=== PATIENT | female | born 1995 | race Caucasian/White ===

== ENCOUNTER 2018-12-08 11:44 | Outpatient (REF) | payer MEDICAID, SELFPAY ==
--- NOTE | 2018-12-08 10:45 | PAPFT_PTH ---
PATIENT: Nimisha Olivo LOC: [facility] U#:[id number] AGE/SX: 23/F ROOM: RE12/08/[address]: Mahnaz Gilbert NP : 1995 BED: DIS: 12/08/2018 SPEC #: [id number] RECD: 12/08/18 18:11 STATUS: ASHLEIGH RENadia #: [id number] LUL: 12/08/18 10:[address]: Mahnaz Gilbert NP DEPT: [facility] Cytology RECD BY: Genevieve Gonzalez ENTERED: 12/08/18 18:11 SP TYPE: PAPFT OTHR DR: Yaw Becerra MD Tissues: 1 - CX/ENDOCX FOR PAP SMEARS Procedures: PAP THIN PREP/[facility] Screening Comments: [id number] (CHLAMYDIA/GC)
[2018-12-09 13:35] LABS: Chlamydia Result Negative; GC Result Negative; Specimen Description SEE COMMENTS
== END 2018-12-08 12:04 ==
LOC: LBN 11:44
PROVIDERS: PCP Pediatrics; Visit Provider Nurse Practitioner Women's Health
DX: Z12.4 Encounter for screening for malignant neoplasm of cervix (principal); Z11.3 Encounter for screening for infections with a predominantly sexual mode of transmission
CPT/HCPCS: 87491; 87591; 88142

== ENCOUNTER 2019-03-10 13:24 | Outpatient (REF) | payer MEDICAID, SELFPAY ==
[2019-03-10 18:15] LABS: HCT 43.4 % (36.0-46.0); HGB 14.4 g/dL (12.0-15.5); Mean Corp. HGB Concentration 33.2 g/dL (32.0-36.0); Mean Corpuscular Hemoglobin 28.9 pg (27.0-33.0); Platelet Count 266 x1000/uL (130-400); RBC 4.99 m/cumm (4.00-5.20); RBC Distribution Width 13.8 % (11.7-14.6); White Blood Cell Count 7.91 k/cumm (4.4-10.8)
[2019-03-10 18:20] LABS: ALT 17 U/L (12-78); AST 14 U/L (15-37); Albumin 3.3 g/dL (3.4-5.0); Alkaline Phosphatase 90 U/L (46-116); BUN 10 mg/dL (7-18); Bilirubin, Total 0.3 mg/dL (0.2-1.0); CREATININE 0.63 mg/dL (0.55-1.02); Calcium 9.3 mg/dL (8.5-10.1); Chloride 103 mmol/L (98-107); Glucose 88 mg/dL (70-100); Potassium 4.4 mmol/L (3.5-5.1); Sodium 139 mmol/L (136-145); Total Protein 6.7 g/dL (6.4-8.2)
== END 2019-03-10 13:44 ==
LOC: NCHCN 13:24
PROVIDERS: PCP Pediatrics; Visit Provider Nurse Practitioner Family
DX: N92.4 Excessive bleeding in the premenopausal period (principal)
CPT/HCPCS: 80053; 85027

== ENCOUNTER 2019-07-18 01:38 | Outpatient (CLI) | payer MEDICAID, SELFPAY ==
--- NOTE | 2019-07-18 10:23 | DI.US_ITS ---
EXAM: US BREAST LT LIMITED CLINICAL HISTORY: 2 x 2 x 1 cm lump felt at 12:00 o'clock at bra line, N63.20, pt states 5:00 o'cloc k TECHNIQUE: Ultrasound performed using standard protocol. FINDINGS: Ultrasound examination of the breast was performed to evaluate questionable palpable abnormality in t he 5 o'clock position. No intramammary mass was identified. A 13 x 12 x 2 millimeter subcutaneous h ypoechoic avascular horizontally oriented nodule was seen which is not in breast parenchyma. IMPRESSION: No intramammary mass identified.
== END 2019-07-18 01:58 ==
PROVIDERS: Visit Provider Nurse Practitioner Women's Health
DX: N63.23 Unspecified lump in the left breast, lower outer quadrant (principal); R22.2 Localized swelling, mass and lump, trunk
CPT/HCPCS: 76642

== ENCOUNTER 2019-10-03 22:15 | Emergency (ER) | payer MEDICAID, SELFPAY ==
[2019-10-03 22:20] VITALS: BP 121/86; PULSE 90; RESP 16; TEMP 36.2; O2SAT 96
--- NOTE | 2019-10-03 22:30 | ED.GENADUL_ITS ---
Discharge Plan Disposition Patient Disposition: HOME Condition: Good Discharge Details Chief Complaint: RashLesion Clinical Impression: Herpetic mayra Primary Care Provider: Radha,Local ED Provider: Indra Lozano Home Meds and New Rx's Prescriptions: New acyclovir 5 % cream 1 applic TP Q4H 7 Days Qty: 5 RF: 0 No Action methadone 10 mg tablet 100 mg PO DAILY RF: 0 Discharge Instructions Additional Instructions: You have herpetic mayra at this stage. There is no evidence of bacterial infection currently. Please apply the cream as directed. Please keep your lesions covered with a Band-Aid at all times. Once the symptoms resolve I would recommend talking with your primary care provider about potential chronic prophylaxis with oral medication if you notice any worsening of your symptoms, or any new symptoms such as vomiting, diarrhea, fever, chills, shortness of breath, chest pain, numbness, weakness, or fainting , please return immediately to the emergency department for reevaluation. Please follow up with your primary care provider as soon as possible for reassessment and reevaluation. As always, it was a pleasure participating in your medical care today. Medical Decision Making This is a 24-year-old female who presents today with 3 small lesions on the distal tip of her right index finger. There is associated burning. Is been present for the last 24 to 48 hours. She had similar lesions in the same location a few years ago, however they resolved on their own. Signs and symptoms appear clinically consistent with early herpetic marya. Will prescribe topical acyclovir. Discussed the importance of always keeping it covered. At this time there is no clinical evidence of cellulitis, abscess, joint infection, or other significant abnormality. She denies IV or illicit drug use, she does state that she used to do IV drugs 2 to 3 years ago but has not used any since then. No cardiac murmur on exam. No evidence of Osler nodes or Janeway lesions. I have extensively reviewed the treatment plan and discharge instructions with the patient. I have addressed all patient concerns at this time. The patient was made aware of what symptoms to monitor for that would warrant a return to the emergency department. Discussed the plan with the patient, they demonstrate verbal understanding and agreement with our assessment and plan at this time. HPI General Date/Time Provider Initiated Documentation: 10/03/19 22:16 . HPI Narrative: 24-year-old female with no significant past medical history who presents today for evaluation of small lesions on her right index finger. Patient states that the rash developed 48 hours ago, is gradually been worsening. She admits to mild burning sensation in that location. She did have symptoms like this 2 or 3 years ago, however they resolved on its own. She denies any fever or chills. She denies any previous history of herpes. She has no other complaints at this time. No other modifying factors. Related Data Home Medications Medication Instructions Recorded Confirmed methadone 10 mg tablet 100 mg PO DAILY tab 09/05/19 10/03/19 acyclovir 1 applic TP Q4H 7 Days #5 gm 10/03/19 Previous Rx's Medication Instructions Recorded acyclovir 1 applic TP Q4H 7 Days #5 gm 10/03/19 Allergies Allergy/AdvReac Type Severity Reaction Status Date / Time No Known Allergies Allergy Unverified 10/03/19 22:22 General Stated Complaint: RashLesion FERNANDA: 5 Review of Systems All systems reviewed & are unremarkable except as noted in HPI and below PFSH Medical History (Updated 07/24/19 @ 09:14 by Mahnaz Gilbert NP) History of opioid abuse (Acute) Subcutaneous nodule of breast (Acute) L breast, US done 07/21/19 Social History (Updated 12/08/18 @ 12:12 by Mahnaz Gilbert NP) Smoking/Tobacco Use Status: Current every day Tobacco Type: cigarettes Alcohol Intake: current Alcohol Intake frequency: a few times a week Drug use: Current Sobriety Substance use type: former substance user What type of physical activity do you participate in: none Do you feel safe at home: Yes Do you feel safe in your relationship?: Yes Female Reproductive History Menstrual control method: pills (gets them from [facility]) Exam Narrative Exam Narrative: 1.Const: Well-nourished, Well-developed, appearing stated age 2.Eyes: PERRL, no conjunctival injection, and symmetrical lids. 3.ENT: Atraumatic external nose and ears. Moist MM. Neck: Symmetric, trachea midline, No thyromegaly. 4.CVS: +S1/S2, No murmurs or gallops. Peripheral pulses 2+ and equal in all extr emities. Brisk capillary refill in all extremities. 5.RESP: Unlabored respiratory effort. Clear to auscultation bilaterally. No wheezes rales or rhonchi 6.GI: Soft, Nontender/Nondistended, No hepatosplenomegaly. No guarding or rebound. 7.MSK: Normocephalic/Atraumatic, Extremities w/o deformity or ttp No cyanosis or clubbing, Normal movement of all extremities 8.Skin: Warm, Dry. Right index finger demonstrates 3 small lesions, dark centers, mild pale borders, on the lateral aspect of the distal tip of the right index finger. No vesicles at this point. No redness warmth or drainage. Normal movement of the finger. 9.Neuro: clinical trial assistant II-XII grossly intact. Sensation grossly intact, no focal neurologic deficits. 10.Psych: (AAO) x3. Appropriate mood and affect Course Vital Signs Vital signs: Vital Signs Temperature 36.2 C L 10/03/19 22:20 Pulse 90 10/03/19 22:20 Respiratory Rate 16 10/03/19 22:20 Blood Pressure 121/86 10/03/19 22:20 Pulse Oximetry 96 10/03/19 22:20 Temperature 36.2 C L 10/03/19 22:20 Temperature Source Temporal Artery Scan 10/03/19 22:20 Pulse 90 10/03/19 22:20 Respiratory Rate 16 10/03/19 22:20 Respiratory Effort Non-Labored 10/03/19 22:22 Blood Pressure 121/86 10/03/19 22:20 Blood Pressure Position Sitting 10/03/19 22:20 Pulse Oximetry 96 10/03/19 22:20 Oxygen Delivery Method Room Air 10/03/19 22:20 Oxygen Flow Rate 0 10/03/19 22:20 Pain Level 7 10/03/19 22:20
--- NOTE | 2019-10-04 14:12 | W.ED.FU ---
[facility] called to state that patient's insurance does not cover acyclovir cream or ointment. Upon review of herpeniya nunez on up-to-date, you can also prescribe acyclovir 200 mg 3-4 times daily. A prescription was given over the phone to the pharmacist for acyclovir 200 mg p.o. 3 times daily x7 days.
== END 2019-10-03 22:35 | disposition home or self-care (01) ==
PROVIDERS: Emergency Provider Student in an Organized Health Care Education/Training Program
DX: B00.89 Other herpesviral infection (principal)
CPT/HCPCS: 99283

== ENCOUNTER 2019-10-05 09:34 | Outpatient (REF) | payer MEDICAID, SELFPAY ==
[2019-10-05 12:26] LABS: HCT 43.3 % (36.0-46.0); HGB 14.4 g/dL (12.0-15.5); Mean Corp. HGB Concentration 33.3 g/dL (32.0-36.0); Mean Corpuscular Volume 87.3 fL (80-95); Mean Platelet Volume 9.4 fL (8.0-11.0); Platelet Count 300 x1000/uL (130-400); RBC 4.96 m/cumm (4.00-5.20); RBC Distribution Width 13.4 % (11.7-14.6); White Blood Cell Count 9.53 k/cumm (4.4-10.8)
[2019-10-05 12:43] LABS: ALT 14 U/L (14-59); AST 16 U/L (15-37); Albumin 3.5 g/dL (3.4-5.0); Alkaline Phosphatase 83 U/L (46-116); Anion Gap 7.6 mmol/L (3-11); BUN 7 mg/dL (7-18); Bilirubin, Total 0.2 mg/dL (0.2-1.0); CO2 31.4 mmol/L (21.0-32.0); CREATININE 0.58 mg/dL (0.55-1.02); Calcium 9.2 mg/dL (8.5-10.1); Chloride 103 mmol/L (98-107); Glucose 85 mg/dL (74-106); Potassium 3.9 mmol/L (3.5-5.1); Sodium 142 mmol/L (136-145); TSH (W/Ref FT4) 3.97 uIU/mL (0.36-3.74); Total Protein 6.9 g/dL (6.4-8.2)
[2019-10-05 13:06] LABS: FREE T4 0.99 ng/dL (0.76-1.46)
[2019-10-05 13:24] LABS: PROTEIN 14.9 mg/dL
[2019-10-05 13:26] LABS: COMMENT (LAB VIEW ONLY) 157.35 mg/dL; Microalb ug/mg Crea 3.4 ug/mg Cr
[2019-10-05 13:28] LABS: COMMENT (LAB VIEW ONLY) 156.24 mg/dL; Prot/Crea Ur Ratio 0.09
[2019-10-06 10:15] LABS: HIV-1/2 Ag & Ab Screen Negative (Negative)
== END 2019-10-05 09:54 ==
LOC: NCHCN 09:34
PROVIDERS: Visit Provider Nurse Practitioner Family
DX: Z87.898 Personal history of other specified conditions (principal); F19.21 Other psychoactive substance dependence, in remission; Z11.4 Encounter for screening for human immunodeficiency virus [HIV]
CPT/HCPCS: 80053; 85027; 87389; 82043; 82565; 82570; 84156; 84439; 84443

== ENCOUNTER 2019-10-17 03:33 | Outpatient (CLI) | payer MEDICAID, SELFPAY | END 2019-10-17 03:53 | PROVIDERS: PCP Nurse Practitioner Family; Visit Provider Nurse Practitioner Family | DX: R55 Syncope and collapse (principal); I49.3 Ventricular premature depolarization | CPT/HCPCS: 93225 ==

== ENCOUNTER 2019-10-20 12:51 | Outpatient (CLI) | payer MEDICAID, SELFPAY ==
--- NOTE | 2019-10-23 08:23 | W.HOLTRPT ---
Date of service: 10/23/19 Time of Service: 08:23 Holter Monitor Report Holter Monitor Note: Is a 2-day event monitor ordered for indication of near syncope. ?Patient was in normal sinus rhythm for the entirety of the recording. ?There were 0 episodes of supraventricular tachycardia and 0 singular premature atrial contractions. ?There were 0 episodes of ventricular tachycardia and 20 total single ventricular ectopic beats. ?No episodes of atrial fibrillation, no pauses greater than 3 seconds and no episodes of high degree heart block. ?Patient diary event was associated with sinus rhythm and sinus tachycardia at a rate up to 115 bpm.
== END 2019-10-20 13:11 ==
PROVIDERS: PCP Nurse Practitioner Family; Visit Provider Nurse Practitioner Family
DX: R55 Syncope and collapse (principal); I49.3 Ventricular premature depolarization
CPT/HCPCS: 93226

== ENCOUNTER 2020-01-17 12:36 | Outpatient (REF) | payer MEDICAID, SELFPAY ==
[2020-01-19 12:57] LABS: Chlamydia Result Negative (Negative); GC Result Negative (Negative)
== END 2020-01-17 12:56 ==
LOC: LBN 12:36
PROVIDERS: PCP Nurse Practitioner Family; Visit Provider Nurse Practitioner Women's Health
DX: Z11.3 Encounter for screening for infections with a predominantly sexual mode of transmission (principal)
CPT/HCPCS: 87491; 87591

== ENCOUNTER 2020-01-24 00:41 | Outpatient (CLI) | payer MEDICAID, SELFPAY ==
--- NOTE | 2020-01-24 07:04 | DI.US_ITS ---
EXAM: US PELVIS TRANSVAGINAL CLINICAL HISTORY: Pelvic Pain, excessive weight gain, ABNL UTERINE BLEEDING,R10.2. TECHNIQUE: Transabdominal and tranvaginal imaging was performed using standard protocol. COMPARISON: No exams were available for comparison FINDINGS: KIDNEYS: Kidneys are symmetric in size. No evidence of renal calculi. No evidence of hydronephrosis. No renal mass or cyst identified. UTERUS: Anteverted. The uterus measures 5.6 x 3.3 x 4.2 cm. Endometrium: 6 millimeters in thickness. Homogeneous. Myometrium: Unremarkable. Cervix: Unremarkable. OVARIES: Right: Cyst or mass: None. Left: Cyst or mass: None. DOPPLER: Color: Symmetric and uniform flow to both ovaries. No hyperemia. The evaluation of the blood flow to left ovary was somewhat limited due to the position of the ovary, posterior to the uterus. No evidence of torsion. CUL-DE-SAC: Free fluid: None. IMPRESSION: 1. Normal-appearing uterus with endometrial stripe within normal limits. 2. Unremarkable bilateral ovaries. DATA REPOSITORY:
== END 2020-01-24 01:01 ==
PROVIDERS: PCP Nurse Practitioner Family; Visit Provider Nurse Practitioner Women's Health
DX: R10.2 Pelvic and perineal pain (principal); R63.5 Abnormal weight gain; N93.8 Other specified abnormal uterine and vaginal bleeding
CPT/HCPCS: 76830; 76856

== ENCOUNTER 2020-02-15 10:19 | Outpatient (REF) | payer MEDICAID, SELFPAY ==
[2020-02-15 15:46] LABS: HCT 44.9 % (36.0-46.0); HGB 14.8 g/dL (12.0-15.5); Mean Corpuscular Hemoglobin 28.4 pg (27.0-33.0); Mean Platelet Volume 9.7 fL (8.0-11.0); Platelet Count 358 x1000/uL (130-400); RBC 5.22 m/cumm (4.00-5.20); RBC Distribution Width 13.5 % (11.7-14.6); White Blood Cell Count 10.02 k/cumm (4.4-10.8)
[2020-02-15 17:54] LABS: TSH (W/Ref FT4) 1.11 uIU/mL (0.36-3.74)
== END 2020-02-15 10:39 ==
LOC: NCHCN 10:19
PROVIDERS: PCP Nurse Practitioner Family; Visit Provider Nurse Practitioner Family
DX: R63.5 Abnormal weight gain (principal)
CPT/HCPCS: 85027; 84443

== ENCOUNTER 2020-08-26 21:39 | Outpatient (REF) | payer MEDICAID, SELFPAY ==
[2020-08-26 20:43] LABS: Bilirubin Negative (Negative); Blood Trace-intact (Negative); Clarity Sl Cloudy (Clear); Glucose Negative (Negative); Ketones Negative (Negative); Leukocyte Esterase Negative (Negative); Nitrite Negative (Negative); Specific Gravity 1.025 (1.005-1.025); Urobilinogen 0.2 EU/dL (Up TO 0.2)
[2020-08-26 20:44] LABS: Bacteria Moderate HPF (Negative); C & S Indicated? Yes; Casts Negative LPF (Negative); Crystals Negative HPF (Negative); Epithelial Cells Few HPF (Negative); Mucus Negative (Negative); WBC 0-2 HPF (0-5)
[2020-08-26 20:56] LABS: Hemoglobin A1C 5.3 % (<5.7)
[2020-08-26 21:06] LABS: Anion Gap 6.9 mmol/L (3-11); BUN 8 mg/dL (7-18); CO2 31.1 mmol/L (21.0-32.0); CREATININE 0.74 mg/dL (0.55-1.02); Chloride 103 mmol/L (98-107); Glucose 79 mg/dL (74-106); Potassium 3.8 mmol/L (3.5-5.1); Sodium 141 mmol/L (136-145); TSH (W/Ref FT4) 1.56 uIU/mL (0.36-3.74); Vitamin B12 500 pg/mL (193-986)
== END 2020-08-26 21:59 ==
LOC: NCHCN 21:39
PROVIDERS: PCP Nurse Practitioner Family; Visit Provider Nurse Practitioner Family
DX: M79.671 Pain in right foot (principal); G62.9 Polyneuropathy, unspecified; R82.998 Other abnormal findings in urine; M79.672 Pain in left foot
CPT/HCPCS: 80048; 81003; 81015; 82607; 83036; 84443; 87086

== ENCOUNTER 2020-09-23 11:08 | Emergency (ER) | payer MEDICAID, SELFPAY ==
[2020-09-23 11:13] VITALS: BP 131/79; PULSE 98; RESP 16; TEMP 36.7; O2SAT 97
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
--- OUTSIDE RECORDS SUMMARY | 2020-09-23 11:37 | XMS_ITS | Encounter Summary ---
:1995 Author Care Team Providers Name Role Phone Lavelle Grace Primary Care Provider [phone] Lavelle Edwards Referring Provider [phone] Reason for Visit pain in bilateral feet Assessment and Plan Assessment Note Assessment/Plan: 1. bilateral Plantar fasciitis 2. Bilateral Foot Pain -Discussed bio and pathomechanics of shorty t type with patient. -Dispensed size 4M otc inserts. advised pt that if they work for her to consider the custom orthotics. -Disp paperwork on info for sales merchandising specialist's -Dispensed, demonstrated and explained s tretching exercises. Instructed pt to stretch as many times as he can throu gh out the day. -Possible Rx: custom molded orthotics: p olypropylene shell semi-flexible(thickness to pt weight 265 lbs) b/l deep heel cups, extrinsic rearfoot posts, higher arch to meet cavu s foot type, b/l 1st ray cut out, /16 PPT padding to sulcus, 1/4 neoprene top cover full length, partial bottom cover distal device to end of orthotic -Advised patient on proper shoe gear for condition. Advised pt to use running sneakers. Advised pt not to walk without support, even in the house. -Discussed with pt that if his pain tramaine in at 9-07/13 may get steroid injection. -Advised patient to f/u with PCP as dire cted. -RTC x 4 weeks 1. Bilateral plantar fasciitis 2. Pain in both feet 3. Pain in left foot Discussion Note: None recorded.Patient educational handouts: No information available. Plan of Care Reminders Provider Appointments None ? ? recorded. Lab None ? ? recorded. Referral None ? ? recorded. Procedures None ? ? recorded. Surgeries None ? ? recorded. Imaging None ? ? recorded. Medications Name Start Date ? ? acyclovir 200 mg capsule ? TAKE ONE CAPSULE BY MOUTH THREE TIMES A DAY FOR 7 DAY S acyclovir 400 mg tablet ? Take 1 tablet 3 times a day by oral route. amitriptyline 10 mg tablet ? TAKE TWO TABLETS BY MOUTH AT BEDTIME amoxicillin 500 mg capsule ? TAKE ONE CAPSULE BY MOUTH THREE TIMES A DAY FOR 10 DA YS amoxicillin 500 mg tablet ? TAKE ONE TABLET BY MOUTH THREE TIMES A DAY levothyroxine 25 mcg tablet ? Take 1 tablet every day by oral route. methadone 5 mg/5 mL oral solution ? Take 100 mg every day by oral route. polyethylene glycol 3350 17 gram/dose oral powder ? MIX 17 GRAMS 1 TABLESPOONFUL DIREC RADAMES IN 8 OZ OF LIQUID ONCE TO TWICE DAILY AND TAKE NEEDED triamcinolone acetonide 0.1 % topical cream ? APPLY TO AFFECTED AREA S TWO TIMES A DAY EXTERNALLY Medications Administered None recorded. Vitals None recorded. Results Lab Results None recorded. Allergies Code Code System Name Reaction Severity Onset NKDA ? ? ? Problems Name Status Onset Date Source ? [...] Gain Active ? ? Procedures None recorded. Vaccine List Vaccine Type Tdap 1995 Social History Tobacco Smoking Status Never Smoker Smokeless Tobacco Status Never used smokeless tobacco Has patient visited an area known to be N high risk for 2019 n-CoV? In the 14 days before symptom onset, did N the patient have close contact with a person who is under investigation for 2019-nCoV while that person was ill? Most Recent Tobacco Use Screening 08/19/2020 E-cigarette/Vape Status Never used electronic cigarettes In the 14 days before symptom onset, did N the patient spend time in [facility]? If patient spent time in [facility] N - Does the patient live in [facility]? In the 14 days before symptom onset, did N the patient have close contact with a laboratory-confirmed 2019-nCoV while that case was ill? Functional Status Unknown. Past Encounters 08/19/2020 Bilateral Plantar Fasciitis; Pain in Bot h Feet; Pain in Left Foot Danitza Garces DPM: [address] [place] [address], Ph. History of Present Illness Note: Subjective: Patient is 25 y/o female presents with 6 month h/o bilateral foot pain.
<div>pt states both feet started hurting past several months. Pt states she has been doing some stretching. Pt states his pain is 10/10 in am and in evening after work.. </div><div>Pt pr esents in [employer] sneakers. No other acute pedal concerns.
</div><div>Chart and medications reviewed and Documented.</div> Review of Systems ? Notes: all neg at this time Physical Exam ? Notes: P/E:
<div>VASC:
</div> <div>DP/PT pulses palpable(2/4) b/l LE. 0/4 pitting edema to b/l LE. Ski n temp
</div><div>warm to warm prox to distal b/l LE. Intact pedal hair gr owth b/l LE.
</div><div>Capillary Fill time immediate bilateral; neg Santiago icosities b/l; neg Rubor
</div><div>b/l
</div> <div>
</div><div>DERM:
</div><div>No open lesions noted b/l.
</div ><div>b/l plantar medial hallux DIPJ hpk lesion: neg intralesional hemorrhage +POP</div><div>Nails 1-10 short, groomed, wnl.
</div><div>
</div> <div>MUSC:
</div><div>MMT 5/5 to all major muscle groups b/l LE with de creased AJ, STJ, and pedal
</div><div>joint ROM b/l. neg equinus b/l. No POP to b/l Achilles tendon insertions, +POP
</div><div>b/l plantar f ascial insertion and medial to lateral compression of b/l os
</div><div>mohsen cis: neg ecchymosis/local edema. </div><div>Neg POP along PT, peroneal or Ac hilles tendons. 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
</div><di v>NEURO:
</div><div>Protective threshold intact b/l LE as per 5.07 monofilam ent().
</div>
[2020-09-23] MEDS: Ibuprofen 600 MG TAB PO (11:41)
--- NOTE | 2020-09-23 11:43 | ED.GENADUL_ITS ---
Discharge Plan Disposition Patient Disposition: HOME Condition: Stable Discharge Details Clinical Impression: Finger injury Primary Care Provider: Lavelle Edwards ED Provider: Asha Hardy Home Meds and New Rx's Prescriptions: Continued methadone 10 mg tablet 105 mg PO DAILY RF: 0 amitriptyline 10 mg tablet 20 mg PO QHS RF: 0 Discharge Instructions Instructions: Contusion in Adults (ED), Tendon Rupture (ED) Additional Instructions: Please return immediately to the emergency department if you develop any new or worsening symptoms, if your condition does not improve as expected, or if you become otherwise concerned. It is extremely important that you call soon as possible to make an appointment to be seen in follow-up for this visit by your primary care doctor and orthopedic surgery as we discussed. Referrals: Lavelle Edwards NP [Primary Care Provider] - Chris Charles MD [ [facility] STAFF PHYSICIAN] - Discharge Data Discharge Date/Time-TO BE ENTERED AT DEPARTURE: 09/23/20 13:04 Medical Decision Making Nimisha Olivo is a 25-year-old woman without reported history of major medical problems who presents to the emergency department with finger injury after fall this morning. Edema and ecchymosis of the left third digit, edema of the second digit, diffuse tenderness to palpation. Extension and flexion limited a third digit secondary to pain. Concern for fracture, tendon injury. Exam/history at this time is not consistent with significant injury proximal to left hand, significant injury to the right upper extremity, lower extremities, head/spine/thorax/abdomen, nonmechanical etiology of fall. Plan for x-rays. X-rays show no fracture. Concern for possible tendon injury, though exam is not entirely consistent with either flexor or extensor injury. Plan for finger splint the third digit, outpatient follow-up. Patient placed on Ortho list for follow-up. I had a lengthy discussion with Patient regarding return to emergency department precautions, home care, and importance of outpatient follow-up. Pt verbalizes understanding of the plan and is amenable. Patient discharged to home with clear plan for outpatient follow-up. All questions were answered. Disposition decision was made weighing the risks and benefits of hospitalization versus outpatient treatment, the risk for further decompensation, and the patient's wishes. Medical Records Medical records reviewed: Yes I reviewed the patient's medical records. Imaging Data Radiologic Study: Attestation: I personally reviewed and interpreted this imaging study as follows: Radiologist's impression: EXAM: XR HAND LT COMPLETE CLINICAL HISTORY: trauma, pain left 2nd, 3rd digits. TECHNIQUE: 2D digital imaging was performed. COMPARISON: No exams were available for comparison FINDINGS: BONES: No acute fracture is present. No bony destructive lesion is seen. JOINTS: No dislocation present. SOFT TISSUE: Soft tissue swelling of the index, middle and ring fingers. No radiopaque foreign bodies are seen. IMPRESSION: 1. No acute fracture or dislocation. 2. Soft tissue swelling of the index, middle and ring fingers. No radiopaque foreign bodies. HPI General Mode of arrival: ambulatory . Date/Time Provider Initiated Documentation: 09/23/20 11:10 . Limitations to Documentation: no limitations . Information obtained by: patient, RN notes reviewed and old records reviewed . HPI Narrative: Nimisha Olivo is a 25-year-old woman without reported history of major medical problems presenting to the emergency department with finger pain. Patient reports that she was shoveling snow this morning when she slipped, falling to her hands and knees. Patient reports that she did not hit her head, did not lose consciousness. She reports that she was previously well and in her usual state of health, had no symptoms preceding the fall. Patient states the fall was mechanical. Patient reports that when she fell landing on her hands and knees, her left palm hit the ground with her third digit curled under her pa lm and her other fingers extended. Fall occurred at approximately 8:00 this morning. Patient reports that she has had significant swelling in her left third digit, also somewhat in her left second digit with worsening pain over time. Patient reports that she is unable to bend her third digit at all. She reports some mild tingling in the distal third digit. She denies any other injury or pain, denies skin wound. Denies preceding illness: No fever, shortness of breath, cough, vomiting, diarrhea. Related Data Home Medications Medication Instructions Recorded Confirmed methadone 10 mg tablet 105 mg PO DAILY tab 09/05/19 09/25/20 amitriptyline 20 mg PO QHS 09/23/20 09/25/20 Allergies Allergy/AdvReac Type Severity Reaction Status Date / Time No Known Allergies Allergy Unverified 09/25/20 09:19 General Stated Complaint: Orthopedic FERNANDA: 4 Review of Systems Narrative: Constitutional: denies fevers Eyes: denies eye pain ENT: denies ear pain, dental pain, sore throat Cardiovascular: denies chest pain Respiratory: denies SOB, cough GI: denies abdominal pain, vomiting, diarrhea : denies flank pain MSK: denies back pain, neck pain, reports finger pain as per HPI Skin: denies skin wound Neuro: denies headaches, weakness, reports tingling distal left third digit as per HPI [facility] Medical History (Updated 09/25/20 @ 11:42 by Lorie Reynaga) History of opioid abuse Subcutaneous nodule of breast L breast, US done 07/21/19 Social History Smoking/Tobacco Use Status: Current every day Tobacco Type: cigarettes Smoking risk assessment performed?: Yes Alcohol Intake: current Alcohol Intake frequency: a few times a week Drug use: Current Sobriety Substance use type: former substance user What type of physical activity do you participate in: none Do you feel safe at home: Yes Do you feel safe in your relationship?: Yes Female Reproductive History Menstrual control method: pills (gets them from [facility]) History History 1 Para Hx # Term Pregnancies Multiple births Hx # Pregnancies Ectopic pregnancies AB induced Hx Number of Living Children 0 AB spontaneous 1 Exam Narrative Exam Narrative: Constitutional: well and [id number]-[id number], pleasant, conversing normally HENT: head atraumatic/normocephalic/normal inspection, mucous membranes moist Eyes: conjunctiva normal, sclera normal, pupils 3mm b/l Neck: no stridor, normal ROM, trachea midline Resp: normal work of breathing, speaking in full sentences Cardio: normal rate, normal rhythm Skin: warm, dry, normal color, no rash Neuro: alert, not altered, grossly non-focal, normal tone Ext: Left hand with significant edema of the third digit, moderate edema of the second digit. There is ecchymosis to the dorsal aspect of the third digit over the PIP joint. Diffuse tenderness of the extensor and flexor surface of the third digit from the PIP joint to the distal tip without focality. Mild tenderness to palpation the extensor and flexor surface of the second digit diffusely. Brisk cap refill to the second and third digits. Sensation of the distal third and second digit is intact. Third digit is held in subtle flexion at the PIP joint. Patient is unable to extend the digit further, patient also is unable to flex the digit at all secondary to pain. Patient reports severe pain with either motion. Patient reports severe pain with attempts at passive extension and flexion as well. Normal flexion and extension of the second digit. Normal examination of the first, fourth, and fifth digits of the left hand. There is no tenderness to palpation of the dorsal or palmar surfaces of the left hand. Full range of motion of the wrist without tenderness of the wrist. Psych: normal mood, normal affect, normal behavior Course Vital Signs Vital signs: Vital Signs Temperature 36.7 C 09/23/20 11:13 Pulse 98 H 09/23/20 11:13 Respiratory Rate 16 09/23/20 11:13 Blood Pressure 131/79 09/23/20 11:13 Pulse Oximetry 97 09/23/20 11:13 Temperature 36.7 C 09/23/20 11:13 Temperature Source Skin 09/23/20 11:13 Pulse 98 H 09/23/20 11:13 Respiratory Rate 16 09/23/20 11:13 Respiratory Effort Non-Labored 09/23/20 11:18 Blood Pressure 131/79 09/23/20 11:13 Blood Pressure Position Sitting 09/23/20 11:13 Pulse Oximetry 97 09/23/20 11:13 Oxygen Delivery Method Room Air 09/23/20 11:13 Oxygen Flow Rate 0 09/23/20 11:13 Pain Level 7 09/23/20 11:13
--- NOTE | 2020-09-23 11:47 | DI.RAD_ITS ---
EXAM: XR HAND LT COMPLETE CLINICAL HISTORY: trauma, pain left 2nd, 3rd digits. TECHNIQUE: 2D digital imaging was performed. COMPARISON: No exams were available for comparison FINDINGS: BONES: No acute fracture is present. No bony destructive lesion is seen. JOINTS: No dislocation present. SOFT TISSUE: Soft tissue swelling of the index, middle and ring fingers. No radiopaque foreign ervin s are seen. IMPRESSION: 1. No acute fracture or dislocation. 2. Soft tissue swelling of the index, middle and ring fingers. No radiopaque foreign bodies. DATA REPOSITORY: RADIATION DOSE DELIVERED:
[2020-09-23 12:54] VITALS: BP 131/91; PULSE 78; RESP 18; TEMP 36.7; O2SAT 98
[2020-09-23 13:05] VITALS: BP 131/91; PULSE 78; RESP 18; TEMP 36.7; O2SAT 98
== END 2020-09-23 13:04 | disposition home or self-care (01) ==
PROVIDERS: Emergency Provider Student in an Organized Health Care Education/Training Program; PCP Nurse Practitioner Family
DX: S69.92XA Unspecified injury of left wrist, hand and finger(s), initial encounter (principal); R60.0 Localized edema; W00.0XXA Fall on same level due to ice and snow, initial encounter; Y93.H1 Activity, digging, shoveling and raking
CPT/HCPCS: 29130; 99283; 73130

== ENCOUNTER 2020-11-25 20:54 | Outpatient (REF) | payer MEDICAID, SELFPAY ==
[2020-11-28 14:23] LABS: COVID-19 RT-PCR UVMMC Result Negative (Negative)
== END 2020-11-25 20:55 | disposition home or self-care (01) ==
LOC: NCHCN 20:54
PROVIDERS: PCP Nurse Practitioner Family; Visit Provider Nurse Practitioner Family
DX: J02.9 Acute pharyngitis, unspecified (principal); Z20.822 Contact with and (suspected) exposure to COVID-19
CPT/HCPCS: 87077; U0003; 87070

== ENCOUNTER 2020-12-13 10:15 | Emergency (ER) | payer MEDICAID, SELFPAY ==
[2020-12-13 10:21] VITALS: BP 114/80; PULSE 113; RESP 18; TEMP 36.9; O2SAT 96
--- NOTE | 2020-12-13 10:27 | ED.GENADUL_ITS ---
Discharge Plan Disposition Patient Disposition: HOME Condition: Good Discharge Details Clinical Impression: Depression Primary Care Provider: Lavelle Edwards ED Provider: Indra Lozano Home Meds and New Rx's Prescriptions: Continued methadone 10 mg tablet 105 mg PO DAILY RF: 0 amitriptyline 10 mg tablet 20 mg PO QHS RF: 0 Discharge Instructions Instructions: Depression (ED) Additional Instructions: At this time you are safe for discharge. Our mental [facility] to set up notable resources for you on an outpatient basis. Please utilize these to their fullest. Please follow-up closely with your PCP. If you notice any worsening of your symptoms, or any new symptoms such as vomiting, diarrhea, fever, chills, shortness of breath, chest pain, numbness, weakness, or fainting , please return immediately to the emergency department for reevaluation. Please follow up with your primary care provider as soon as possible for reassessment and reevaluation. As always, it was a pleasure participating in your medical care today. Additionally [facility] has asked me to provide you with their counseling phone number to call if you have any concerns or want further assistance. It is [phone]. Referrals: Lavelle Edwards, COMPUTER SUPPORT ANALYST [Primary Care Provider] - Medical Decision Making 25-year-old female with a past medical history of PTSD, presents today for depression. Patient states over the last few days she has had a notably increasing stress at work, she was fired from her job/was forced to quit, and has felt notably depressed. She denies any homicidal or suicidal ideations though. She denies any plan to end her life. She has done self-inflicted harm by cutting her wrist in the past, but nothing recently. She is on methadone and amitriptyline, but has not missed any of these medications or doses. No other complaints at this time. She denies any IV or illicit drug use, alcohol use or other complaints. Physical exam is unremarkable, no evidence of self-inflicted wounds. Patient is notably cooperative, she has no plan of self-harm. No indication for one-to-one eval at this time. She is just seeking help for her mild depression. She wants assistance. We will recruit the help of mental health for evaluation, we will do screening labs out of an abundance of caution. Will monitor closely and reassess. 11:57 AM Patient has been seen and assessed by mental health. After speaking with him for over an hour they have come up with a notably thorough safety plan. Patient feels comfortable with this. She will be following up closely with her PCP hopefully today, and multiple check-in throughout the day over phone, and then close follow-up with mental health and psychiatry on an outpatient basis. Patient is in agreement with this plan. On reassessment by myself she continues to show no indication of plan for self-harm. She appears stable for discharge. Discussed red flags which to return. I have extensively reviewed the treatment plan and discharge instructions with the patient. I have addressed all patient concerns at this time. The patient was made aware of what symptoms to monitor for that would warrant a return to the emergency department. Discussed the plan with the patient, they demonstrate verbal understanding and agreement with our assessment and plan at this time. The documentation in this chart was dictated using [employer] dictation software. Please excuse any dictation errors. HPI General Date/Time Provider Initiated Documentation: 12/13/20 10:19 . HPI Narrative: 25-year-old female with a past medical history of PTSD, presents today for depression. Patient states over the last few days she has had a notably increasing stress at work, she was fired from her job/was forced to quit, and has felt notably depressed. She denies any homicidal or suicidal ideations though. She denies any plan to end her life. She has done self-inflicted harm by cutting her wrist in the past, but nothing recently. She is on methadone and amitriptyline, but has not missed any of these medications or doses. No other complaints at this time. She denies any IV or illicit drug use, alcohol use or other complaints. Related Data Home Medications Medication Instructions Recorded Confirmed methadone 10 mg tablet 105 mg PO DAILY tab 09/05/19 12/13/20 amitriptyline 20 mg PO QHS 09/23/20 12/13/20 Allergies Allergy/AdvReac Type Severity Reaction Status Date / Time No Known Allergies Allergy Unverified 12/13/20 10:24 General FERNANDA: 4 Review of Systems All systems reviewed & are unremarkable except as noted in HPI and below PFSH Medical History History of opioid abuse Subcutaneous nodule of breast L breast, US done 07/21/19 Social History Smoking/Tobacco Use Status: Current every day Tobacco Type: cigarettes Smoking risk assessment performed?: Yes Alcohol Intake: current Alcohol Intake frequency: a few times a week Drug use: Daily Substance use type: former substance user and marijuana Current gender identity: female What type of physical activity do you participate in: none Do you feel safe at home: Yes Do you feel safe in your relationship?: Yes Female Reproductive History Menstrual control method: pills (gets them from [facility]) History History 1 Para Hx # Term Pregnancies Multiple births Hx # Pregnancies Ectopic pregnancies AB induced Hx Number of Living Children 0 AB spontaneous 1 Exam Narrative Exam Narrative: 1.Const: Well-nourished, Well-developed, appearing stated age 2.Eyes: PERRL, no conjunctival injection, and symmetrical lids. 3.ENT: Atraumatic external nose and ears. Moist MM. Neck: Symmetric, trachea midline, No thyromegaly. 4.CVS: +S1/S2, No murmurs or gallops. Peripheral pulses 2+ and equal in all extremities. Brisk capillary refill in all extremities. 5.RESP: Unlabored respiratory effort. Clear to auscultation bilaterally. No wheezes rales or rhonchi 6.GI: Soft, Nontender/Nondistended, No hepatosplenomegaly. No guarding or re bound. 7.MSK: Normocephalic/Atraumatic, Extremities w/o deformity or ttp No cyanosis or clubbing, Normal movement of all extremities 8.Skin: Warm, Dry. No rashes or lesions. No evidence of self-inflicted wounds 9.Neuro: special machine stitcher II-XII grossly intact. Sensation grossly intact, no focal neurologic deficits. 10.Psych: (AAO) x3. Appropriate mood and affect
[2020-12-13 10:48] LABS: Abs Immature Grans 0.05 10^3/uL (0.0-0.06); Absolute Basophil Count 0.04 10^3/uL (0.0-0.2); Absolute Eosinophil Count 0.12 10^3/uL (0.0-0.7); Absolute Lymphocyte Count 4.03 10^3/uL (1.2-3.4); Absolute Monocyte Count 0.78 10^3/uL (0.1-0.8); Absolute Neutrophil Count 5.63 10^3/uL (1.2-6.7); Basophils % 0.4; Eosinophils % 1.1; HCT 43.2 % (36.0-46.0); HGB 14.5 g/dL (11.2-15.7); Immature Grans % 0.5; Lymphocytes % 37.8; MCH 28.3 pg (27.0-33.0); MCHC 33.6 % (32.0-36.0); MCV 84.2 fL (80-95); MPV 8.8 fL (8.0-11.0); Monocytes % 7.3; Neutrophils % 52.9; Nucleated RBC 0 %; Platelet Count 308 10^3/uL (130-400); RBC 5.13 10^6/uL (3.93-5.22); RDW-SD 39.8 fL; WBC 10.65 10^3/uL (4.4-10.8)
[2020-12-13 11:06] LABS: Salicylate 3.2 mg/dL (<2.8)
[2020-12-13 11:08] LABS: Acetaminophen < 2 ug/mL (10-30)
[2020-12-13 11:09] LABS: ETHANOL BLOOD < 3.0 mg/dL (<3)
[2020-12-13 11:10] LABS: *AMPHETAMINES SCREEN URINE Negative (Negative); *BARBITURATES SCREEN URINE Negative (Negative); *BENZODIAZEPINES SCREEN URINE Negative (Negative); Cannabinoids THC POSITIVE (Negative); Cocaine Screen,Urine Negative (Negative); METHADONE URINE SCREEN POSITIVE (Negative); OPIATES URINE SCREEN Negative (Negative)
[2020-12-13 11:10] LABS: ALT 24 U/L (14-59); AST 18 U/L (15-37); Albumin 3.4 g/dL (3.4-5.0); Alkaline Phosphatase 104 U/L (46-116); Anion Gap 10.6 mmol/L (3-11); BUN 6 mg/dL (7-18); Bilirubin, Total 0.3 mg/dL (0.2-1.0); CO2 25.4 mmol/L (21.0-32.0); CREATININE 0.7 mg/dL (0.55-1.02); Calcium 9.3 mg/dL (8.5-10.1); Chloride 101 mmol/L (98-107); Glucose 117 mg/dL (74-106); Potassium 3.6 mmol/L (3.5-5.1); Sodium 137 mmol/L (136-145)
[2020-12-13 11:24] LABS: Tricyclic Antidepressants POSITIVE (Negative)
--- NOTE | 2020-12-13 12:10 | NUR.NOTE ---
Pt feels safe for DC, has plan with mental health. Ambulated to exit with steady gait.
== END 2020-12-13 12:07 | disposition home or self-care (01) ==
PROVIDERS: Emergency Provider Student in an Organized Health Care Education/Training Program; PCP Nurse Practitioner Family
DX: F32.89 Other specified depressive episodes (principal)
CPT/HCPCS: 36415; 80053; 80307; 81025; 99283; 80320; 80329; 84443; 85025

== ENCOUNTER 2021-01-07 12:48 | Outpatient (REF) | payer MEDICAID, SELFPAY ==
[2021-01-09 14:05] LABS: COVID-19 RT-PCR UVMMC Result Negative (Negative)
== END 2021-01-07 12:49 | disposition home or self-care (01) ==
LOC: LBN 12:48
PROVIDERS: PCP Nurse Practitioner Family; Visit Provider Family Medicine
DX: Z20.822 Contact with and (suspected) exposure to COVID-19 (principal); J06.9 Acute upper respiratory infection, unspecified
CPT/HCPCS: U0003

== ENCOUNTER 2023-01-12 06:56 | Emergency (ER) | payer MEDICAID, SELFPAY ==
[2023-01-12 07:02] VITALS: BP 131/98; PULSE 110; RESP 18; TEMP 37.1; O2SAT 99
--- NOTE | 2023-01-12 07:15 | DI.CT_ITS ---
Exam(s) CT ABDOMEN PELVIS W EXAM: CT ABDOMEN PELVIS W CLINICAL HISTORY: mid and lower abdominal pain, n/v. TECHNIQUE: Imaging Protocol: Axial computed tomography images with coronal and sagittal reformatted images were created and reviewed CONTRAST MATERIAL: Intravenous: Omnipaque-350 100cc Oral: None COMPARISON: CT ABD PELVIS WITH CONTRAST from 07/07/2011 FINDINGS: VISUALIZED LUNG BASES: No nodules nor pleural effusions evident. ABDOMEN: There is no ascites. LIVER: There are no focal hepatic lesions evident. No dilated intrahepatic ducts. GALLBLADDER/BILIARY: No obvious gallbladder pathology. CBD is not dilated. PANCREAS: No evidence of pancreatic mass nor dilatation of the pancreatic duct. SPLEEN: Spleen is not enlarged. No obvious intrasplenic lesions. Splenic and portal veins are paten t. ADRENALS: There are no significant adrenal masses. KIDNEYS:No cysts evident. No solid renal masses. Possible small 3 millimeter nonobstructive calculus versus calyceal contrast in the right kidney.. ABDOMINAL AORTA: Abdominal aorta is not enlarged. LYMPH NODES:There is no retroperitoneal nor paraaortic adenopathy. ABDOMINAL WALL: No evidence of significant anterior abdominal wall nor inguinal hernia. GI: There is no evidence of bowel obstruction, free air, nor abscess. PELVIS: GI: No evidence of appendicitis.No significant sigmoid diverticular disease. LYMPH NODES: There is no intrapelvic nor inguinal adenopathy. REPRODUCTIVE: Uterus and ovaries appear age-appropriate. There are no extraovarian adnexal masses an d no free fluid in the cul-de-sac. URINARY BLADDER: No calculi nor obvious masses evident OSSEOUS: No fractures and no significant osseous lesions. IMPRESSION: 1. No evidence of appendicitis nor diverticulitis. No free fluid. 2. Adnexal regions unremarkable. 3. No acute findings evident. RADIATION DOSE DELIVERED: 881.56 mGy.cm Total DLP DATA REPOSITORY: All CT scans at this facility are submitted to the National Radiology Data Registry (NRDR) Dose Index Registry (DIR) with the [employer] (ACR). RADIATION OPTIMIZATION: All CT scans at this facility use at least one of these dose optimization te chniques: automated exposure control; mA and/or kV adjustment per patient size (includes targeted exa ms where dose is matched to clinical indication); or iterative reconstruction.
--- NOTE | 2023-01-12 07:23 | ED.GENADUL_ITS ---
Discharge Plan Discharge Details Chief Complaint: Abd Prob Primary Care Provider: Lavelle Reyna ED Provider: Herberth Gilbert Home Meds and New Rx's Prescriptions: No Action methadone 10 mg tablet 115 mg PO DAILY Rx Instructions: Per patient her dose has increased. amitriptyline 10 mg tablet 20 mg PO QHS Patient Comments: TAKE TWO TABLETS BY MOUTH AT BEDTIME Medical Decision Making 27 yo female with hx of prior substance abuse on methadone and denies current substance abuse, comes in with 2 weeks of what she says is blood urine and intermittent abdominal pain and n/v. Denies any fevers, chills, chest pain, dyspnea. She denies any prior abdominal surgeries. She can't think of anything that makes the pain better or worse. She arrives stable and appears well in no distress. She is tender without guarding in the mid abdomen, ruq and rlq. NO distention. No cva tenderness. Unclear etiology for her symptoms, concern for kidney stone vs appendicitis vs cholecystitis, will proceed with ua, hcg, cbc, cmp, lipase and ct abdomen/pelvis pt signed out to oncoming provider pending labs and imaging Differential Diagnosis Differential Diagnosis: kidney stone, cholecystitis, appendicitis Medical Records Medical records reviewed: Yes I reviewed the patient's medical records. Lab Data Lab results reviewed: Yes I reviewed the patient's lab results. HPI General Mode of arrival: ambulatory . Date/Time Provider Initiated Documentation: 01/12/23 06:56 . Limitations to Documentation: no limitations . Information obtained by: patient . History of Present Illness 27 year old F presents to the emergency department with the chief complaint of abdominal pain , described as moderate, Patient started experiencing this week(s) (2) and it has been intermittent. No relieving factors improve symptom(s), No exacerbating factors reported . Patient notes nausea/vomiting; denies fever/chills. Patient did receive the following treatments prior to arrival, none Related Data Home Medications Medication Instructions Recorded Confirmed methadone 10 mg tablet 115 mg PO DAILY 09/05/19 01/12/23 amitriptyline 10 mg tablet 20 mg PO QHS 09/23/20 12/13/20 Allergies Allergy/AdvReac Type Severity Reaction Status Date / Time No Known Allergies Allergy Unverified 12/13/20 10:24 General Stated Complaint: Abd Prob FERNANDA: 3 Review of Systems All systems reviewed & are unremarkable except as noted in HPI and below Constitutional Constitutional: Denies chills, Denies fever(s) and Denies weakness Cardiovascular Cardiovascular: Denies chest pain and Denies dyspnea Respiratory Respiratory: Denies cough and Denies dyspnea Gastrointestinal Gastrointestinal: Reports abdominal pain and Reports vomiting Musculoskeletal Musculoskeletal: Denies joint swelling Integumentary/Breasts Skin/Breast: Denies rash Neurologic Neurologic: Denies weakness PFSH All Active Problems (Updated 12/13/20 @ 11:59 by Indra Lozano DO) Depression (Chronic) Subcutaneous nodule of breast (Acute) L breast, US done 07/21/19 Cannabis use disorder, mild, abuse (Acute 04/09/15) Personal history of infections of central nervous system (Acute) [facility] [place]meningicoccal mennigitis with intercranial hemmorrahage, cardiac arrest and tracheostomy Posttraumatic stress disorder (Acute 09/05/13) sees Dr. Yu with ADHD, oppositional defiant behaviors Medical History History of opioid abuse Subcutaneous nodule of breast L breast, US done 07/21/19 Social History Smoking/Tobacco Use Status: Current every day Tobacco Type: cigarettes Smoking risk assessment performed?: Yes Alcohol Intake: current Alcohol Intake frequency: a few times a week Drug use: Daily Substance use type: former substance user and marijuana Current gender identity: female What type of physical activity do you participate in: none Do you feel safe at home: Yes Do you feel safe in your relationship?: Yes Female Reproductive History Menstrual control method: pills (gets them from ) History History 1 Para Hx # Term Pregnancies Multiple births Hx # Pregnancies Ectopic pregnancies AB induced Hx Number of Living Children 0 AB spontaneous 1 Exam Const General: no acute distress Orientation: alert HENMT Head: normal to inspection Ears: external ears normal General nose exam: external nose normal Mouth: moist mucous membranes Eyes General: appearance normal, both eyes and all related structures Neck Neck: normal visual inspection Resp Effort & Inspection: normal respiratory effort and able to speak in complete sentences Auscultation: clear to auscultation bilaterally Cardio Jugular venous pressure: no JVD Rate: regular rate Heart Sounds: no murmurs GI Palpation: soft and tender Skin General skin exam: no rashes or lesions noted Neuro General: patient alert and patient oriented x3 Extrem General: normal to inspection Psych Mental Status: mental status grossly normal Course Vital Signs Vital signs: Vital Signs Temperature 37.1 C 01/12/23 07:02 Pulse 110 H 01/12/23 07:02 Respiratory Rate 18 01/12/23 07:02 Blood Pressure 131/98 H 01/12/23 07:02 Pulse Oximetry 99 01/12/23 07:02 Temperature 37.1 C 01/12/23 07:02 Temperature Source Tympanic 01/12/23 07:02 Pulse 110 H 01/12/23 07:02 Respiratory Rate 18 01/12/23 07:02 Blood Pressure 131/98 H 01/12/23 07:02 Blood Pressure Position Sitting 01/12/23 07:02 Pulse Oximetry 99 01/12/23 07:02 Oxygen Delivery Method Room Air 01/12/23 07:02 Oxygen Flow Rate 0 01/12/23 07:02 Pain Level 6 01/12/23 07:02 Lab/Test Results Lab/Test Results: POC- Test(urine) Negative
[2023-01-12 07:24] LABS: Bilirubin Small (Negative); Blood Negative (Negative); Clarity Sl Cloudy (Clear); Glucose 100 mg/dL (Negative); Ketones Trace mg/dL (Negative); Leukocyte Esterase Small (Negative); Nitrite Negative (Negative); Specific Gravity >= 1.030 (1.005-1.025); Urobilinogen 0.2 mg/dL (Up to 0.2)
[2023-01-12 07:32] LABS: Bacteria Rare HPF (Negative); C & S Indicated? No/Sq. Contamination; Casts 0-2 Hyaline LPF (Negative); Crystals Negative HPF (Negative); Epithelial Cells Moderate HPF (Negative); Mucus Trace (Negative); RBC Negative HPF (0-2); WBC 0-2 HPF (0-5)
[2023-01-12] MEDS: Ondansetron 4 MG/2 ML VIAL IVP (07:48)
[2023-01-12] MEDS: Ketorolac 15 MG/ML VIAL IVP (07:48)
[2023-01-12] MEDS: Normal Saline 1,000 ML 1000 ML IV (07:56)
[2023-01-12 07:59] LABS: Abs Immature Grans 0.04 10^3/uL (0.0-0.06); Absolute Basophil Count 0.05 10^3/uL (0.0-0.2); Absolute Eosinophil Count 0.15 10^3/uL (0.0-0.7); Absolute Lymphocyte Count 4.62 10^3/uL (1.2-3.4); Absolute Monocyte Count 0.92 10^3/uL (0.1-0.8); Absolute Neutrophil Count 4.84 10^3/uL (1.2-6.7); Basophils % 0.5; Eosinophils % 1.4; HCT 47.4 % (36.0-46.0); HGB 15.6 g/dL (11.2-15.7); Immature Grans % 0.4; Lymphocytes % 43.5; MCH 28.6 pg (27.0-33.0); MCHC 32.9 % (32.0-36.0); MCV 87 fL (80-95); MPV 8.8 fL (8.0-11.0); Monocytes % 8.7; Neutrophils % 45.5; Platelet Count 286 10^3/uL (130-400); RBC 5.45 10^6/uL (3.93-5.22); RDW 13.2 % (11.7-14.6); RDW-SD 41.4 fL; WBC 10.62 10^3/uL (4.4-10.8)
[2023-01-12 08:14] LABS: ALT 23 U/L (14-59); AST 16 U/L (15-37); Albumin 3.5 g/dL (3.4-5.0); Alkaline Phosphatase 88 U/L (46-116); Anion Gap 3.3 mmol/L (3-11); BUN 9 mg/dL (7-18); Bilirubin, Total 0.2 mg/dL (0.2-1.0); CO2 30.7 mmol/L (21.0-32.0); CREATININE 0.8 mg/dL (0.55-1.02); Calcium 9.3 mg/dL (8.5-10.1); Chloride 102 mmol/L (98-107); Glucose 102 mg/dL (74-106); Lipase 17 U/L (16-77); Magnesium 1.7 mg/dL (1.8-2.4); Potassium 3.7 mmol/L (3.5-5.1); Sodium 136 mmol/L (136-145); Total Protein 7.6 g/dL (6.4-8.2)
[2023-01-12] MEDS: Normal Saline - Diluent 50 ML VIAL IJ (09:14)
[2023-01-12] MEDS: Omnipaque 350 MG/ML 500 ML BTL-Imaging package IJ (10:01)
--- NOTE | 2023-01-12 10:03 | W.EDPROG ---
Date of service: 01/12/23 Time of Service: 10:40 Medical Decision Making Patient was seen and assessed by my colleague Dr. Herberth Gilbert. Please refer to his HPI, physical exam, assessment and plan. At time of transition we are awaiting CT scan. Laboratory work-up has returned normal, no signs of significant abnormality. Urinalysis is negative for evidence of infection. CT scan results demonstrate no evidence of acute process. Patient otherwise looks well. She has been able to tolerate p.o. She still does have some mild epigastric discomfort, but no signs of acute surgical abdomen on reassessment. At this time the patient feels comfortable going home and on clinical assessment she appears stable for discharge. I do wonder if a component of her symptoms are secondary to gastritis, gastric ulcer or gastric irritation. No evidence of pancreatitis or other significant abnormality otherwise. Patient will be discharged with Protonix, famotidine and Carafate. Recommend close follow-up on an outpatient basis as well as potential need for endoscopy if her symptoms do not improve with time. Discussed red flags for which to return. I have extensively reviewed the treatment plan and discharge instructions with the patient and their family. I have addressed all patient concerns at this time. The patient and family was made aware of what symptoms to monitor for that would warrant a return to the emergency department. Discussed the plan with the patient and family, they demonstrate verbal understanding and agreement with our assessment and plan at this time. The documentation in this chart was dictated using [employer] dictation software. Please excuse any dictation errors. FINDINGS: VISUALIZED LUNG BASES: No nodules nor pleural effusions evident. ABDOMEN: There is no ascites. LIVER: There are no focal hepatic lesions evident. No dilated intrahepatic ducts. GALLBLADDER/BILIARY: No obvious gallbladder pathology. CBD is not dilated. PANCREAS: No evidence of pancreatic mass nor dilatation of the pancreatic duct. SPLEEN: Spleen is not enlarged. No obvious intrasplenic lesions. Splenic and portal veins are patent. ADRENALS: There are no significant adrenal masses. KIDNEYS:No cysts evident. No solid renal masses. Possible small 3 millimeter nonobstructive calculus versus calyceal contrast in the right kidney.. ABDOMINAL AORTA: Abdominal aorta is not enlarged. LYMPH NODES:There is no retroperitoneal nor paraaortic adenopathy. ABDOMINAL WALL: No evidence of significant anterior abdominal wall nor inguinal hernia. GI: There is no evidence of bowel obstruction, free air, nor abscess. PELVIS: GI: No evidence of appendicitis.No significant sigmoid diverticular disease. LYMPH NODES: There is no intrapelvic nor inguinal adenopathy. REPRODUCTIVE: Uterus and ovaries appear age-appropriate. There are no extraovarian adnexal masses and no free fluid in the cul-de-sac. URINARY BLADDER: No calculi nor obvious masses evident OSSEOUS: No fractures and no significant osseous lesions. IMPRESSION: 1. No evidence of appendicitis nor diverticulitis. No free fluid. 2. Adnexal regions unremarkable. 3. No acute findings evident. Procedures EJ/Peripheral Line Arm L: Time Out Performed: Yes Skin Cleansed in Sterile Fashion: Yes Size (gauge): 20 IV Secured and Dressing Applied: Yes Patient Tolerated Procedure: well and no complications Additional Comments: Candidate vein examined with linear array probe - confirmed collapsibility, lack of pulsatility, and proper anatomic location. Using aseptic technique, IV catheter inserted with flash of blood noted, flow of venous blood confirmed. Flushes easily and without pain. No hematoma or complications noted. IV secured. Patient tolerated well. Phlebotomy Estimated cc's Blood Obtained: 1 Sign Out Sign Out Data: Sign Out Comment: 2 weeks urinating blood and intermittent abdominal pain with n/v, pending labs and ct abd/pelvis Last updated by Herberth Gilbert MD at 01/12/23 07:32 Discharge Plan Disposition Patient Disposition: Home Condition: Good Discharge Details Clinical Impression: Nausea & vomiting, Chronic epigastric pain Primary Care Provider: Lavelle Reyna ED Provider: Indra Lozano Home Meds and New Rx's Prescriptions: New sucralfate [Carafate] 1 gram tablet 1 g PO BID Qty: 60 0RF pantoprazole [Protonix] 40 mg tablet,delayed release (DR/EC) 40 mg PO DAILY Qty: 60 0RF famotidine 20 mg tablet 20 mg PO BID Qty: 90 0RF No Action methadone 10 mg tablet 115 mg PO DAILY Rx Instructions: Per patient her dose has increased. amitriptyline 10 mg tablet 20 mg PO QHS Patient Comments: TAKE TWO TABLETS BY MOUTH AT BEDTIME Discharge Instructions Instructions: Ondansetron (By mouth), Acute Nausea and Vomiting (ED) Additional Instructions: At this time your laboratory work-up, and CT scan were reassuring. There is no evidence of acute life-threatening problem noted. I do suspect that your symptoms may be caused by gastric irritation or a gastric ulcer. Please do your best to decrease on caffeinated substances. Please drink plenty of fluids and stay well-hydrated. We have given 3 new medications for treatment of suspected cause of epigastric pain, 2 of these are antiacid medications, and 1 of these are ulcer coating medication. They have been sent to your pharmacy on file. Please take these as directed. Please take the Zofran as needed for nausea. If you notice any worsening of your symptoms, or any new symptoms such as vomiting, diarrhea, fever, chills, shortness of breath, chest pain, numbness, weakness, or fainting , please return immediately to the emergency department for reevaluation. Please follow up with your primary care provider as soon as possible for reassessment and reevaluation. As always, it was a pleasure participating in your medical care today. Referrals: Lavelle Reyna NP [Primary Care Provider] -
[2023-01-12] MEDS: Ondansetron O.D.T. 4 MG TABEF, 3 TABS/BTL PO (10:58)
[2023-01-12 10:59] VITALS: BP 118/85; PULSE 75; RESP 20; O2SAT 98
== END 2023-01-12 10:59 | disposition home or self-care (01) ==
PROVIDERS: Emergency Medicine; Emergency Provider Student in an Organized Health Care Education/Training Program; PCP Nurse Practitioner Family
DX: R11.2 Nausea with vomiting, unspecified (principal); R10.13 Epigastric pain; G89.29 Other chronic pain
CPT/HCPCS: 36415; 80053; 81025; 83690; 96361; 96374; 96375; 99285; 74177; 81003; 81015; 83735; 85025; 99284; J1885; J2405

== ENCOUNTER 2023-06-14 08:40 | Outpatient (CLI) | payer MEDICAID, SELFPAY ==
--- NOTE | 2023-06-14 08:30 | RT.EKG_ITS ---
APPROVED REPORT Exam: Resting ECG Reason for Exam: High Risk Medication Patient Location: O HR:72 bpm ECG Measurements Heart Rate 72 AXIS ID 155 P 32 QRSd 96 QRS 19 QT 424 T 30 QTc 465 Conclusion Sinus rhythm...normal P axis, V-rate 50- 99 Low voltage, precordial leads...precordial leads <1.0mV Otherwise normal ECG
== END 2023-06-14 08:41 | disposition home or self-care (01) ==
PROVIDERS: Visit Provider Family Medicine
DX: Z79.899 Other long term (current) drug therapy (principal)
CPT/HCPCS: 93005; 93010

== ENCOUNTER 2024-06-15 10:24 | Emergency (ER) | payer MEDICAID, SELFPAY ==
[2024-06-15] VITALS (9 sets, daily range): BP systolic 131–151; BP diastolic 86–115; PULSE 59–80; RESP 11–20; TEMP 36.7; O2SAT 88–98
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
--- OUTSIDE RECORDS SUMMARY | 2024-06-15 11:05 | XMS_ITS | Encounter Summary ---
[place] [address] Care Team Providers Care Sales And Merchandising Representative Name Role Phone Humberto Marquis MD Primary Care Provider [phone] Reason for Visit * Reason Comments Procedure OP EEG Encounter Details Date Type Department Care Team (Latest Contact Info) Description 08/16/2013 8:30 AM EST Procedure [place] [address] CLINIC, Humberto Wright MD [address] [place] [address] [place], [place] [id number] Memory changes; Neurobehavioral disorder; Diarrhea; Nausea; Behavior disorder; History of meningococcal meningitis; History of septic shock; Intracerebral hemorrhage; Spells; Abdominal pain Discharge Disposition: Home Social History Tobacco Use Types Packs/Day Years Used Date Smoking Tobacco: Every Day Comments:PARENTS Alcohol Use Standard Drinks/Week Comments No 0 (1 standard drink = 0.6 oz pur e alcohol) Sex and Gender Information Value Date Recorded Sex Assigned at Not on file Gender Identity Not on file Sexual Orientation Not on file documented as of this encounter Patient Instructions * Patient Instructions* Konstantin Harris MD - 08/17/2013 12:53 PM EST [facility] Department of Neurology EEG REPORT Patient: Nimisha Olivo [id number] Date of Recordin08/16/13 Interpreting Physician: Dr. Konstantin Harris (Attending) Dr. Mary Ferguson (Fellow) Reason for study: Nimisha Olivo is a 18 y.o. female with a history of paroxysmal behavioral spells. Current Medications: Current Outpatient Prescriptions on File Prior to Visit Medication Sig Dispense Refill ??? traZODone (DESYREL) 50 mg tablet Take 50 mg by mouth nightly. ??? FLUoxetine (PROZAC) 10 mg capsule Take 20 mg by mouth daily. ??? lisdexamfetamine (VYVANSE) 50 mg capsule Take 50 mg by mouth every morning. ??? polyethylene glycol (MIRALAX) 17 gram packet Take 17 g by mouth daily. ??? ondansetron (ZOFRAN) 8 mg tablet Take 1 tablet by mouth every 8 hours as needed for Nausea. 20 tablet 0 METHODS: A 21 channel digitized electroencephalogram was performed in the [facility] Clinical Neurophysiology Laboratory. The 10/20 international system of electrode placement was used and bipolar and referential electrode montages were recorded. In addition to EEG the patient was monitored for EKGand lateral/vertical eye movements. Activation procedures of photic stimulation and hyperventilation were perfomed if applicable. Video was used during activation procedures and during events where applicable. The duration of the recording was 30 minutes. DESCRIPTION OF EEG: The patient was noted to be awake, drowsy, and asleep during the recording. During maximal wakefulness a 12-Hz posterior background rhythm was present which was well-modulated, symmetrical, reactive to eye opening, and of moderate voltage. With eye opening the background activity changed to a low voltage mixture of alpha, beta, and occasional theta range frequencies. Faster frequencies were present in the bilateral anterior head regions. There was a normal anterior-posteriorvoltage gradient. During drowsiness, there was attenuation of the posterior dominant background rhythm and vertex waves. Stage II sleep was present with symmetrical sleep spindles, K-complexes, and vertex waves. There were a few bursts of sharply-contoured theta and alpha activity that was relatively diffuse but with a voltage maximum over the left frontal head region (F3) that occurred during wakefulness and sleep. These were of unknown significance but were not clearly epileptiform. Noted occurences wereat 8:38:27, 8:41:19, 8:44:48, 8:49:49, 8:53:43, and 8:55:34, among others. Activating Procedures: Photic stimulation was performed which produced no posterior driving response. Hyperventilation was performed with moderate effort and produced no physiological slowing of the background. EKG: EKG revealed normal sinus rhythm. INTERPRETATION: This EEG is borderline abnormal due to the diffuse sharply- contoured theta and alpha activity, with a left frontal voltage predominance described above. PRIOR EEG: none CLINICAL CORRELATION: The above findings were of unknown significance. They were not clearly epileptiform. There were no definite focal regions of cerebral dysfunction or epileptiform activity present. A repeat or longer EEG may help differentiate the above findings if clinically indicated. Clinical correlation is advised. Mary Ferguson MD Neurophysiology Fellow Pager [phone] NEURO ATTENDING EEG NOTE: I attest that I have read the entire EEG record, completely; reviewed it with the Neurology Fellow Dr. Ferguson; directed the composition of the above report; and concur with the documentation. If suspicion for seizure persists, the sensitivity of the test may be increased by obtaining a prolonged sleep recording. Gustabo Harris MD Copy HUMBERTO MARQUIS MD [address] [place], [place] [address] / [facility] [id number] documented in this encounter Progress Notes * Konstantin Harris MD - 08/17/2013 12:53 PM EST [facility] Department of Neurology EEG REPORT Patient: Nimisha Olivo [id number] Date of Recordin08/16/13 Interpreting Physician: Dr. Konstantin Harris (Attending) Dr. Mary Ferguson (Fellow) Reason for study: Nimisha Olivo is a 18 y.o. female with a history of paroxysmal behavioral spells. Current Medications: Current Outpatient Prescriptions on File Prior to Visit Medication Sig Dispense Refill ??? traZODone (DESYREL) 50 mg tablet Take 50 mg by mouth nightly. ??? FLUoxetine (PROZAC) 10 mg capsule Take 20 mg by mouth daily. ??? lisdexamfetamine (VYVANSE) 50 mg capsule Take 50 mg by mouth every morning. ??? polyethylene glycol (MIRALAX) 17 gram packet Take 17 g by mouth daily. ??? ondansetron (ZOFRAN) 8 mg tablet Take 1 tablet by mouth every 8 hours as needed for Nausea. 20 tablet 0 METHODS: A 21 channel digitized electroencephalogram was performed in the [facility] Clinical Neurophysiology Laboratory. The 10/20 international system of electrode placement was used and bipolar and referential electrode montages were recorded. In addition to EEG the patient was monitored for EKG and lateral/vertical eye movements. Activation procedures of photic stimulation and hyperventilation were perfomed if applicable. Video was used during activation procedures and during events where applicable. The duration of the recording was 30 minutes. DESCRIPTION OF EEG: The patient was noted to be awake, drowsy, and asleep during the recording. During maximal wakefulness a 12-Hz posterior background rhythm was present which was well-modulated, symmetrical, reactive to eye opening, and of moderate voltage. With eye opening the background activity changed to a low voltage mixture of alpha, beta, and occasional theta range frequencies. Faster frequencies were present in the bilateral anterior head regions. There was a normal anterior-posteriorvoltage gradient. During drowsiness, there was attenuation of the posterior dominant background rhythm and vertex waves. Stage II sleep was present with symmetrical sleep spindles, K-complexes, and vertex waves. There were a few bursts of sharply-contoured theta and alpha activity that was relatively diffuse but with a voltage maximum over the left frontal head region (F3) that occurred during wakefulness and sleep. These were of unknown significance but were not clearly epileptiform. Noted occurences wereat 8:38:27, 8:41:19, 8:44:48, 8:49:49, 8:53:43, and 8:55:34, among others. Activating Procedures: Photic stimulation was performed which produced no posterior driving response. Hyperventilation was performed with moderate effort and produced no physiological slowing of the background. EKG: EKG revealed normal sinus rhythm. INTERPRETATION: This EEG is borderline abnormal due to the diffuse sharply- contoured theta and alpha activity, with a left frontal voltage predominance described above. PRIOR EEG: none CLINICAL CORRELATION: The above findings were of unknown significance. They were not clearly epileptiform. There were no definite focal regions of cerebral dysfunction or epileptiform activity present. A repeat or longer EEG may help differentiate the above findings if clinically indicated. Clinical correlation is advised. Mary Ferguson MD Neurophysiology Fellow Pager [phone] NEURO ATTENDING EEG NOTE: I attest that I have read the entire EEG record, completely; reviewed it with the Neurology Fellow Dr. Ferguson; directed the composition of the above report; and concur with the documentation. If suspicion for seizure persists, the sensitivity of the test may be increased by obtaining a prolonged sleep recording. Gustabo Harris MD Copy HUMBERTO MARQUIS MD [address] [place] [address] documented in this encounter Procedure Notes * Konstantin Harris MD - 08/16/2013 9:47 AM ESTAssociated Order(s): EEG AWAKE OR ASLEEP Procedure(s): EEG INNC. RECORDING AWAKE AND ASLEEP, W. HYPERVENT/PHOTIC STIMU PRFM Pre-Procedure Diagnose(s): Memory changes; Neurobehavioral disorder; Spells Post-Procedure Diagnose(s): Memory changes; Neurobehavioral disorder; Spells Name:Nimisha Olivo Test #: 13 - 2110 Age: 18 y.o. Referring Provider: Humberto Marquis MD [address] [place] [address] Hours of Sleep: 2 P.C.: 8AM Sleep Deprived: Y Location: OP Date of Study: 08/16/13 Tech: SR Patient History: Behavioral problems. Sleep: Obtained Photic Driving: Y Hyperventillation: Y If Hyperventillated Effort Given: P [facility] Department of Neurology EEG REPORT Patient: Nimisha Olivo [id number] Date of Recordin08/16/13 Interpreting Physician: Dr. Konstantin Harris (Attending) Dr. Mary Ferguson (Fellow) Reason for study: Nimisha Olivo is a 18 y.o. female with a history of paroxysmal behavioral spells. Current Medications: Current Outpatient Prescriptions on File Prior to Visit Medication Sig Dispense Refill ??? traZODone (DESYREL) 50 mg tablet Take 50 mg by mouth nightly. ??? FLUoxetine (PROZAC) 10 mg capsule Take 20 mg by mouth daily. ??? lisdexamfetamine (VYVANSE) 50 mg capsule Take 50 mg by mouth every morning. ??? polyethylene glycol (MIRALAX) 17 gram packet Take 17 g by mouth daily. ??? ondansetron (ZOFRAN) 8 mg tablet Take 1 tablet by mouth every 8 hours as needed for Nausea. 20 tablet 0 METHODS: A 21 channel digitized electroencephalogram was performed in the [facility] Clinical Neurophysiology Laboratory. The 10/20 international system of electrode placement was used and bipolar and referential electrode montages were recorded. In addition to EEG the patient was monitored for EKGand lateral/vertical eye movements. Activation procedures of photic stimulation and hyperventilation were perfomed if applicable. Video was used during activation procedures and during events where applicable. The duration of the recording was 30 minutes. DESCRIPTION OF EEG: The patient was noted to be awake, drowsy, and asleep during the recording. During maximal wakefulness a 12-Hz posterior background rhythm was present which was well-modulated, symmetrical, reactive to eye opening, and of moderate voltage. With eye opening the background activity changed to a low voltage mixture of alpha, beta, and occasional theta range frequencies. Faster frequencies were present in the bilateral anterior head regions. There was a normal anterior-posteriorvoltage gradient. During drowsiness, there was attenuation of the posterior dominant background rhythm and vertex waves. Stage II sleep was present with symmetrical sleep spindles, K-complexes, and vertex waves. There were a few bursts of sharply-contoured theta and alpha activity that was relatively diffuse but with a voltage maximum over the left frontal head region (F3) that occurred during wakefulness and sleep. These were of unknown significance but were not clearly epileptiform. Noted occurences wereat 8:38:27, 8:41:19, 8:44:48, 8:49:49, 8:53:43, and 8:55:34, among others. Activating Procedures: Photic stimulation was performed which produced no posterior driving response. Hyperventilation was performed with moderate effort and produced no physiological slowing of the background. EKG: EKG revealed normal sinus rhythm. INTERPRETATION: This EEG is borderline abnormal due to the diffuse sharply- contoured theta and alpha activity, with a left frontal voltage predominance described above. PRIOR EEG: none CLINICAL CORRELATION: The above findings were of unknown significance. They were not clearly epileptiform. There were no definite focal regions of cerebral dysfunction or epileptiform activity present. A repeat or longer EEG may help differentiate the above findings if clinically indicated. Clinical correlation is advised. Mary Ferguson MD Neurophysiology Fellow Pager [phone] NEURO ATTENDING EEG NOTE: I attest that I have read the entire EEG record, completely; reviewed it with the Neurology Fellow Dr. Ferguson; directed the composition of the above report; and concur with the documentation. If suspicion for seizure persists, the sensitivity of the test may be increased by obtaining a prolonged sleep recording. Gustabo Harris MD Copy MD [address] / [place] [address] documented in this encounter Plan of Treatment Not on file documented as of this encounter Procedures Procedure Name Priority Date/Time Associated Diagnosis Comments EEG INNC. RECORDING AWAKE AND ASLEEP, W. HYPERVENT/PHOTIC STIMU PRFM Routine 08/17/2013 12:55 PM EST Memory changes Neurobehavioral disorder documented in this encounter Results * EEG INNC. RECORDING AWAKE AND ASLEEP, W. HYPERVENT/PHOTIC STIMU PRFM (08/17/2013 12:55 PM EST) Narrative Konstantin Harris MD - 08/17/2013 12:55 PM EST Konstantin Harris MD ? 08/17/2013 12:55 PM Name:Nimisha Olivo ?Test #: ??13 - ?? [id number] ? Age: ??18 y.o. ? Referring Provider: Humberto Marquis MD [address] [place] [address] Hours of Sleep: 2 ??P.C.: 8AM Sleep Deprived: Y ??Location: Date of Study: 08/16/13 ??Tech: SR Patient History: Behavioral problems. Sleep: Obtained Photic Driving: Y Hyperventillation: Y ? If Hyperventillated ??Effort Given: P [facility] Department of Neurology EEG REPORT Patient: ??Nimisha Olivo ??[id number] Date of Recordin08/16/13 Interpreting Physician: Dr. Konstantin Harris (Attending) Dr. Mary Ferguson (Fellow) Reason for study: ??Nimisha Olivo is a 18 y.o. female with a history of paroxysmal behavioral spells. Current Medications: Current Outpatient Prescriptions on File Prior to Visit Medication Sig Dispense Refill ? ? traZODone (DESYREL) 50 mg tablet Take 50 mg by mouth nightly. ? FLUoxetine (PROZAC) 10 mg capsule Take 20 mg by mouth daily. ? lisdexamfetamine (VYVANSE) 50 mg capsule Take 50 mg by mouth every morning. ? polyethylene glycol (MIRALAX) 17 gram packet Take 17 g by mouth daily. ? ondansetron (ZOFRAN) 8 mg tablet Take 1 tablet by mouth every 8 hours as needed for Nausea. ??20 tablet ??0 METHODS: A 21 channel digitized electroencephalogram was performed in the [facility] Clinical Neurophysiology Laboratory. The 10/20 international system of electrode placement was used and bipolar and referential electrode montages were recorded. ??In addition to EEG the patient was monitored for EKG and lateral/vertical eye movements. Activation procedures of photic stimulation and hyperventilation were perfomed if applicable. ?? Video was used during activation procedures and during events where applicable. ??The duration of the recording was 30 minutes. DESCRIPTION OF EEG: ??The patient was noted to be awake, drowsy, and asleep during the recording. ??During maximal wakefulness a 12-Hz posterior background rhythm was present which was well-modulated, symmetrical, reactive to eye opening, and of moderate voltage. With eye opening the background activity changed to a low voltage mixture of alpha, beta, and occasional theta range frequencies. ??Faster frequencies were present in the bilateral anterior head regions. ??There was a normal anterior-posterior voltage gradient. ??During drowsiness, there was attenuation of the posterior dominant background rhythm and vertex waves. ??Stage II sleep was present with symmetrical sleep spindles, K-complexes, and vertex waves. ?? There were a few bursts of sharply-contoured theta and alpha activity that was relatively diffuse but with a voltage maximum over the left frontal head region (F3) that occurred during wakefulness and sleep. ??These were of unknown significance but were not clearly epileptiform. ??Noted occurences were at 8:38:27, 8:41:19, 8:44:48, 8:49:49, 8:53:43, and 8:55:34, among others. Activating Procedures: ?? Photic stimulation was performed which produced no posterior driving response. ??Hyperventilation was performed with moderate effort and produced no physiological slowing of the background. EKG: EKG revealed normal sinus rhythm. INTERPRETATION: ??This EEG is borderline abnormal due to the diffuse sharply-contoured theta and alpha activity, with a left frontal voltage predominance described above. PRIOR EEG: ?? none CLINICAL CORRELATION: The above findings were of unknown significance. ??They were not clearly epileptiform. ??There were no definite focal regions of cerebral dysfunction or epileptiform activity present. ??A repeat or longer EEG may help differentiate the above findings if clinically indicated. ??Clinical correlation is advised. Mary Ferguson MD Neurophysiology Fellow Pager [phone] NEURO ATTENDING EEG NOTE: ?? I attest that I have read the entire EEG record, completely; reviewed it with the Neurology Fellow Dr. Ferguson; directed the composition of the above report; and concur with the documentation. ??If suspicion for seizure persists, the sensitivity of the test may be increased by obtaining a prolonged sleep recording. Gustabo Harris MD Copy MD [address] / [place] [address] Procedure Note Konstantin Harris MD - 08/16/2013 9:47 AM EST Name:Nimisha Olivo Test #: 13 - 2110 Age: 18 y.o. Referring Provider: Humberto Marquis MD [address] [place] [address] Hours of Sleep: 2 P.C.: 8AM Sleep Deprived: Y Location: OP Date of Study: 08/16/13 Tech: SR Patient History: Behavioral problems. Sleep: Obtained Photic Driving: Y Hyperventillation: Y If Hyperventillated Effort Given: P [facility] Department of Neurology EEG REPORT Patient: Nimisha Olivo [id number] Date of Recordin08/16/13 Interpreting Physician: Dr. Konstantin Harris (Attending) Dr. Mary Ferguson (Fellow) Reason for study: Nimisha Olivo is a 18 y.o. female with a history ofparoxysmal behavioral spells. Current Medications: Current Outpatient Prescriptions on File Prior to Visit Medication Sig Dispense Refill ? ? traZODone (DESYREL) 50 mg tablet Take 50 mg by mouth nightly. ? ? FLUoxetine (PROZAC) 10 mg capsule Take 20 mg by mouth daily. ? ? lisdexamfetamine (VYVANSE) 50 mg capsule Take 50 mg by mouth everymorning. ? ? polyethylene glycol (MIRALAX) 17 gram packet Take 17 g by mouth daily. ? ? ondansetron (ZOFRAN) 8 mg tablet Take 1 tablet by mouth every 8 hours asneeded for Nausea. 20 tablet 0 METHODS: A 21 channel digitized electroencephalogram was performed in the [facility] Clinical Neurophysiology Laboratory. The 10/20 internationalsystem of electrode placement was used and bipolar and referentialelectrode montages were recorded. In addition to EEG the patient wasmonitored for EKG and lateral/vertical eye movements. Activationprocedures of photic stimulation and hyperventilation were perfomed ifapplicable. Video was used during activation procedures and during eventswhere applicable. The duration of the recording was 30 minutes. DESCRIPTION OF EEG: The patient was noted to be awake, drowsy, and asleepduring the recording. During maximal wakefulness a 12-Hz posteriorbackground rhythm was present which was well-modulated, symmetrical,reactive to eye opening, and of moderate voltage. With eye opening thebackground activity changed to a low voltage mixture of alpha, beta, andoccasional theta range frequencies. Faster frequencies were present inthe bilateral anterior head regions. There was a normalanterior-posterior voltage gradient. During drowsiness, there wasattenuation of the posterior dominant background rhythm and vertex waves.Stage II sleep was present with symmetrical sleep spindles, K-complexes,and vertex waves. There were a few bursts of sharply-contoured theta and alpha activity thatwas relatively diffuse but with a voltage maximum over the left frontalhead region (F3) that occurred during wakefulness and sleep. These wereof unknown significance but were not clearly epileptiform. Notedoccurences were at 8:38:27, 8:41:19, 8:44:48, 8:49:49, 8:53:43, and8:55:34, among others. Activating Procedures: Photic stimulation was performed which producedno posterior driving response. Hyperventilation was performed withmoderate effort and produced no physiological slowing of the background. EKG: EKG revealed normal sinus rhythm. INTERPRETATION: This EEG is borderline abnormal due to the diffusesharply- contoured theta and alpha activity, with a left frontal voltagepredominance described above. PRIOR EEG: none CLINICAL CORRELATION: The above findings were of unknown significance. They were not clearlyepileptiform. There were no definite focal regions of cerebraldysfunction or epileptiform activity present. A repeat or longer EEG mayhelp differentiate the above findings if clinically indicated. Clinicalcorrelation is advised. Mary Ferguson MD Neurophysiology Fellow Pager [phone] NEURO ATTENDING EEG NOTE: I attest that I have read the entire EEGrecord, completely; reviewed it with the Neurology Fellow Dr. Ferguson;directed the composition of the above report; and concur with thedocumentation. If suspicion for seizure persists, the sensitivity of thetest may be increased by obtaining a prolonged sleep recording. 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 Diarrhea Nausea Nausea alone Behavior disorder Unspecified disturbance of conduct History of meningococcal meningitis Personal history of infections of the central nervous system History of septic shock Personal history of other infectious and parasitic disease Intracerebral hemorrhage Spells Other convulsions Abdominal pain Abdominal pain, unspecified site documented in this encounter Care Teams Sales And Merchandising Representative Relationship Specialty Start Date End Date Humberto Marquis MD [address] [place] [address] PCP - General 08/01/13 02/16/22 documented as of this encounter
--- OUTSIDE RECORDS SUMMARY | 2024-06-15 11:05 | XMS_ITS | Encounter Summary ---
Author Organization [place] [address] Care Team Providers Care Scheduling Manager Name Role Phone Alex Wagoner MD Primary Care Provider [phone] Encounter Details Date Type Department Care Team (Late st Contact Info) Description 01/21/2012 3:15 PM EDT - 01/21/2012 4:15 PM EDT [place] [address] Murali Tinoco MD [facility] DR [place] [address] PEDIATRIC COLONOSCOPY (WRVU 3.26) Social History Tobacco Use Types Packs/Day Years Used Date Smoking Tobacco: Passive Smo ke Exposure - Never Smoker Comments:PARENTS Alcohol Use Standard Drinks/Week Comments No 0 (1 standard drink = 0.6 oz pur e alcohol) Sex and Gender Information Value Date Recorded Sex Assigned at Not on file Gender Identity Not on file Sexual Orientation Not on file documented as of this encounter Last Filed Vital Signs Vital Sign Reading Time Taken Comments Blood Pressure 123/57 01/21/2012 4:35 PM EDT Pulse 65 01/21/2012 4:35 PM EDT Temperature - - Respiratory Rate 16 01/21/2012 4:35 PM EDT Oxygen Saturation 100% 01/21/2012 4:35 PM EDT Inhaled Oxygen Concentration - - Weight - - Height - - Body Mass Index - - documented in this encounter Discharge Instructions * Discharge Instructions* Maribell Turner RN - 01/21/2012 4:54 PM EDT You may have received medication before and/or during your procedure which effects judgement and reaction time. Do not drive, operate machinery,drink alcoholic beverages or make important decisions for 24 hours. Be careful on stairs, as you may be unsteady on your feet. You may eat a regular diet as tolerated. Do not smoke if you are alone. IV site-- slight redness or tenderness is normal. You may use a warm compress. If tenderness and redness increase or foul drainage occur please notify your MD. Please call [phone] before 5pm with problems, questions or concerns. After 5 pm call [phone] and ask to speak with the GI fellow environmental laboratory technician. Discharge instructions reviewed with patient who expresses understanding. * Attachments The following attachments cannot be sent through Care Everywhere. * ABDOMINAL PAIN: AFTER YOUR CHILD'S VISIT (SOMALI) * COLONOSCOPY IN CHILDREN: WHAT TO EXPECT AT HOME (SOMALI) * UPPER GI ENDOSCOPY IN CHILDREN: WHAT TO EXPECT AT HOME (SOMALI) documented in this encounter Medications at Time of Discharge Medication Sig Dispensed Refills Start Date End Date FLUoxetine (PROZAC) 10 mg capsule Take 20 mg by mouth daily. lisdexamfetamine (VYVANSE) 50 mg capsule Take 50 mg by mouth every morning. polyethylene glycol (MIRALAX) 17 gram packet Take 17 g by mouth daily. ondansetron (ZOFRAN) 8 mg tabletIndications:Nausea Take 1 tablet by mouth every 8 hours as needed for Nausea. 20 tablet 0 01/01/2012 QUEtiapine (SEROQUEL) 100 mg tablet Take 100 mg by mouth 2 times daily. 08/03/2013 documented as of this encounter H&P Notes * Murali Tinoco MD - 01/21/2012 3:15 PM EDT Patient Name: Shilo Jon Patient Age: 16 y.o. Birthdate: 1995 No change in Hx, PE, ROS since visit. Consent signed form signed. Brendan Tinoco MD documented in this encounter Miscellaneous Notes * Miscellaneous - Provider, Scanning - 01/22/2012 4:58 AM EDT * Miscellaneous - Provider, Scanning - 01/22/2012 4:54 AM EDT * Miscellaneous - Provider, Scanning - 01/22/2012 4:51 AM EDT * OR Attestation - Murali Tinoco MD - 01/21/2012 4:26 PM EDT Attestation: Case Date: 01/21/2012 I was the attending physician and I performed the entire procedure. MURALI TINOCO MD 01/21/2012 * Op Note - Murali Tinoco MD - 01/21/2012 4:25 PM EDT Please see full endoscopy op note as documented in Provation report * Miscellaneous - Provider, Scanning - 01/21/2012 3:25 PM EDT documented in this encounter Plan of Treatment Not on file documented as of this encounter Procedures Procedure Name Priority Date/Time Associated Diagnosis Comments SURGICAL PATHOLOGY REPORT Routine 01/21/2012 6:20 PM EDT SPECIMEN TO PATHOLOGY Routine 01/21/2012 3:43 PM EDT SPECIMEN TO PATHOLOGY Routine 01/21/2012 3:43 PM EDT SPECIMEN TO PATHOLOGY Routine 01/21/2012 3:43 PM EDT SPECIMEN TO PATHOLOGY Routine 01/21/2012 3:43 PM EDT SPECIMEN TO PATHOLOGY Routine 01/21/2012 3:43 PM EDT SPECIMEN TO PATHOLOGY Routine 01/21/2012 3:43 PM EDT SPECIMEN TO PATHOLOGY Routine 01/21/2012 3:43 PM EDT SPECIMEN TO PATHOLOGY Routine 01/21/2012 3:43 PM EDT DISACCHARIDASE PANEL, BIOPSY Routine 01/21/2012 3:30 PM EDT PEDIATRIC UPPER GI ENDOSCOPY 01/21/2012 3:24 PM EDT Abdominal pain PEDIATRIC COLONOSCOPY (WRVU 3.26) 01/21/2012 3:24 PM EDT Abdominal pain PEDIATRIC UPPER GI ENDOSCOPY Routine 01/21/2012 3:14 PM EDT PEDIATRIC COLONOSCOPY Routine 01/21/2012 3:13 PM EDT documented in this encounter Results * SURGICAL PATHOLOGY REPORT (01/21/2012 6:20 PM EDT) Surgical Pathology Report ? [facility] ? Provider: ?? EARNEST, ? Pt. Name: ?? SHILO JON ?MURALI P ? Acc #: ?[id number] ?Pt. ? Col Date: ?? 01/21/2012 ? /Sex: ?1995,(16 years),Female ? Rec Date: ?? 01/21/2012 ? LOC: ?4T ? SURGICAL PATHOLOGY ? ---Pathologic Diagnosis--- ? A - Terminal ileum; endoscopic biopsies: ? Ileal mucosa within normal limits. ? B - Cecum/ascending colon; endoscopic biopsies: ? Colonic mucosa within normal limits. ? C - Transverse/desc ending colon; endoscopic biopsies: ? Colonic mucosa within normal limits. ? D - Sigmoid colon; endoscopic biopsies: ? Colonic mucosa within normal limits. ? E - Duodenum; endoscopic biopsies: ? Duodenal mucosa within normal limits. ? F - Stomach; endoscopic biopsies: ? Gastric antral mucosa within normal limits. ? G - Distal esophagus; endoscopic biopsies: ? Esophageal squamous mucosa within normal limits. ? H - Proximal esophagus; endoscopic biopsies: ? Esophageal squamous mucosa with minimal non-specific esophagitis. ? CR-0 ? 01/25/12 ? KO ? 01/25/12 Verified by: ? Tatiana Tavares MD ? Pathologist ? (Electronic Signature) ? The attending pathologist whose signature appears on this report has ? reviewed all diagnostic slides and has edited the gross and/or ? microscopic portion of the report in rendering the final pathologic ? diagnosis. ? ---Microscopic Description--- ? Slides reviewed, microscopic description not recorded. ? [facility] ? Provider: ?? EARNEST, ? Pt. Name: ?? SHILO JON ?MURALI P ? Acc #: ?[id number] ?Pt. ? Col Date: ?? 01/21/2012 ? /Sex: ?1995,(16 years),Female ? Rec Date: ?? 01/21/2012 ? LOC: ?4T ? ---Gross Description--- ? A - Labeled/Fixativ e: Terminal ileum, formalin. ? SURGICAL PATHOLOGY ? Qty/Size/Weight : ?Three, ranging from 0.3 cm to 0.4 cm in ? greatest dimension. ? Tissue Description: ?? Soft, agee tissues. ? Sections/Proces sing: ??(T1) ? B - Labeled/Fixativ e: Cecum/ascending , formalin. ? Qty/Size/Weight : ?Four, ranging from 0.2 cm to 0.3 cm in ? greatest dimension. ? Tissue Description: ?? Soft, agee tissues. ? Sections/Proces sing: ??(T1) ? C - Labeled/Fixativ e: Transverse/desc ending, formalin. ? Qty/Size/Weight : ?Five, ranging from 0.3 cm to 0.5 cm in ? greatest dimension. ? Tissue Description: ?? Soft, agee tissues. ? Sections/Proces sing: ??(T1) ? D - Labeled/Fixativ e: Sigmoid/rectum, formalin. ? Qty/Size/Weight : ?Four, ranging from 0.2 cm to 0.3 cm in ? greatest dimension. ? Tissue Description: ?? Soft, agee tissues. ? Sections/Proces sing: ??(T1) ? E - Labeled/Fixativ e: Duodenum including bulb, formalin. ? Qty/Size/Weight : ?Four, ranging from 0.2 cm to 0.4 cm in ? greatest dimension. ? Tissue Description: ?? Soft, agee tissues. ? Sections/Proces sing: ??(T1) ? F - Labeled/Fixativ e: Antrum of stomach, formalin. ? Qty/Size/Weight : ?Single, 0.3 x 0.3 x 0.1 cm. ? Tissue Description: ?? Soft, agee tissue. ? Sections/Proces sing: ??(T1) ? G - Labeled/Fixativ e: Distal esophagus, formalin. ? Qty/Size/Weight : ?Four, ranging from 0.1 cm to 0.3 cm in ? greatest dimension. ? Tissue Description: ?? Soft, agee tissues. ? Sections/Proces sing: ??(T1) ? H - Labeled/Fixativ e: Proximal esophagus, formalin. ? [facility] ? Provider: ?? EARNEST, ? Pt. Name: ?? SHILO JON ?MURALI Moss ? Acc #: ?[id number] ?Pt. ? Col Date: ?? 01/21/2012 ? /Sex: ?1995,(16 years),Female ? Rec Date: ?? 01/21/2012 ? LOC: ?4T ? Qty/Size/Weight : ?Four, ranging from 0.2 cm to 0.3 cm in ? greatest dimension. ? Tissue Description: ?? Soft, agee tissues. ? SURGICAL PATHOLOGY ? Sections/Proces sing: ??(T1) ??vms/CJL ? ---Clinical Information--- ? Specimen Submitted: ? A - Terminal ileum ? B - Cecum/ascending ? C - Transverse/desc ending ? D - Sigmoid/rectum ? E - Duodenum including bulb ? F - Antrum of stomach ? G - Distal esophagus ? H - Proximal esophagus ? Clinical History/Diagnos is: ? 16 YO vomiting, diarrhea, persistent, abdominal pain CERNER MILLENNIUM 01/21/2012 6:20 PM EDT Murali Tinoco MD PATHOLOGY/CYTOL OGY ORDERABLES Performing Organization Address [facility] Co de Phone Number [facility] KAELABAN[facility]IUM * Specimen to Pathology (surgical or derm) (01/21/2012 3:43 PM EDT) AP Specimen 01/21/2012 3:43 PM EDT 01/21/2012 3:43 PM EDT Narrative CERNER MILLENNIUM - 01/21/2012 3:43 PM EDT Specimen requisition ordered. ??Separate Pathology report to follow Murali Tinoco MD PATHOLOGY/CYTOL [place]ACK[place]Y ORDERABLES Performing Organization Address [facility] Co de Phone Number [facility] K[facility]EL[facility] * Specimen to Pathology (surgical or derm) (01/21/2012 3:43 PM EDT) AP Specimen 01/21/2012 3:43 PM EDT 01/21/2012 3:43 PM EDT Narrative ERNESTINA CARRIONIUM - 01/21/2012 3:43 PM EDT Specimen requisition ordered. ??Separate Pathology report to follow Murali Tinoco MD PATHOLOGY/CYTOL OGY ORDERABLES Performing Organization Address [facility] Co de Phone Number ERNESTINA SAAVEDRA * Specimen to Pathology (surgical or derm) (01/21/2012 3:43 PM EDT) AP Specimen 01/21/2012 3:43 PM EDT 01/21/2012 3:43 PM EDT Narrative ERNESTINA CARRIONIUM - 01/21/2012 3:43 PM EDT Specimen requisition ordered. ??Separate Pathology report to follow Murali Tinoco MD PATHOLOGY/CYTOL OGY ORDERABLES Performing Organization Address [facility] de Phone Number ERNESTINA SAAVEDRA * Specimen to Pathology (surgical or derm) (01/21/2012 3:43 PM EDT) AP Specimen 01/21/2012 3:43 PM EDT 01/21/2012 3:43 PM EDT Narrative ERNESTINA CARRIONIUM - 01/21/2012 3:43 PM EDT Specimen requisition ordered. ??Separate Pathology report to follow Murali Tinoco MD PATHOLOGY/CYTOL OGY ORDERABLES Performing Organization Address [facility] Co de Phone Number ERNESTINA SAAVEDRA * Specimen to Pathology (surgical or derm) (01/21/2012 3:43 PM EDT) AP Specimen 01/21/2012 3:43 PM EDT 01/21/2012 3:43 PM EDT Narrative ERNESTINA CARRIONIUM - 01/21/2012 3:43 PM EDT Specimen requisition ordered. ??Separate Pathology report to follow Murali Tinoco MD PATHOLOGY/CYTOL OGY ORDERABLES Performing Organization Address [facility] Co de Phone Number ERNESTINA SAAVEDRA * Specimen to Pathology (surgical or derm) (01/21/2012 3:43 PM EDT) AP Specimen 01/21/2012 3:43 PM EDT 01/21/2012 3:43 PM EDT Narrative ERNESTINA SAAVEDRA - 01/21/2012 3:43 PM EDT Specimen requisition ordered. ??Separate Pathology report to follow Murali Tinoco MD PATHOLOGY/CYTOL OGY ORDERABLES Performing Organization Address [facility] de Phone Number ERNESTINA SAAVEDRA * Specimen to Pathology (surgical or derm) (01/21/2012 3:43 PM EDT) AP Specimen 01/21/2012 3:43 PM EDT 01/21/2012 3:43 PM EDT Narrative ERNESTINA SAAVEDRA - 01/21/2012 3:43 PM EDT Specimen requisition ordered. ??Separate Pathology report to follow Murali Tinoco MD PATHOLOGY/CYTOL OGY ORDERABLES Performing Organization Address [facility] de Phone Number ERNESTINA SAAVEDRA * Specimen to Pathology (surgical or derm) (01/21/2012 3:43 PM EDT) AP Specimen 01/21/2012 3:43 PM EDT 01/21/2012 3:43 PM EDT Narrative ERNESTINA SAAVEDRA - 01/21/2012 3:43 PM EDT Specimen requisition ordered. ??Separate Pathology report to follow Murali Tinoco MD PATHOLOGY/CYTOL OGY ORDERABLES Performing Organization Address [facility] de Phone Number ERNESTINA SAAVEDRA * Disaccharidase Panel, Biopsy (01/21/2012 3:30 PM EDT) Disaccharidase Biopsy (UMD) See Note [facility] Comment: Disaccharidase Panel and Glucoamylase ? Patient Values ?Normal Values ?? Borderline ?mcmol/g/min ? mcmol/g/min ?(3-10 %tile) ?mcmol/g/min Lactase ? 1.83 ?>6.6 ?5.4-6.6 Maltase ?61.95 ?>40.2 ? 14.3-40.2 Sucrase ?15.72 ?>11.3 ? 7-11.3 Palatinase ?2.21 ?>2.9 ?2.1-2.9 Glucoamylase ? 38.49 ?>25 ? 15.7-25 Sample size: 3.2 mg Interpretation: Lactase activity is <3rd percentile.This is a pathologic value.Palatinase activity is in the 3-10 percentiles.This is considered a borderline value.The other measured enzyme activities are within the normal ranges. Test performed by [facility], [address] [place] [address] Specimen from unspecified body site obtained by biopsy (specimen) 01/21/2012 3:30 PM EDT 01/21/2012 4:26 PM EDT Narrative Resulting Agency Comment Spec In Lab Murali Tinoco MD LAB SEND OUT OR DERABLES CERNER MILLENNIUM * PEDIATRIC UPPER GI ENDOSCOPY (01/21/2012 3:14 PM EDT) Pediatric Upper Gi Endo [facility] Endoscopy Patient Name: Shilo Jon ? Procedure Date: 01/21/2012 3:14 PM ? Date of : 1995 ? Age: 16 ? Order #: [id number] ? Procedure: ? Pediatric Upper GI Endoscopy Indications: ? persistent abdominal pain, vomiting, ? and diarrhea Providers: ? Murali Tinoco MD, Marvin Hill ? , RN, Ana Maritnes, Band Instrument Repairer Referring MD: ?Alex Wagoner MD Medicines: ? Sedation Required Anesthesia Staff ? Assistance due to patient's age Complications: ? No immediate complications. Procedure: ? After obtaining informed consent, the ? endoscope was passed under direct ? vision. Throughout the procedure, the ? patient's blood pressure, pulse, and ? oxygen saturations were monitored ? continuously. The Endoscope was ? introduced through the and advanced ? to the 3rd part of the duodenum. ? Findings: ? Normal appearing esophagus, stomach, and duodenum. ? Biopsies obtained for histology and disaccharidases . ? Impression: ?- Normal examination. Recommendation: ?- Await pathology results. ? - Discharge the patient to home with ? parent(s). ? Murali Tinoco MD 01/21/2012 4:06 PM Number of Addenda: 0 Note Initiated On: 01/21/2012 3:14 PM PROVATION 01/21/2012 3:14 PM EDT Alex Wagoner MD GENERAL SURGICAL ORD ERABLES PROVATION * PEDIATRIC COLONOSCOPY (01/21/2012 3:13 PM EDT) Pediatric Colonoscopy [facility] Endoscopy Patient Name: Shilo Jon ? Procedure Date: 01/21/2012 3:13 PM ? Date of : 1995 ? Age: 16 ? Order #: [id number] ? Procedure: ? Pediatric Colonoscopy Indications: ? persistent abdominal pain, vomiting, ? and diarrhea. Providers: ? Murali Tinoco MD, Marvin Hill ? , NIKIA, Ana Martines, Band Instrument Repairer Referring MD: ?Alex Wagoner MD Medicines: ? Sedation Required Anesthesia Staff ? Assistance due to patient's age Complications: ? No immediate complications. Procedure: ? After I obtained informed consent, ? the scope was passed under direct ? vision. Throughout the procedure, the ? patient's blood pressure, pulse, and ? oxygen saturations were monitored ? continuously. The Colonoscope was ? introduced through the anus and ? advanced to the terminal ileum. ? Findings: ? Normal appearing colon and terminal ileum. ? Biopsies obtained for histology. ? Impression: ?Normal appearing colon and terminal ? ileum. Recommendation: ?- Await pathology results. ? - Discharge the patient to home with ? parent(s). ? Murali Tinoco MD 01/21/2012 4:16 PM Number of Addenda: 0 Note Initiated On: 01/21/2012 3:13 PM PROVATION 01/21/2012 3:13 PM EDT Alex Wagoner MD GENERAL SURGICAL ORD ERABLES PROVATION documented in this encounter Visit Diagnoses Diagnosis Abdominal pain Abdominal pain, unspecified site documented in this encounter Administered Medications Inactive Administered Medications - up to 3 most recent administrations Medication Order MAR Action Action Date Dose Rate Site lactated ringers infusion 100 mL/hr, Intravenous, CONTINUOUS, Starting on Lynne 01/21/12 at 1545, Until Lynne 01/21/12 at 2048, Endoscopy (Day of Procedure) New Bag 01/21/2012 3:21 PM EDT 100 mL/hr 100 mL/hr documented in this encounter Active and Recently Administered Medications Times are shown in EDT. Continuous Medication Order 01/19/2012 01/20/2012 01/21/2012 lactated ringers infusion (CANCELED) 100 mL/hr, Intravenous, CONTINUOUS, Starting on Lynne 01/21/12 at 1545, Until Lynne 01/21/12 at 2048, Endoscopy (Day of Procedure) 1521 (New Bag - Prov ider: Sarah Mccormick RN) documented in this encounter Care Teams Scheduling Manager Relationship Specialty Start Date End Date Alex Wagoner MD [address] [place] [address] PCP - General 01/01/12 07/31/13 documented as of this encounter
--- OUTSIDE RECORDS SUMMARY | 2024-06-15 11:05 | XMS_ITS | Encounter Summary ---
[place] [address] Care Team Providers Care Burn Out Scarfing Operator Name Role Phone Alex Wagoner MD Primary Care Provider [phone] Reason for Visit * Reason Comments Follow-up Accompanied by mom ( Gabi). Encounter Details Date Type Department Care Team (Latest Contact Info) Description 01/06/2012 11:30 AM EDT Follow-Up [place] [address] Raine Jeffries MD [facility] [address] [place] [address] Abdominal pain (Primary Dx); Early satiety; Nausea; Vomiting Discharge Disposition: Home Social History Tobacco Use Types Packs/Day Years Used Date Smoking Tobacco: Passive Smo ke Exposure - Never Smoker Comments:PARENTS Sex and Gender Information Value Date Recorded Sex Assigned at Not on file Gender Identity Not on file Sexual Orientation Not on file documented as of this encounter Last Filed Vital Signs Vital Sign Reading Time Taken Comments Blood Pressure 102/60 01/06/2012 11:38 AM EDT Pulse 70 01/06/2012 11:38 AM EDT Temperature - - Respiratory Rate - - Oxygen Saturation - - Inhaled Oxygen Concentration - - Weight 95.4 kg (210 lb 6.4 oz) 01/06/20 12 11:38 AM EDT Height 152.4 cm (5') 01/06/2012 11:38 AM EDT Body Mass Index 41.09 01/06/2012 11:38 AM EDT Body Mass Index Percentile 99.87% 01/05 11:38 AM EDT Growth Chart: [facility] [place] (Girls, 2- 20 Years) documented in this encounter Patient Instructions * Patient Instructions* Shantell Singh, RN - 01/06/2012 12:18 PM EDT Please stop Miralax Gastric emptying scan EGD/colo Mom will call school to discuss plan for catch up. Bowel Preparation Using One-Day Miralax Children>45kg or >6 years old You have talked with your doctor and nurse about your child needing a colonoscopy. The bowel must be free of stool so that the doctor can see the lining of the colon. To make the bowel free of stool,your child will: Be on a clear liquid diet the entire day before the colonoscopy Drink a medication called Miralax The clear liquid diet will decrease the amount of stool passing through the colon, make the stool easier to pass and keep your child from getting dehydrated. The Miralax will make your child's stool very runny and will help flush the stool from the colon. You can buy the Miralax without a prescription at your local pharmacy. You will need to buy the large bottle (238 grams). The Day Before the the Colonoscopy: Your child will be on a strict clear liquid diet all day. This means no solid food, gym, candy or dairy products. It is very important to keep your child drinking clear liquids throughout the day to keep hydrated and to help the prep work well. Some examples of clear liquids are: Jello Gatorade Clear broth or bouillon soups Soda Sports Drinks Pedialyte Clear juice Water Tea Popsicles Fruit Ices Please do not give any RED liquids. Please start clear liquids at breakfast on the day before the procedure. Your child will be allowed to have clear liquids until four hours before the scheduled colonoscopy time. Giving the Miralax: Mix 8 capfuls of Miralax powder with 32 oz of clear liquid (preferably Gatorade). Your child will need to drink the entire 32 oz over a one hour period (one cup, 8 oz every 15 minutes until gone). Please begin around 9 am the day before the procedure. If your child takes longer than one hour to drink this medicine, it may not work properly to clean out the bowel. After a four hour period please repeat, 8 capfuls of Miralax powder in 32 oz of fluid. Please encourage your child to drink more clear liquids after the medication is finished to promote clear stools. The last bowel movement should look like pale iced tea color. There should be no solid stool and you should be able to see the bottom of the toilet bowl. Even if your child is having diarrhea and the stool appears clear, continue the Miralax until it is gone. Please call if the stool is not clearing or if your child vomits the medication. Your child's procedure is scheduled for . [facility] will contact you the evening before the procedure between 3 pm-6 pm with detailed instructions including a time in which you need to arrive. Same Day Surgery is located on the 4th floor and we suggest parking in the parking garage. If your child becomes ill with a fever, cold, or flu symptoms within 7 days of the procedure, please call the numbers below and speak to the GI nurse. The procedure may need to be rescheduled to allow your child time to recover before anesthesia is given. If you have any questions or concerns, please call the following numbers: Wednesday-Wednesday 8:00am-5:00pm: Office [phone], or nurse [phone]. After hours or on weekends: [phone] and ask for the Pediatric Water Pollution Specialist underground mining section foreman. documented in this encounter Progress Notes * Raine Jeffries MD - 01/06/2012 12:17 PM EDT 01/06/12 Nimisha Olivo is a 16 y.o. 6 m.o. female who is seen for a follow-up of abdominal pain, vomiting,nausea at the [facility]. She was last seen on 01/01/12.She is accompanied by her mother. HPI Since her last visit, Nimisha states she is not feeling better. Did perform Miralax cleanout, with good results. However, now with daily BM, and pain, nausea, vomiting not improved. She states continues with poor appetite, following bland diet. Has not lost weight. Describes early satiety, nausea, then NBNB vomiting. Still has not returned to school. Mother not farther in obtaining makeup school work. When takes Zofran, does feel makes a bit better. No nocturnal symptoms. Has continued with Miralax 17gm daily. No diarrhea presently. Pain not improved, but still most often RLQ. No fever. No rash. Review of Systems Except as detailed above, remainder of the 14 point review of systems negative. Medications Current outpatient prescriptions Medication Sig Dispense Refill ??? FLUoxetine (PROZAC) 10 mg capsule Take 20 mg by mouth daily. ??? lisdexamfetamine (VYVANSE) 50 mg capsule Take 50 mg by mouth every morning. ??? QUEtiapine (SEROQUEL) 100 mg tablet Take 100 mg by mouth 2 times daily. ??? polyethylene glycol (MIRALAX) 17 gram packet Take 17 g by mouth daily. ??? ondansetron (ZOFRAN) 8 mg tablet Take 1 tablet by mouth every 8 hours as needed for Nausea. 20 tablet 0 Allergies Review of patient's allergies indicates no known allergies. History I have reviewed past medical, surgical, social and family history, medications and allergies as documented in the patient's electronic medical record. Exam Blood pressure 102/60, pulse 70, height 152.4 cm (5'), weight 95.437 kg (210 lb 6.4 oz). (previous weight 01/01/12 94.7kg) 99.13% of growth percentile based on vfldkn-tsv-hmw. 8.45% of growth percentile based on ondhhvz-njn-mgf. Body mass index is 41.09 kg/(m^2). 99.46% of growth percentile based on BMI-for-age. General:alert, obese, flat affect in no acute distress CV: RRR S1S2 no murmur Resp: BBS clear Abdomen:obese, ND, mild TTP diffuse no rebound, no guarding, normactive BS Assessment/Plan Nimisha is a 16 y.o. 6 m.o. female with abdominal pain, nausea, vomiting, early satiety. Will stop Miralax at this time. Mother agrees to contact school to address catch-up for missed coursework. Discussed could still be slowly resolving viral process. Given history of early satiety, will ordergastric emptying scan for possible gastroparesis. If symptoms do not improve, and GES normal will consider further evaluation with EGD, colonoscopy. Parent expresses comfort and understanding of plan. This was a 25 minute counseling dominated visit with 20 minutes time spent in discussion of above medical concerns. Copy sent to: Yaw Becerra MD documented in this encounter Plan of Treatment Not on file documented as of this encounter Procedures Procedure Name Priority Date/Time Associated Diagnosis Comments PEDIATRIC UPPER GI ENDOSCOPY Routine 01/06/2012 12:27 PM EDT Abdominal pain PEDIATRIC COLONOSCOPY Routine 01/06/2012 12:27 PM EDT Abdominal pain documented in this encounter Results * NM gastric emptying scan (01/12/2012 2:00 PM EDT) Anatomical Region Laterality Modality Other 01/12/2012 2:00 PM EDT Impressions 01/12/2012 5:12 PM EDT IMPRESSION: ?? Normal gastric emptying. ?? Narrative 01/12/2012 5:12 PM EDT GASTRIC EMPTYING STUDY, 01/12/12: ?? CLINICAL HISTORY: ??16-year-old with vomiting, early satiety. ??Evaluate gastric emptying. ?? PROCEDURE: ??Following oral administration of a standard meal labeled with 0.7 mCi 99m-technetium sulfur colloid, anterior and posterior projection images of the abdomen were obtained immediately and at one hour, two hours, and at four hours post ingestion. ?? FINDINGS: At two hours post ingestion, 24% of the initial activity is remaining in the stomach (normal is less than 60%). ??At four hours, 1% of the initial activity is remaining in the stomach (normal is less than 10%). ?? Procedure Note Marcos Cheng MD - 01/12/2012 GASTRIC EMPTYING STUDY, 01/12/12: CLINICAL HISTORY: 16-year-old with vomiting, early satiety. Evaluategastric emptying. PROCEDURE: Following oral administration of a standard meal labeled with0.7 mCi 99m-technetium sulfur colloid, anterior and posterior projectionimages of the abdomen were obtained immediately and at one hour, two hours, and atfour hours post ingestion. FINDINGS: At two hours post ingestion, 24% of the initial activity isremaining in the stomach (normal is less than 60%). At four hours, 1% of theinitial activity is remaining in the stomach (normal is less than 10%). IMPRESSION IMPRESSION: Normal gastric emptying. Raine Jeffries MD IMG NM ORDERABL ES documented in this encounter Visit Diagnoses Diagnosis Abdominal pain- Primary Abdominal pain, unspecified site Early satiety Nausea Nausea alone Vomiting Vomiting alone Abdominal pain Abdominal pain, unspecified site documented in this encounter Care Teams Burn Out Scarfing Operator Relationship Specialty Start Date End Date Alex Wagoner MD [address] [place] [address] PCP - General 01/01/12 07/31/13 documented as of this encounter
--- OUTSIDE RECORDS SUMMARY | 2024-06-15 11:05 | XMS_ITS | Encounter Summary ---
[place] [address] Care Team Providers Care Credit Union Examiner Name Role Phone Alex Wagoner MD Primary Care Provider [phone] Encounter Details Date Type Department Care Team (Latest Contact Info) Description 01/21/2012 2:31 PM EDT - 01/21/2012 5:30 PM EDT Hospital [place] [address] Murali Tinoco MD [facility] PEDIATRIC [place] [address] Discharge Disposition: Home Social History Tobacco Use [...] occur please notify your MD. Please call [phone] before 5pm with problems, questions or concerns. After 5 pm call [phone] and ask to speak with the GI fellow production administrative assistant. Discharge instructions reviewed with patient who expresses understanding. * Attachments The following attachments cannot be sent through Care Everywhere. * ABDOMINAL PAIN: AFTER YOUR CHILD'S VISIT (GUAMANIAN) * COLONOSCOPY IN CHILDREN: WHAT TO EXPECT AT HOME (GUAMANIAN) * UPPER GI ENDOSCOPY IN CHILDREN: WHAT TO EXPECT AT HOME (GUAMANIAN) documented in this encounter Medications at Time [...] 6:20 PM EDT) Surgical Pathology Report ? [facility] ? Provider: ?? EARNEST, ? Pt. Name: ?? CECELIATOMYSHILO ?MURALI P ? Acc #: ?[id number] ?Pt. ? Col Date: ?? 01/21/2012 ? [...] Slides reviewed, microscopic description not recorded. ? [facility] ? Provider: ?? EARNEST, ? Pt. Name: ?? SHILO JON ?MURALI P ? Acc #: ?[id number] ?Pt. ? Col Date: ?? 01/21/2012 ? [...] - Labeled/Fixativ e: Proximal esophagus, formalin. ? [facility] ? Provider: ?? EARNEST, ? Pt. Name: ?? SHILO JON ?MURALI P ? Acc #: ?[id number] ?Pt. ? Col Date: ?? 01/21/2012 ? [...] YO vomiting, diarrhea, persistent, abdominal pain [facility] 01/21/2012 6:20 PM EDT Murali Tinoco MD PATHOLOGY/CYTOL OGY ORDERABLES Performing Organization Address [facility] Co de Phone Number [facility] * Specimen to Pathology (surgical or derm) (01/21/2012 3:43 PM EDT) AP Specimen 01/21/2012 3:43 PM EDT 01/21/2012 3:43 PM EDT Narrative CERNER MILLENNIUM - 01/21/2012 3:43 PM EDT Specimen requisition ordered. ??Separate Pathology report to follow Murali Tinoco MD PATHOLOGY/CYTOL OGY ORDERABLES Performing Organization Address [facility] Co de Phone Number [facility] * Specimen to Pathology (surgical or derm) (01/21/2012 3:43 PM EDT) AP Specimen 01/21/2012 3:43 PM EDT 01/21/2012 3:43 PM EDT Narrative NICHOLNER SHEYLAIUM - 01/21/2012 3:43 PM EDT Specimen requisition ordered. ??Separate Pathology report to follow Murali Tinoco MD PATHOLOGY/CYTOL OGY ORDERABLES Performing Organization Address [facility] Co de Phone Number ERNESTINA SAAV[facility] * Specimen to Pathology (surgical or derm) (01/21/2012 3:43 PM EDT) AP Specimen 01/21/2012 3:43 PM EDT 01/21/2012 3:43 PM EDT Narrative ERNESTINA CARRIONIUM - 01/21/2012 3:43 PM EDT Specimen requisition ordered. ??Separate Pathology report to follow Murali Tinoco MD PATHOLOGY/CYTOL OGY ORDERABLES Performing Organization Address [facility] de Phone Number ERNESTINA S[facility] * Specimen to Pathology (surgical or derm) (01/21/2012 3:43 PM EDT) AP Specimen 01/21/2012 3:43 PM EDT 01/21/2012 3:43 PM EDT Narrative ERNESTINA CARRIONIUM - 01/21/2012 3:43 PM EDT Specimen requisition ordered. ??Separate Pathology report to follow Murali Tinoco MD PATHOLOGY/CYTOL OGY ORDERABLES Performing Organization Address [facility] Co de Phone Number ERNESTINA SAAVED[facility] * Specimen to Pathology (surgical or derm) (01/21/2012 3:43 PM EDT) AP Specimen 01/21/2012 3:43 PM EDT 01/21/2012 3:43 PM EDT Narrative ERNESTINA CARRIONIUM - 01/21/2012 3:43 PM EDT Specimen requisition ordered. ??Separate Pathology report to follow Murali Tinoco MD PATHOLOGY/CYTOL OGY ORDERABLES Performing Organization Address [facility] Co de Phone Number ERNESTINA SAAVEDRA * Specimen to Pathology (surgical or derm) (01/21/2012 3:43 PM EDT) AP Specimen 01/21/2012 3:43 PM EDT 01/21/2012 3:43 PM EDT Narrative ERNESTINA SAAVEDRA - 01/21/2012 3:43 PM EDT Specimen requisition ordered. ??Separate Pathology report to follow Murali Tinoco MD PATHOLOGY/CYTOL OGY ORDERABLES Performing Organization Address [facility] de Phone Number ERNESTINA SAAVED[facility] * Specimen to Pathology (surgical or derm) (01/21/2012 3:43 PM EDT) AP Specimen 01/21/2012 3:43 PM EDT 01/21/2012 3:43 PM EDT Narrative ERNESTINA SAAVEDRA - 01/21/2012 3:43 PM EDT Specimen requisition ordered. ??Separate Pathology report to follow Murali Tinoco MD PATHOLOGY/CYTOL OGY ORDERABLES Performing Organization Address [facility] de Phone Number ERNESTINA SAAVEDRA * Specimen to Pathology (surgical or derm) (01/21/2012 3:43 PM EDT) AP Specimen 01/21/2012 3:43 PM EDT 01/21/2012 3:43 PM EDT Narrative ERNESTINA SAAVEDRA - 01/21/2012 3:43 PM EDT Specimen requisition ordered. ??Separate Pathology report to follow Murali Tinoco MD PATHOLOGY/CYTOL OGY ORDERABLES Performing Organization Address [facility] de Phone Number ERNESTINA SAAV[facility] * Disaccharidase Panel, Biopsy (01/21/2012 3:30 PM EDT) Disaccharidase Biopsy (UMD) See Note ERNESTINA SAAVEDRA Comment: Disaccharidase Panel and Glucoamylase ? Patient [...] ranges. Test performed by [facility], [address] [place] [address] Specimen from unspecified body site obtained by biopsy (specimen) 01/21/2012 3:30 PM EDT 01/21/2012 4:26 PM EDT Narrative Resulting Agency Comment Spec In Lab Murali Tinoco MD LAB SEND OUT OR DERABLES Performing Organization Address City/State/[facility] Co wy Phone Number [facility] * PEDIATRIC UPPER GI ENDOSCOPY (01/21/2012 3:14 PM EDT) Pediatric Upper Gi Endo [facility] Endoscopy Patient Name: Shilo Jon ? Procedure Date: 01/21/2012 3:14 PM ? Date of : 1995 ? Age: 16 ? Order #: [id number] ? Procedure: ? Pediatric Upper GI Endoscopy Indications: ? persistent abdominal pain, vomiting, ? and diarrhea Providers: ? Murali Tinoco MD, Marvin Hill ? , RN, Ana Martines, Actuarial Assistant Referring MD: ?Alex Wagoner MD Medicines: ? [...] COLONOSCOPY (01/21/2012 3:13 PM EDT) Pediatric Colonoscopy [facility] Endoscopy Patient Name: Shilo Jon ? Procedure Date: 01/21/2012 3:13 PM ? Date of : 1995 ? Age: 16 ? Order #: [id number] ? Procedure: ? Pediatric Colonoscopy Indications: ? persistent abdominal pain, vomiting, ? and diarrhea. Providers: ? Murali Tinoco MD, Marvin Hill ? , RN, Ana Martines, Actuarial Assistant Referring MD: ?Alex Wagoner MD Medicines: ? [...] PROVATION documented in this encounter Visit Diagnoses Not on filedocumented in this encounter Administered Medications Inactive Administered [...] RN) documented in this encounter Care Teams Credit Union Examiner Relationship Specialty Start Date End Date Alex Wagoner MD [address] [place] [address] PCP - General 01/01/12 07/31/13 documented as of this encounter
--- OUTSIDE RECORDS SUMMARY | 2024-06-15 11:05 | XMS_ITS | Encounter Summary ---
Author Organization [facility] Address [address] [place] [address] Care Team Providers Care Supersonic Engineer Name Role Phone Unavailable Primary Care Provider Unavailabl e Encounter Details Date Type Department Care Team (Latest Contact Info) Description 08/25/2015 13:21 EST - 08/25/2015 23:59 EST Hospital Encounter [facility] [address] [place] [address] Unknown, Provider, Discharge Disposition: Home or Self Care Social History Tobacco Use Types Packs/Day Years Used Date Smoking Tobacco: Never Assessed Sex and Gender Information Value Date Recorded Sex Assigned at Not on file Gender Identity Not on file Sexual Orientation Not on file documented as of this encounter Discharge Disposition Disposition Code Departure Means Destination Home or Self Half-Way documented in this encounter Plan of Treatment Not on file documented as of this encounter Visit Diagnoses Not on filedocumented in this encounter
--- OUTSIDE RECORDS SUMMARY | 2024-06-15 11:05 | XMS_ITS | Encounter Summary ---
[place] [address] Care Team Providers Care Medical Staff Coordinator Name Role Phone Yaw Becerra MD Primary Care Provider [phone] Encounter Details Date Type Department Care Team (Late st Contact Info) Description 02/07/2021 2:00 PM EDT Notes [place] [address] Social History Tobacco Use Types Packs/Day Years Used Date Smoking Tobacco: Every Day Comments:PARENTS Alcohol Use Standard Drinks/Week Comments No 0 (1 standard drink = 0.6 oz pur e alcohol) Sex and Gender Information Value Date Recorded Sex Assigned at Not on file Gender Identity Not on file Sexual Orientation Not on file documented as of this encounter Progress Notes * Fabiola Kim - 02/07/2021 2:00 PM EDTSummary: [place]- Bariatric Surgery Patient attended the Intro to Bariatric Surgery for the [place] program on 02/07/2021 documented in this encounter Plan of Treatment Not on file documented as of this encounter Visit Diagnoses Not on filedocumented in this encounter Care Teams Medical Staff Coordinator Relationship Specialty Start Date End Date Yaw Becerra MD [address] [place] [address] PCP - General 08/01/13 02/16/22 documented as of this encounter
--- OUTSIDE RECORDS SUMMARY | 2024-06-15 11:05 | XMS_ITS | Encounter Summary ---
Author Organization [facility] Address [address] [place] [address] Care Team Providers Care Warehouse Record Clerk Name Role Phone Unknown, Provider Primary Care Provider Encounter Details Date Type Department Care Team (Late st Contact Info) Description 01/17/2020 Lab Requisition [facility] Pathology & Laboratory Medicine - [address] [address] Unknown, Provider, Social History Tobacco Use Types Packs/Day Years Used Date Smoking Tobacco: Never Assessed Sex and Gender Information Value Date Recorded Sex Assigned at Not on file Gender Identity Not on file Sexual Orientation Not on file documented as of this encounter Plan of Treatment Not on file documented as of this encounter Procedures Procedure Name Priority Date/Time Associated Diagnosis Comments CHLAMYDIA/N. GONORRHOEAE AMPLIFIED NUCLEIC ACID Routine 01/17/2020 10:30 EDT documented in this encounter Results * CHLAMYDIA/N. GONORRHOEAE AMPLIFIED RNA (01/17/2020 10:30 EDT) Neisseria gonorrhoeae Result Negative Negative 01/19/2020 12:[address] [facility] Chlamydia trachomatis Result Negative Negative 01/19/2020 12:[address] [facility] Swab ENTIRE WALL OF CERVIX / Unknown 01/17/2020 10:30 EDT 01/17/2020 17:18 EDT Provider Unknown MICROBIOLOGY - GENER AL ORDERABLES [facility] [address] [place] [address] documented in this encounter Visit Diagnoses Not on filedocumented in this encounter Care Teams Warehouse Record Clerk Relationship Specialty Start Date End Date Unknown, Provider, PCP - General 09/03/15 documented as of this encounter
--- OUTSIDE RECORDS SUMMARY | 2024-06-15 11:05 | XMS_ITS | Encounter Summary ---
[place] [address] Care Team Providers Care Instructor Nurse Name Role Phone Yaw Becerra MD Primary Care Provider [phone] Reason for Visit * Reason Onset Date Comments Results 08/17/2013 MRI Encounter Details Date Type Department Care Team (Late st Contact Info) Description 08/17/2013 Telephone [place] [phone] Karen Strauss, RN Results (MRI) Social History Tobacco Use Types Packs/Day Years Used Date Smoking Tobacco: Every Day Comments:PARENTS Alcohol Use Standard Drinks/Week Comments No 0 (1 standard drink = 0.6 oz pur e alcohol) Sex and Gender Information Value Date Recorded Sex Assigned at Not on file Gender Identity Not on file Sexual Orientation Not on file documented as of this encounter Miscellaneous Notes * Telephone Encounter - Karen Strauss, RN - 08/17/2013 4:13 PM EST Message copied by KAREN STRAUSS on WedAug 17, 2013 4:13 PM ------ Message from: JUANITO ROB Created: WedAug 17, 2013 4:00 PM Contact: MotherGabi Voicemail - calling to get results of tests done yesterday (patient of Dr. Moon) +++ INTERPRETATION: EE08/16/13: This EEG is borderline abnormal due to the diffuse sharply-contoured theta and alpha activity, witha left frontal voltage predominance described above. CLINICAL CORRELATION: The above findings were of unknown significance. They were not clearly epileptiform. There were no definite focal regions of cerebral dysfunction or epileptiform activity present. A repeat or longer EEG may help differentiate the above findings if clinically indicated. 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 Technique: MRI of the brain without contrast. Findings: The ventricles are normal in size and contour. No evidence of acute ischemia. In the posterior aspect of the corpus callosum, just anterior to the splenium, there is a focal area of abnormal signal and volume loss. Increased T2 prolongation is also seen at the superior aspect of the bilateral atria and bilateral occipital lobe white matter. Multifocal small areas of abnormal T2 signal is present in the frontal lobes bilaterally. Areas of abnormal susceptibility are present in the posterior corpus callosum, and the bilateral medial parietal lobes likely representing blood products related to old injury. The pituitary and remaining midline structures are normal. The posterior fossa and cranial vertebral junction is normal. The gyral architecture is normal. A well-circumscribed lesion is seen in the left maxillary sinus. Small amount of fluid is seen in the right sphenoid sinus. The visualized mastoid air cells are clear. Impression: 1. Multifocal areas of T2 signal alteration, with gliosis in the posterior corpus callosum likely related to prior injury /insult. Additional areas susceptibility in the posterior corpus callosum and superior medial parietal lobes likely represent old blood products from previous parenchymal injury. 2. Left maxillary sinus lesion. Differential diagnosis includes polyp versus retention cyst. +++ I spoke with Dr. Moon. She reviewed the scan and reports. She would like Mom to know that Nimisha does show residual changes form her illness. It could explain some of her mood changes and attention issues, especially since some of the change are in the frontal area of the brain which helps to control emotional reactions. The EEG does have some abnormalities, although it is not seizure activity. A trial of medication such as Keppra Or Lamotrigine may be discussed. Mom agrees with the plan to schedule a follow-up visit to discuss the test results and options. I will send a copy of this note to home, PCP, and Dr. Gaona (psychiatrist). Time of call: 15 min documented in this encounter Plan of Treatment Not on file documented as of this encounter Visit Diagnoses Not on filedocumented in this encounter Care Teams Instructor Nurse Relationship Specialty Start Date End Date Yaw Becerra MD [address] [place] [address] PCP - General 08/01/13 02/16/22 documented as of this encounter
--- OUTSIDE RECORDS SUMMARY | 2024-06-15 11:05 | XMS_ITS | Encounter Summary ---
Author Organization [facility] [place] [address] Care Team Providers Care Account Adjuster Name Role Phone Alex Wagoner MD Primary Care Provider [phone] Encounter Details Date Type Department Care Team (Latest Contact Info) Description 01/12/2012 9:26 AM EDT - 01/12/2012 11:59 PM EDT Hospital Encounter [place] [address] CLINIC, Raine Casey MD [facility] DR PEDIATRIC [place] [address] Abdominal pain Discharge Disposition: Home Social History Tobacco Use Types Packs/Day Years Used Date Smoking Tobacco: Passive Smo ke Exposure - Never Smoker Comments:PARENTS Sex and Gender Information Value Date Recorded Sex Assigned at Not on file Gender Identity Not on file Sexual Orientation Not on file documented as of this encounter Medications at Time of Discharge [...] daily. 08/03/2013 documented as of this encounter Plan of Treatment Not on file documented as of this encounter Procedures Procedure Name Priority Date/Time Associated Diagnosis Comments NM GASTRIC EMPTYING SCAN Routine 01/12/2012 2:00 PM EDT Abdominal pain documented in this [...] 10%). IMPRESSION IMPRESSION: Normal gastric emptying. Raine USG NM ORDERABL ES documented in this encounter Visit Diagnoses Diagnosis Abdominal pain Abdominal pain, unspecified site documented in this encounter Care Teams Account Adjuster Relationship Specialty Start Date End Date Alex Wagoner MD [address] [place] [address] PCP - General 01/01/12 07/31/13 documented as of this encounter
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
--- OUTSIDE RECORDS SUMMARY | 2024-06-15 11:05 | XMS_ITS | Encounter Summary ---
[place] [address] Care Team Providers Care Video Game Maker Name Role Phone Alex Wagoner MD Primary Care Provider [phone] Encounter Details Date Type Department Care Team (Late st Contact Info) Description 01/21/2012 3:15 PM EDT Anesthesia [place] [address] Pricilla Baxter MD [facility] [place] [address] Gabi Sanchez CRNA [facility] [place] [address] Anesthesia Record Procedure Summary Procedure Name Responsible Anesthesiologist Anesthesia Start Time Anesthesia Stop Time PEDIATRIC COLONOSCOPY (WRVU 3.26) Pricilla Baxter MD 01/21/12 1515 01/21/12 1609 Events Date Time Event Comment 01/21/2012 1515 Start 1520 1609 Stop Meds * Agents No agents on file. * Blood No blood administrations on file. Lines, Drains, and Airways No LDAs on file. documented in this encounter Social History Tobacco Use Types Packs/Day Years Used Date Smoking Tobacco: Passive Smo ke Exposure - Never Smoker Comments:PARENTS Alcohol Use Standard Drinks/Week Comments No 0 (1 standard drink = 0.6 oz pur e alcohol) Sex and Gender Information Value Date Recorded Sex Assigned at Not on file Gender Identity Not on file Sexual Orientation Not on file documented as of this encounter OR Notes * Anesthesia Postprocedure Evaluation - Pricilla Baxter MD - 01/21/2012 4:16 PM EDT Patient: Nimisha Olivo Procedure(s) Performed: Procedure(s): PEDIATRIC COLONOSCOPY PEDIATRIC UPPER GI ENDOSCOPY Patient location: PACU Post-op pain: Adequate analgesia Post-op nausea: no nausea or vomiting Last Vitals: Filed Vitals: 01/21/12 1611 BP: 101/43 Pulse: 75 Resp: 16 Post-op cardiovascular and respiratory status: is stable Level of consciousness: sedated Complications: no apparent complications Fluid Status: normal * Anesthesia Preprocedure Evaluation - Pricilla Baxter MD - 01/21/2012 2:10 PM EDT Anesthesia Evaluation Patient summary reviewed and Nursing notes reviewed No hx of anesthetic complications Airway Mallampati: II TM distance: >3 FB Neck ROM: full Dental Pulmonary - negative ROS ROS comment: History of tracheostomy in the past for prolonged intubation (meningitis). Cardiovascular - negative ROS Neuro/Psych (+) psychiatric history (suicidal ideation and depression) GI/Hepatic/Renal Endo/Other Comments: obesity Abdominal Anesthesia Plan ASA 2 MAC Patient not engaged in process; non-talkative; Discussed events that are about to occur (IV, monitors, sedation). She stated she had this many times before and just wants to get it done. She denied any possibility of Anesthetic plan and risks discussed with patient and mother. Plan discussed with SPORTS UMPIRE. documented in this encounter Miscellaneous Notes * Addendum Note - Leta Melo - 01/22/2012 11:16 AM EDT Addendum created 01/22/12 1116 by Leta Melo Modules edited:Anesthesia Events, Anesthesia Responsible Staff documented in this encounter Plan of Treatment Not on file documented as of this encounter Visit Diagnoses Not on filedocumented in this encounter Care Teams Video Game Maker Relationship Specialty Start Date End Date Alex Wagoner MD [address] [place] [address] PCP - General 01/01/12 07/31/13 documented as of this encounter
--- OUTSIDE RECORDS SUMMARY | 2024-06-15 11:05 | XMS_ITS | Referral Summary ---
Author Organization [facility] Address [address] [place] [address] Care Team Providers Care Flatware Maker Name Role Phone Unknown, Provider Primary Care Provider [phone] Social History Tobacco Use Types Packs/Day Years Used Date Smoking Tobacco: Never Assessed Interpersonal Safety Answer Date Record ed Physically Hurt Never 05/05/2020 Verbally Threaten Not on file 05/05/2020 Sex and Gender Information Value Date Recorded Sex Assigned at Not on file Gender Identity Not on file Sexual Orientation Not on file Plan of Treatment Not on file Care Teams Flatware Maker Relationship Specialty Start Date End Date Unknown, Provider, PCP - General 09/03/15
--- OUTSIDE RECORDS SUMMARY | 2024-06-15 11:05 | XMS_ITS | Encounter Summary ---
[place] [address] Care Team Providers Care Siene Maker Name Role Phone Alex Wagoner MD Primary Care Provider [phone] Reason for Visit * Reason Onset Date Comments Follow-up 01/04/2012 Encounter Details Date Type Department Care Team (Late st Contact Info) Description 01/04/2012 Telephone Pediatric [place] [address] Raine Jeffries MD [facility] DR PEDIATRIC [place] [address] Follow-up Social History Tobacco Use Types Packs/Day Years Used Date Smoking Tobacco: Passive Smo ke Exposure - Never Smoker Comments:PARENTS Sex and Gender Information Value Date Recorded Sex Assigned at Not on file Gender Identity Not on file Sexual Orientation Not on file documented as of this encounter Miscellaneous Notes * Telephone Encounter - Shantell Singh RN - 01/06/2012 9:00 AM EDT Spoke with Mom repeat clean out was done, cleared stool now diarrhea. Nimisha continues to vomit 1-2 times per day. Notified Mom celiac and thyroid screen normal. Will follow up in clinic today at 1130. Mom agrees. * Telephone Encounter - Shantell Singh RN - 01/04/2012 11:53 AM EDT Nimisha is a 16 yo with constipation, nausea and abdominal pain. Spoke with Mom, Miralax clean out was done, had moderate amount of stool out, continues to have abdominal pain. Will repeat clean out and continue daily Miralax, follow up by phone next week if abdomial pain continues. documented in this encounter Plan of Treatment Not on file documented as of this encounter Visit Diagnoses Not on filedocumented in this encounter Care Teams Siene Maker Relationship Specialty Start Date End Date Alex Wagoner MD [address] [place] [address] PCP - General 01/01/12 07/31/13 documented as of this encounter
--- OUTSIDE RECORDS SUMMARY | 2024-06-15 11:05 | XMS_ITS | Encounter Summary ---
Author Organization [facility] Address [facility] [place] [address] Care Team Providers Care Ship Scraper Name Role Phone Alex Wagoner MD Primary Care Provider [phone] Encounter Details Date Type Department Care Team (Latest Contact Info) Description 01/01/2012 10:45 AM EDT - 01/01/2012 11:59 PM EDT Hospital Encounter XRay at [address] [place] [address] CLINIC, Raine Casey MD [facility] [place]ATR[place] [address] Nausea; Diarrhea Discharge Disposition: Home Social History Tobacco Use [...] Procedure Name Priority Date/Time Associated Diagnosis Comments XR ABDOMEN 1 VIEW Routine 01/01/2012 11: 06 AM EDT Nausea Diarrhea documented in this encounter Results * XR abdomen 1 view (01/01/2012 11:06 AM EDT) Anatomical Region Laterality Modality Abdomen N/A Radiographic Carmela ging 01/01/2012 11:0 6 AM EDT Impressions 01/02/2012 8:47 PM EDT IMPRESSION: Mild constipation. Narrative 01/02/2012 8:47 PM EDT AP SUPINE ABDOMEN, JANUARY 01, 2012: INDICATION: ??History of constipation. ??Question fecal load. FINDINGS: ??There appears to be a slight excess of stool in the right transverse colon and proximal left colon. ??However, there is no abnormal colonic distention. ??The small bowel appears normal. ?? Procedure Note Issa Krueger MD - 01/02/2012 AP SUPINE ABDOMEN, JANUARY 01, 2012: INDICATION: History of constipation. Question fecal load. FINDINGS: There appears to be a slight excess of stool in the righttransverse colon and proximal left colon. However, there is no abnormal colonic distention. The small bowel appears normal. IMPRESSION IMPRESSION: Mild constipation. Raine Jeffries MD IMG DX ORDERABL ES documented in this encounter Visit Diagnoses Diagnosis Nausea Nausea alone Diarrhea documented in this encounter Care Teams Ship Scraper Relationship Specialty Start Date End Date Alex Wagoner MD [address] [place] [address] PCP - General 01/01/12 07/31/13 documented as of this encounter
--- OUTSIDE RECORDS SUMMARY | 2024-06-15 11:05 | XMS_ITS | Encounter Summary ---
Author Organization [facility] Address [address] [place] [address] Care Team Providers Care Kettle Skimmer Name Role Phone Unknown, Provider Primary Care Provider [phone] Encounter Details Date Type Department Care Team (Late st Contact Info) Description 01/08/2021 Lab Requisition [facility] Pathology & Laboratory Medicine - [facility] [address] [place] [address] Outr Resulting Lab, Provider Social History Tobacco Use Types Packs/Day Years [...] Procedure Name Priority Date/Time Associated Diagnosis Comments ZZCOVID-19 TEST [facility] PCR Today 01/07/2021 12:30 EDT COVID-19 TESTING Routine 01/07/2021 12:3 0 EDT documented in this encounter Results * COVID-19 TEST [facility] PCR (01/07/2021 12:30 EDT) Swab ENTIRE NASOPHARYNX / Unknown 01/07/2021 12:30 EDT 01/08/2021 15:40 EDT Provider Outr Resulting Lab MICROBIOLOGY - GENERAL ORDERABLES [facility] [address] [place] [address] * COVID-19 TESTING (01/07/2021 12:30 EDT) COVID-19 rt-PCR Result Negative Negative 01/09/2021 13:59 EDT [facility] Comment: This test has not been FDA cleared or approved. This test has been authorized by FDA under an EUA for use by authorized laboratories. This test has been authorized only for detection of nucleic acid from 2019-nCoV, not for any other viruses or pathogens. This test is only authorized for the duration of the declaration that circumstances exist justifying the authorization of emergency use of in vitro diagnostic tests for detection and/or diagnosis of 2019-nCoV under section 564(b)(1) of Act, 21 U.S.C ?? 360bbb-3(b) (1), unless the authorization is terminated or revoked sooner. Negative results do not preclude 2019-nCoV infection and should not be used as the sole basis for treatment or other patient management decisions. Negative results must be combined with clinical observations, patient history, and epidemiological information. Testing was performed using the ruddy SARS-CoV-2 assay ([employer] on the Ruddy 6800 System Performing Lab Ruddy 68[address] [facility] Lab 01/09/2021 13:59 EDT [facility] Swab 01/07/2021 12:3 0 EDT 01/08/2021 15:40 EDT Provider Outr Resulting Lab MICROBIOLOGY - GENERAL ORDERABLES [facility] [address] [place] [address] documented in this encounter Visit Diagnoses Not on filedocumented in this encounter Care Teams Kettle Skimmer Relationship Specialty Start Date End Date Unknown, Provider, PCP - General 09/03/15 documented as of this encounter
--- OUTSIDE RECORDS SUMMARY | 2024-06-15 11:05 | XMS_ITS | Encounter Summary ---
Author Organization [facility] [address] Care Team Providers Care Basket Bottom Machine Operator Name Role Phone Yaw Becerra MD Primary Care Provider [phone] Reason for Visit * Reason Comments Follow-up Encounter Details Date Type Department Care Team (Latest Contact Info) Description 08/29/2013 9:15 AM EST Office [place] [address] Khadijah Moon MD [facility] [place] [address] Spells; Behavior disorder; History of meningococcal meningitis; History of septic shock; Intracerebral hemorrhage; Abnormal brain MRI; Abnormal EEG; Lump Discharge Disposition: Home Social History Tobacco Use [...] Sign Reading Time Taken Comments Blood Pressure 107/57 08/29/2013 9:22 AM EST Pulse 77 08/29/2013 9:22 AM EST Temperature - - Respiratory Rate 20 08/29/2013 9:22 AM EST Oxygen Saturation - - Inhaled Oxygen Concentration - - Weight 101.2 kg (223 lb 3.2 oz) 08/29/2013 9:22 AM EST Height 153.7 cm (5' 0.51) 08/29/2013 9:22 AM ES T Head Circumference 58.5 cm 08/29/2013 9:22 AM EST Body Mass Index 42.86 08/29/2013 9:22 AM EST Body Mass Index Percentile 99.83% 08/29/2013 9:2 2 AM EST Growth Chart: [facility] (Girls, 2- 20 Years) documented in this encounter Patient Instructions * Patient Instructions* Khadijah Moon MD - 08/29/2013 9:48 AM EST Follow up with Psychiatry, 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 Follow up with PCP if occipital swelling persists for a week. Follow up in neurology prn. documented in this encounter Progress Notes * Khadijah Moon MD - 08/29/2013 9:54 AM EST Nimisha Olivo was seen for followup of paroxysmal behaviors, history of bacterial meningitis, and a tender lump in the occipital region on 08/29/2013. INTERVAL HISTORY: Since I first met Nimisha several weeks ago, indicates she is 18 and 2/12th years of age. Since the last visit, she has unfortunately not returned to school. She has had several other emotional outbursts/meltdowns. Family continues to work with psychiatry and has an appointment in the next week or two. Diagnostic testing since the last visit revealed an EEG that was abnormal because of left frontal sharply contoured theta activity. Brain MRI revealed multifocal areas of T2 signal alteration with gliosis in the posterior corpus callosum, additional areas of susceptibility in the posterior corpus callosum and superior medial parietal lobes, likely consistent with old injury or blood products. Results have been discussed with the mother over the phone in the interim. Upon questioning, Nimisha and her mother do not think that she has ever tried Depakote or Lamictal for her behavioral dysregulation. Finally, Nimisha notes some painful swelling in the occipital region for the past several days. She notes no injury and denies any infections of the HEENT region. The lesion has not changed over the past day. There are no symptoms of weakness or numbness in the arms or legs. No bowel or bladder dysfunction. There is no swelling or respiratory difficulty. PAST MEDICAL HISTORY: Past medical history indicates she takes Prozac, Vyvanse, trazodone, guanfacine, and Geodon. ALLERGIES: SHE NOTES NO ALLERGIES TO MEDICATIONS. SOCIAL HISTORY: Updated social history indicates Nimisha continues to live with her parents and siblings and would very much like to return to school. REVIEW OF SYSTEMS: With the exception of the items mentioned above, is negative in detail. PHYSICAL EXAMINATION: Physical exam shows a well-appearing adolescent. Cardiac exam is benign. Chest is clear. Abdomen is soft. Neck is supple. Thyroid is not enlarged. She has some diffuse 1 x 2 cm area of swelling at the occiput. The area is tender, but there is no erythema. The swelling is clearly outside of the skull and may represent a lymph node. No other adenopathy is present in the cervical region. Gait is normal. Romberg is negative. Tandem is normal. Mental status and language are without error. Pupils are equal and round, eye movements are full and conjugate. Face is symmetric. There is no pronator drift. Tongue is midline. There is no appendicular ataxia. Muscle, bulk, tone, and strength are normal. Sensory is intact. Deep tendon reflexes are 1+ and symmetric. ASSESSMENT: 1. Symmetric nonfocal elemental neurologic exam. 2. Small tender swelling in the occipital region, may represent soft tissue injury versus lymph node, nothing to suggest central nervous system involvement. 3. 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 4. 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 RECOMMENDATION: 1. Mother should continue to work with the child psychiatry, and I will have the note forwarded to her provider once mother calls back with the name and address. 2. It may be that a trial of anticonvulsants would provide mood stabilization given the frontal lobe injury. 3. Follow up in neurology on a p.r.n. basis. 4. If tender swelling in the occipital region does not improve over a week, family should contact PCP for further evaluation. ADDENDUM As of 09/04, Mo has not called with address for Psychiatrist. Will have our staff call her to obtainaddress. documented in this encounter Plan of Treatment Not on file documented as of this encounter Visit Diagnoses Diagnosis Spells Other convulsions Behavior disorder Unspecified disturbance of conduct History of meningococcal meningitis Personal history of infections of the central nervous system History of septic shock Personal history of other infectious and parasitic disease Intracerebral hemorrhage Abnormal brain MRI Nonspecific (abnormal) findings on radiological and other examination of skull and head Abnormal EEG Nonspecific abnormal electroencephalogram (EEG) Lump Localized superficial swelling, mass, or lump documented in this encounter Care Teams Basket Bottom Machine Operator Relationship Specialty Start Date End Date Yaw Becerra MD [address] [place] [address] PCP - General 08/01/13 02/16/22 documented as of this encounter
--- OUTSIDE RECORDS SUMMARY | 2024-06-15 11:05 | XMS_ITS | Encounter Summary ---
Author Organization [facility] Address [address] [place] [address] Care Team Providers Care Java Architect Name Role Phone Unknown, Provider Primary Care Provider Encounter Details Date Type Department Care Team (Late st Contact Info) Description 12/08/2018 Results Only [facility] [phone] Rob Vitale, PEN TESTER [address] [place] [id number] Social History Tobacco Use Types Packs/Day Years Used Date Smoking Tobacco: Never Assessed Sex and Gender Information Value Date Recorded Sex Assigned at Not on file Gender Identity Not on file Sexual Orientation Not on file documented as of this encounter Plan of Treatment Not on file documented as of this encounter Procedures Procedure Name Priority Date/Time Associated Diagnosis Comments PAP TEST- RESULT ONLY Routine 12/08/2018 0:00 EST documented in this encounter Results * PAP TEST- RESULT ONLY (12/08/2018 0:00 EST) Pathology Report: CYTOPATHOLOGY REPORT Reports generated via electronic interface contain original data; however they are lacking the format of the original report. Caution should be taken when reading/interpreti ng unformatted reports. Name: ? NIMISHA JON ? Accession #: ? [id number] : ? 1995 (Age: 23) ??F ?Collect Date: ? 12/08/2018 Location: ? [facility] ? Receive Date: ? 12/09/2018 Provider: ?ROB VITALE APRN Copy to: ?HUMBERTO MARQUIS MD ? Specimen/Source: ?Pap Test, Endocervix, ThinPrep Imaging System with manual evaluation Last Menstrual Period: ? 11/26/18 Hormonal/Contracep tive Status: ? Oral contraceptives Other: ? First Pap ? SPECIMEN ADEQUACY ? Satisfactory for Evaluation - transformation zone component present GENERAL CATEGORIZATION ? Negative for Intraepithelial Lesion or Malignancy INTERPRETATION ? Fungal organisms present morphologically consistent with Patricia species. ? Document reviewed and electronically signed by: ? Timur Acuña, ANETA(ASCP) ? Report Date: ??12/13/2018 10:33 End of Report [facility] 12/08/2018 12/09/2018 Rob Vitale APRN PATHOLOGY ORDERAB LES [facility] [address] [place] [address] documented in this encounter Visit Diagnoses Not on filedocumented in this encounter Care Teams Java Architect Relationship Specialty Start Date End Date Unknown, Provider, PCP - General 09/03/15 documented as of this encounter
--- OUTSIDE RECORDS SUMMARY | 2024-06-15 11:05 | XMS_ITS | Encounter Summary ---
Author Organization [facility] Address [address] [place] [address] Care Team Providers Care Auto Tech Name Role Phone Unknown, Provider Primary Care Provider Encounter Details Date Type Department Care Team (Late st Contact Info) Description 08/25/2015 Historical Results Only [facility] Radiology Results [address] [place], [place] [id number] Amrita Comer PA [address] [place], [place] [address] Social History Tobacco Use Types Packs/Day Years Used Date Smoking Tobacco: Never Assessed Sex and Gender Information Value Date Recorded Sex Assigned at Not on file Gender Identity Not on file Sexual Orientation Not on file documented as of this encounter Plan of Treatment Not on file documented as of this encounter Procedures Procedure Name Priority Date/Time Associated Diagnosis Comments XR LUMBAR SPINE 2-3 VIEWS 08/25/2015 17:43 EST documented in this encounter Results * XR LUMBAR SPINE 2-3 VIEWS (08/25/2015 17:43 EST) Anatomical Region Laterality Modality Other 08/25/2015 17:4 3 EST Narrative 08/25/2015 17:43 EST ? EXAM: RADIOLOGY/LUMBAR SPINE 2 OR 3 VIEWS EX. D/ (1724) ? CLINICAL INFORMATION: ? FELL ONTO ROCK ? EXAM: ? XR Lumbar Spine, 2 or 3 Views. ? CLINICAL HISTORY: ? The patient is a 20 years old, ??female; Injury or trauma; ? Initial encounter; Contusion and sprain or strain, lumbar ? ligaments; Additional info: Fell onto [facility] exam id and ? description: Ls lumbar spine 2 or 3 views ? TECHNIQUE: ? Frontal and lateral views of the lumbar spine. ? COMPARISON: ? No relevant prior studies available. ? FINDINGS: ? Vertebrae: ??Unremarkable. ??No acute fracture. ??Normal ? alignment. ? Disc spaces: ??No acute findings. ??No significant narrowing. ? Soft tissues: ??Unremarkable. ? IMPRESSION: ? Normal lumbar spine. ? REPORT SIGNED IN OTHER VENDOR SYSTEM 08/25/2015 ?Reported By: Oliver Bustamante MD ? CC: ? Transcribed Date/Time: 08/25/2015 (8703) ? Cytotechnologist: ? Printed Date/Time: 03/15/2019 (1132) ? PAGE 1 ? Signed Report ? Procedure Note Oliver Bustamante T - 08/09/2019 EXAM: RADIOLOGY/LUMBAR SPINE 2 OR 3 VIEWS EX. D/ (1724) CLINICAL INFORMATION: FELL ONTO STEDMAN EXAM: XR Lumbar Spine, 2 or 3 Views. CLINICAL HISTORY: The patient is a 20 years old, female; Injury or trauma; Initial encounter; Contusion and sprain or strain, lumbar ligaments; Additional info: Fell onto [facility] exam id and description: Ls lumbar spine 2 or 3 views TECHNIQUE: Frontal and lateral views of the lumbar spine. COMPARISON: No relevant prior studies available. FINDINGS: Vertebrae: Unremarkable. No acute fracture. Normal alignment. Disc spaces: No acute findings. No significant narrowing. Soft tissues: Unremarkable. IMPRESSION: Normal lumbar spine. REPORT SIGNED IN OTHER VENDOR SYSTEM 08/25/2015 Reported By: Oliver Bustamante MD CC: Transcribed Date/Time: 08/25/2015 (1655) Cytotechnologist: Printed Date/Time: 03/15/2019 (1421) PAGE 1 Signed Report Amrita PETERSON IMG DIAGNOSTIC IMAGI NG ORDERABLES documented in this encounter Visit Diagnoses Not on filedocumented in this encounter Care Teams Auto Tech Relationship Specialty Start Date End Date Unknown, Provider, PCP - General 09/03/15 documented as of this encounter
--- OUTSIDE RECORDS SUMMARY | 2024-06-15 11:05 | XMS_ITS | Encounter Summary ---
[place] [address] Care Team Providers Care Child Care Assistant Name Role Phone Alex Wagoner MD Primary Care Provider Reason for Visit * Reason Comments Emesis x 3 weeks Abdominal Pain right sided Encounter Details Date Type Department Care Team (Latest Contact Info) Description 01/01/2012 10:00 AM EDT Office Visit [place] [address] Raine Jeffries MD [facility] PEDIATRIC [place]STR[place] [address] Vomiting (Primary Dx); Nausea; Diarrhea; Abdominal pain Discharge Disposition: Home Social History [...] Sign Reading Time Taken Comments Blood Pressure 116/71 01/01/2012 9:52 AM EDT Pulse 95 01/01/2012 9:52 AM EDT Temperature 36.6 ??C (97.9 ??F) 01/01/2012 9:52 AM ED T Respiratory Rate - - Oxygen Saturation - - Inhaled Oxygen Concentration - - Weight 94.7 kg (208 lb 12.8 oz) 01/01/2012 9:52 AM EDT Height 152.4 cm (5') 01/01/2012 9:52 AM EDT Body Mass Index 40.78 01/01/2012 9:52 AM EDT Body Mass Index Percentile 99.85% 01/01/2012 9:5 2 AM EDT Growth Chart: CDC (Girls, 2- 20 Years) documented in this encounter Patient Instructions * Patient Instructions* Shantell Singh RN - 01/01/2012 10:35 AM EDT Nimisha is a 16 yo with nausea, diarrhea, and abdominal pain. Per Dr Maddox will do KUB, celiac and thyroid screen, start zofran 8 mg po prn for nausea. 1500: Notified Mom KUB positive for stool throughout colon. Will do Miralax clean out and then start daily Miralax. Miralax Cleanout For Constipation Your doctor has prescribed Miralax to treat your child's constipation. If your child is impacted with stool a cleanout may need to be performed to empty out all of the stool. To do this you should mix 8 capfuls of Miralax in 32 oz of fluid (preferably Gatorade). Your child should drink 8 oz every 15 minutes until the mixture is gone. It is important to drink the fluid over a short period of time or the medicine will not work properly. Your child will experience diarrhea shortly after consuming Miralax. We would then expect you child to pass pieces of stool followed by diarrhea again. The goalfor the stool is to become pale iced tea color or clear. If you child does not have clear stool at the end then he/she may need additional doses of Miralax. Please call the office for assistance. Your child should be encouraged to continue drinking as Miralax works by bringing fluid into the colon to soften the stool. Your child with then be taking one capful of Miralax in 8 oz fluid daily in the morning. The goal for your child is to have daily applesauce consistency stool. If your child does not have a bowel movement during the day, then an additional one capful should be given in 8 oz of fluid in the evening.The amount of Miralax your child needs to achieve this may need to be adjusted. Please call the office for assistance. Your child needs to continue this medication until the follow up visit. It is often necessary to remain on Miralax for a long period of time to treat constipation and this is safe. Toilet sits: After eating sit on toilet for 4-5 minutes. Active pushing with feet elevated with step stool and blowing (blow bubbles, pin wheel) Your child will need a follow up appointment in ___8__ weeks. Pediatric Gastroenterology [phone] Shantell Singh, RN Nurse Coordinator [phone] documented in this encounter Progress Notes * Raine Jeffries MD - 01/01/2012 10:35 AM EDT 01/01/12 It was my pleasure to consult on and examine Nimisha Olivo at the [facility] at the request of Dr. Becerra for evaluation of abdominal pain, vomiting. Pt is accompanied by her mother. HPI As you know, Nimisha is a 16 y.o. 6 m.o. female child, whose symptoms having been ongoing for almost 3 weeks. Recalls with initial presentation, low grade fever. Began with NBNB vomiting. Associated nausea. Intially no diarrhea. Nimisha states lately looser BM. No apprecaible mucus/blood. No nocturnal symptoms. Nimisha reports decreased energy. Abdominal pain, typically RLQ/diffuse. Nimisha explains has nausea intermittent vomiting almost every time eats. States occurs often 6-7 times/day. NBNB. Hydration now being maintained with Gatorade and gingerale. Now reports having bland foods including popsicles, toast, etc. Has been out of school since onset of symptoms. Mother has contacted office for coursework which Nimisha is missing. Previous semester struggled with Depression. Past week admitted for dehydration. Workup with normalCMP, CBC with WBC of 8.7 N: 70%, no bands, ESR 25. CRP 0.35. Normal UA, negative UCx. Nl pelvic andabdominal U/S. Given Toradol and Zofran. Nimisha does not feel Toradol helped. 5 months prior hospitalized workup due to abdominal pain. Work up included normal abdominal CT; abdominal and pelvic U/S. Nimisha takes Miralax prn. Seems was started during previous (July) workup for abodminal pain. Denies constipation. Previous reports reviewed: Patient information form office notes Review of Systems 14 point review of systems revealed the following in addition to any already discussed in the HPI: Constitutional:none Eyes:none HENT:none Respiratory:none Cardiovascular:none Abdominal:none :none Skin:none Neurologic:none Musculoskeletal:none Psychiatric:none Endocrine:none Hematologic:none Allergic/Immunologic:none History I have reviewed past medical, surgical, social and family history, medications and allergies as documented in the patient's electronic medical record. 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 FLUoxetine (PROZAC) 10 mg capsule Take 20 mg by mouth daily. ??? lisdexamfetamine (VYVANSE) 50 mg capsule Take 50 mg by mouth every morning. ??? QUEtiapine (SEROQUEL) 100 mg tablet Take 100 mg by mouth 2 times daily. ??? polyethylene glycol (MIRALAX) 17 gram packet Take 17 g by mouth daily. Allergies Review of patient's allergies indicates not on file. Exam Blood pressure 116/71, pulse 95, temperature 36.6 ??C (97.9 ??F), height 152.4 cm (5'), weight 94.711 kg (208 lb 12.8 oz). 99.09% of growth percentile based on fseryy-hoz-sfc. 8.50% of growth percentile based on ndgybtw-pda-jhb. Body mass index is 40.78 kg/(m^2). 99.45% of growth percentile based on BMI-for-age. General:alert, obese, in no acute distress Head:normocephalic, atraumatic Ears:normal external appearance Eyes:PERRL, normal conjunctiva and lids Nose:normal appearance Mouth:mucous membranes moist, normal tonsils and oropharnyx Neck:supple, no masses, well healed trach scar Lymph nodes:no lymphadenopathy Lungs:clear to auscultation, with good air entry throughout. No wheezes, crackles, or stridor Cardiac:regular rate and rhythm, normal S1 and S2, no murmur Abdomen: obese, ND, soft, TTP diffuse, no rebound, no guarding, normoactive BS Rectal:deferred Neurologic:alert, somewhat flat affect, normal muscle tone Extremities:no clubbing, cyanosis, deformities, or edema Skin:no rashes or jaundice Assessment/Plan Nimisha is a 16 y.o. 6 m.o. female with vomiting, nausea, abdominal pain, now with questionable diarrhea. Discussed that symptoms due suggest viral process. Given history of constipation previously, and looser BM will obtain KUB today to assess for constipation as cause of RLQ pain. Will send celiac and thyroid screening labs today. Will trial Zofran for nausea. Follow up appointment in 6-8 weeks. Willcall if symptoms worsen. Parent expresses comfort and understanding of plan. Thank you for this consultation. I look forward to following her care along with you. Copy sent to: Yaw Becerra MD Addendum: KUB with fair fecal load. Will proceed with Miralax cleanout. documented in this encounter Plan of Treatment Not on file documented as of this encounter Procedures Procedure Name Priority Date/Time Associated Diagnosis Comments TISSUE TRANSGLUTAMINASE, IGA Routine 01/01/2012 10:52 AM EDT Nausea Diarrhea TSH Routine 01/01/2012 10:52 AM EDT Nausea Diarrhea T4, FREE Routine 01/01/2012 10:52 AM EDT Nausea Diarrhea IGA Routine 01/01/2012 10:52 AM EDT Nausea Diarrhea documented in this [...] Raine Jeffries MD IMG DX ORDERABL ES * IgA (01/01/2012 10:52 AM EDT) [facility] IgA 245 47 - 249 mg/dL [facility] Blood specimen (specimen) 01/01/2012 10:52 AM EDT 01/01/2012 11:00 AM EDT Narrative Resulting Agency Comment Spec In Lab Raine Jeffries MD CHEMISTRY ORDER KOFI Performing Organization Address [facility] de Phone Number [facility] * Tissue transglutaminase, IgA (01/01/2012 10:52 AM EDT) Pathologist [facility] TTG IgA Ab <4.0 <=3.9 u/ml [facility] Comment: Result Interpretation: Negative: ?<4 U/mL Weak Positive: ??4-10 U/mL Positive: ?>10 U/mL Blood specimen (specimen) 01/01/2012 10:52 AM EDT 01/01/2012 2:26 PM EDT Narrative Resulting Agency Comment Spec In Lab Raine Jeffries MD IMMUNOLOGY ORDE RABLES [facility] * TSH (01/01/2012 10:52 AM EDT) Thyroid Stimulating Hormone 1.13 0.27 - 4.20 mcIU/mL [facility] Blood specimen (specimen) 01/01/2012 10:52 AM EDT 01/01/2012 11:00 AM EDT Narrative Resulting Agency Comment Spec In Lab Raine Jeffries MD CHEMISTRY ORDER KOFI Performing Organization Address City/[facility]/ZIP Co de Phone Number [facility] * T4, free (01/01/2012 10:52 AM EDT) Free T4 1.06 0.90 - 1.60 ng/dL [facility] Blood specimen (specimen) 01/01/2012 10:52 AM EDT 01/01/2012 11:00 AM EDT Narrative Resulting Agency Comment Spec In Lab Raine Jeffries MD CHEMISTRY ORDER KOFI Performing Organization Address City/[facility] Co de Phone Number [facility] documented in this encounter Visit Diagnoses Diagnosis Vomiting- Primary Vomiting alone Nausea Nausea alone Diarrhea Abdominal pain Abdominal pain, unspecified site Nausea Nausea alone Diarrhea documented in this encounter Care Teams Child Care Assistant Relationship Specialty Start Date End Date Alex Wagoner MD [address] [place] [address] PCP - General 01/01/12 07/31/13 documented as of this encounter
--- OUTSIDE RECORDS SUMMARY | 2024-06-15 11:05 | XMS_ITS | Encounter Summary ---
Author Organization [facility] Address [facility] [place] [address] Care Team Providers Care Healthcare Consultant Name Role Phone Yaw Becerra MD Primary Care Provider [phone] Encounter Details Date Type Department Care Team (Latest Contact Info) Description 08/16/2013 9:59 AM EST - 08/16/2013 11:59 PM [facility] Hospital [place] [address] CLINIC, Khadijah Greene MD [facility] [place] [address] Memory changes; Neurobehavioral disorder Discharge Disposition: Home Social History Tobacco Use [...] Sig Dispensed Refills Start Date End Date traZODone (DESYREL) 50 mg tablet Take 50 mg by mouth nightly. FLUoxetine (PROZAC) 10 mg capsule Take 20 mg by mouth daily. lisdexamfetamine (VYVANSE) 50 mg capsule Take 50 mg by mouth every morning. polyethylene glycol (MIRALAX) 17 gram packet Take 17 g by mouth daily. ondansetron (ZOFRAN) 8 mg tabletIndications:Nausea Take 1 tablet by mouth every 8 hours as needed for Nausea. 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 ?? Technique MRI of the brain without contrast. Findings The ventricles are normal in size and contour. No evidence of acute ischemia. In the posterior aspect of the corpus callosum, just anterior to the splenium, there is a focal area of abnormal signal and volume loss. Increased T2 prolongation is also seen at ??the superior aspect of the bilateral atria and bilateral occipital lobe white matter. Multifocal small areas of abnormal T2 signal is present in the frontal lobes bilaterally. Areas of abnormal susceptibility are present in the posterior corpus callosum, and the bilateral medial parietal lobes likely representing blood products related to old injury. The pituitary and remaining midline structures are normal. ??The posterior fossa and cranial vertebral junction is normal. The gyral architecture is normal. ??A well-circumscribed lesion is seen in the left maxillary sinus. Small amount of fluid is seen in the right sphenoid sinus. ??The visualized mastoid air cells are clear. Impression ? 1. Multifocal areas of T2 signal alteration, with gliosis in the posterior corpus callosum likely related to prior injury /insult. Additional areas susceptibility in the posterior corpus callosum and superior medial parietal lobes likely represent old blood products from previous parenchymal injury. ? 2. Left maxillary sinus lesion. Differential diagnosis includes polyp versus retention cyst. 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 Technique MRI of the brain without contrast. Findings The ventricles are normal in size and contour. No evidence of acuteischemia. In the posterior aspect of the corpus callosum, just anterior to thesplenium, there is a focal area of abnormal signal and volume loss. Increased T2 prolongation is also seen at the superior aspect of the bilateral atriaand bilateral occipital lobe white matter. Multifocal small areas of abnormalT2 signal is present in the frontal lobes bilaterally. Areas of abnormal susceptibility are present in the posterior corpus callosum, and thebilateral medial parietal lobes likely representing blood products related to oldinjury. The pituitary and remaining midline structures are normal. The posteriorfossa and cranial vertebral junction is normal. The gyral architecture isnormal. A well-circumscribed lesion is seen in the left maxillary sinus. Smallamount of fluid is seen in the right sphenoid sinus. The visualized mastoid aircells are clear. Impression 1. Multifocal areas of T2 signal alteration, with gliosis in theposterior corpus callosum likely related to prior injury /insult. Additional areas susceptibility in the posterior corpus callosum and superior medialparietal lobes likely represent old blood products from previous parenchymalinjury. 2. Left maxillary sinus lesion. Differential diagnosis includes polyp versus retention cyst. 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
--- OUTSIDE RECORDS SUMMARY | 2024-06-15 11:05 | XMS_ITS | Encounter Summary ---
Author Organization [facility] Address [address] [place] [address] Care Team Providers Care Supervisor [employer] Name Role Phone Unknown, Provider Primary Care Provider Encounter Details Date Type Department Care Team (Late st Contact Info) Description 10/05/[address] [facility] Pathology & Laboratory Medicine - [address] [address] Unknown, Provider, Social History Tobacco Use Types Packs/Day Years Used Date Smoking Tobacco: Never Assessed Sex and Gender Information Value Date Recorded Sex Assigned at Not on file Gender Identity Not on file Sexual Orientation Not on file documented as of this encounter Plan of Treatment Not on file documented as of this encounter Procedures Procedure Name Priority Date/Time Associated Diagnosis Comments HIV 1/2 ANTIGEN AND ANTIBODY, 4TH GENERATION Routine 10/05/2019 8:40 EST documented in this encounter Results * HIV 1/2 ANTIGEN AND ANTIBODY, 4TH GENERATION (10/05/2019 8:40 EST) HIV 1 and 2 Antibody/p24 Antigen, 4th Generation Negative Negative 10/06/2019 10:11 EST [facility] Comment: If acute HIV-1 infection is suspected in a high risk ??patient, submit plasma specimen for HIV-1 RNA quantitation test. Fourth Generation assay performed on the Siemens [employer]ruaur. Blood VENOUS BLOOD / Unknown 10/05/2019 8:40 EST 10/05/2019 21:06 EST Provider Unknown IMMUNOLOGY AND SEROL OGY ORDERABLES [facility] [address] [place] [id number] documented in this encounter Visit Diagnoses Not on filedocumented in this encounter Care Teams Supervisor [employer] Relationship Specialty Start Date End Date Unknown, Provider, PCP - General 09/03/15 documented as of this encounter
--- OUTSIDE RECORDS SUMMARY | 2024-06-15 11:05 | XMS_ITS | Encounter Summary ---
Author Organization [facility] Address [address] [place] [address] Care Team Providers Care Nutrition And Dietetics Instructor Name Role Phone Unknown, Provider Primary Care Provider Encounter Details Date Type Department Care Team (Late st Contact Info) Description 11/26/2020 Lab Requisition [facility] Pathology & Laboratory Medicine - [facility] [address] [place] [address] Outr Resulting Lab, Provider Social History Tobacco [...] Comments ZZCOVID-19 TEST [facility] PCR Today 11/25/2020 14:45 EST COVID-19 TESTING Routine 11/25/2020 14:4 5 EST documented in this encounter Results * COVID-19 TEST [facility] PCR (11/25/2020 14:45 EST) Swab ENTIRE NASOPHARYNX / Unknown 11/25/2020 14:45 EST 11/26/2020 16:18 EST Provider Outr Resulting Lab MICROBIOLOGY - GENERAL ORDERABLES [facility] [address] [place] [address] * COVID-19 TESTING (11/25/2020 14:45 EST) COVID-19 rt-PCR Result Negative Negative 11/28/2020 14:18 EST [facility] Comment:This is an appended report. These results have been appended to a previously preliminary verified report. Performing Lab Alverda [facility] 11/28/2020 14:18 EST [facility] Comment:This is an updated r esult. Previous result was [facility] on 11/27/2020 at 1249 EST Swab 11/25/2020 14:4 5 EST 11/26/2020 16:18 EST Provider Outr Resulting Lab MICROBIOLOGY - GENERAL ORDERABLES [facility] [address] [place] [address] documented in this encounter Visit Diagnoses Not on filedocumented in this encounter Care Teams Nutrition And Dietetics Instructor Relationship Specialty Start Date End Date Unknown, Provider, PCP - General 09/03/15 documented as of this encounter
--- OUTSIDE RECORDS SUMMARY | 2024-06-15 11:05 | XMS_ITS | Clinical Summary ---
Author Organization [facility] Address [address] [place] [address] Care Team Providers Care Breastfeeding Educator Name Role Phone Unknown, Provider Primary Care Provider [phone] Social History Tobacco Use Types Packs/Day Years Used Date Smoking Tobacco: Never Assessed Interpersonal Safety Answer Date Record ed Physically Hurt Never 05/05/2020 Verbally Threaten Not on file 05/05/2020 Sex and Gender Information Value Date Recorded Sex Assigned at Not on file Gender Identity Not on file Sexual Orientation Not on file Plan of Treatment Health Maintenance Due Date Last Done Comments Hepatitis C Screen 1997 Hepatitis B Vaccine (1 of 3 - 19+ 3-dose series) 06/19 COVID-19 Vaccine (2022-24 season) 2024 Care Teams Breastfeeding Educator Relationship Specialty Start Date End Date Unknown, Provider, PCP - General 09/03/15
--- OUTSIDE RECORDS SUMMARY | 2024-06-15 11:05 | XMS_ITS | Encounter Summary ---
Author Organization [facility] [place] [address] Care Team Providers Care Auto Painter Helper Name Role Phone Alex Wagoner MD Primary Care Provider Reason for Visit * Reason Onset Date Comments Results 01/26/2012 Encounter Details Date Type Department Care Team (Late st Contact Info) Description 01/26/2012 Telephone Pediatric [place] [address] Raine Jeffries MD [facility] DR [place]ATR[place] [address] Results Social History Tobacco Use Types Packs/Day Years [...] Telephone Encounter - Shantell Singh RN - 02/05/2012 12:04 PM EDT Notified Dad disaccharidase biopsy positive for lactose intolerance. Mailed information to home address. * Telephone Encounter - Shantell Singh RN - 01/26/2012 12:47 PM EDT Nimisha is a 16 yo with vomiting and abdominal pain. EGD/colo was done on 01/20, notified Mom biopsiesconsistent with mild esophagitis. Per Dr Maddox will start Prilosec and follow up in 4-5 weeks. documented in this encounter Plan of Treatment Not on file documented as of this encounter Visit Diagnoses Diagnosis Esophagitis- Primary Esophagitis, unspecified documented in this encounter Care Teams Auto Painter Helper Relationship Specialty Start Date End Date Alex Wagoner MD [address] [place] [address] PCP - General 01/01/12 07/31/13 documented as of this encounter
--- OUTSIDE RECORDS SUMMARY | 2024-06-15 11:05 | XMS_ITS | Clinical Summary ---
Author Organization [facility] Address [facility] [place] [address] Care Team Providers Care Photovoltaic Technician Name Role Phone Unknown Primary Care Provider Unavailabl e Allergies No known active allergies Medications Medication Sig Dispensed Refills Start Date End Date Status FLUoxetine (PROZAC) 10 mg capsule Take 20 mg by mouth daily. Active lisdexamfetamine (VYVANSE) 50 mg capsule Take 50 mg by mouth every morning. Active polyethylene glycol (MIRALAX) 17 gram packet Take 17 g by mouth daily. Active ondansetron (ZOFRAN) 8 mg tabletIndications:Reed sea Take 1 tablet by mouth every 8 hours as needed for Nausea. 20 tablet 0 01/01/2012 Active traZODone (DESYREL) 50 mg tablet Take 50 mg by mouth nightly. 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 History of septic shock 08/03/2013 Intracerebral hemorrhage 08/03/2013 Abdominal pain 01/06/2012 Nausea 01/01/2012 Diarrhea 01/01/2012 Social History Tobacco Use Types Packs/Day Years Used Date Smoking Tobacco: Every Day Comments:PARENTS Alcohol Use Standard Drinks/Week Comments No 0 (1 standard drink = 0.6 oz pur e alcohol) Sex and Gender Information Value Date Recorded Sex Assigned at Not on file Gender Identity Not on file Sexual Orientation Not on file Last Filed Vital Signs Vital Sign Reading Time Taken Comments Blood Pressure 107/57 08/29/2013 9:22 AM EST Pulse 77 08/29/2013 9:22 AM EST Temperature 36.6 ??C (97.9 ??F) 01/01/2012 9:52 AM ED T Respiratory Rate 20 08/29/2013 9:22 AM EST Oxygen Saturation 100% 01/21/2012 4:35 PM EDT Inhaled Oxygen Concentration - - Weight 101.2 kg (223 lb 3.2 oz) 08/29/2013 9:22 AM EST Height 153.7 cm (5' 0.51) 08/29/2013 9:22 AM ES T Body Mass Index 42.86 08/29/2013 9:22 AM EST Plan of Treatment Health Maintenance Due Date Last Done Comments HPV vaccine (1 - 3-dose series) 2012 HIV screen 2015 Hepatitis C Screening 2015 Lipid Screening 2015 Hepatitis B vaccine (0-59 yrs) (1) 2016 Tdap adult 2016 Tetanus vaccine 2016 PAP Smear 2018 Covid-19 Vaccine ( - 2022- season) 2024 Influenza (Flu) vaccine (1 o f 1 - Influenza standard series) 06/04/2024 Care Teams Photovoltaic Technician Relationship Specialty Start Date End Date Unknown None PCP - General 02/17/22
--- OUTSIDE RECORDS SUMMARY | 2024-06-15 11:05 | XMS_ITS | Encounter Summary ---
Author Organization [facility] [place] [address] Care Team Providers Care Dredge Or Barge Shore Hand Name Role Phone Alex Wagoner MD Primary Care Provider [phone] Reason for Visit * Reason Onset Date Comments Results 01/13/2012 Encounter Details Date Type Department Care Team (Late st Contact Info) Description 01/13/2012 Telephone Pediatric [place] [address] Murali Tinoco MD [facility] DR PEDIATRIC [place] [address] Results Social History Tobacco Use Types Packs/Day Years Used Date Smoking Tobacco: Passive Smo ke Exposure - Never Smoker Comments:PARENTS Sex and Gender Information Value Date Recorded Sex Assigned at Not on file Gender Identity Not on file Sexual Orientation Not on file documented as of this encounter Miscellaneous Notes * Telephone Encounter - Shantell Borges RN - 01/13/2012 9:40 AM EDT Nimisha is a 16 yo with abdominal pain, nausea and vomiting. Gastric emptying scan was done 01/11, notified Mom of normal results. Will do EGD/colo on 01/20 as scheduled. * Telephone Encounter - Shantell Borges RN - 01/13/2012 9:37 AM EDT Message copied by SHANTELL BORGES on WedJan 13, 2012 9:37 AM ------ Message from: MURALI TINOCO Created: WedJan 12, 2012 6:48 PM Normal gastric emptying scan. Egd, colon on 01/20. Murali Brown ----- Message ----- From: Radiology Department Sent: 01/12/2012 5:12 PM To: Murali Tinoco MD documented in this encounter Plan of Treatment Not on file documented as of this encounter Visit Diagnoses Not on filedocumented in this encounter Care Teams Dredge Or Barge Shore Hand Relationship Specialty Start Date End Date Alex Wagoner MD [address] [place] [address] PCP - General 01/01/12 07/31/13 documented as of this encounter
[2024-06-15] MEDS: Lactated Ringers 1,000 ML 1000 ML IV (11:16)
[2024-06-15] MEDS: Ondansetron 4 MG/2 ML VIAL IVP (11:16)
[2024-06-15 11:25] LABS: Abs Immature Grans 0.05 10^3/uL (0.0-0.06); Absolute Basophil Count 0.05 10^3/uL (0.0-0.2); Absolute Eosinophil Count 0.07 10^3/uL (0.0-0.7); Absolute Lymphocyte Count 3.25 10^3/uL (1.2-3.4); Absolute Monocyte Count 0.67 10^3/uL (0.1-0.8); Absolute Neutrophil Count 6.26 10^3/uL (1.2-6.7); Basophils % 0.5 %; Eosinophils % 0.7 %; HCT 45.1 % (36.0-46.0); HGB 14.9 g/dL (11.2-15.7); Immature Grans % 0.5 %; Lactate 1.3 mmol/L (0.6-1.4); Lymphocytes % 31.4 %; MCH 28.6 pg (27.0-33.0); MCV 87 fL (80-95); MPV 8.4 fL (8.0-11.0); Monocytes % 6.5 %; Neutrophils % 60.4 %; Platelet Count 266 10^3/uL (130-400); RBC 5.21 10^6/uL (3.93-5.22); RDW 13.1 % (11.7-14.6); RDW-SD 41.2 fL; WBC 10.35 10^3/uL (4.4-10.8)
--- NOTE | 2024-06-15 11:47 | DI.CT_ITS ---
Exam(s) CT THORAX ABD/PEL CTA EXAM: CT THORAX ABD/PEL CTA CLINICAL HISTORY: hematemesis. TECHNIQUE: Imaging Protocol: Axial CT angiography was performed with multi-slice acquisition and m ulti-planar and/or 3D reconstructions. CONTRAST MATERIAL: Intravenous: Omnipaque 350 Contrast volume:structured data in ml Oral: / no COMPARISON: CR ABD FLAT UPRIGHT PA CHEST from 11/16/[address] ABDOMEN PELVIS W from 01/12/2023 FINDINGS: CHEST: Pulmonary Arteries: No evidence of filling defect to suggest pulmonary emboli. Tracheobronchial tree: Patent where visualized. Mediastinum and Audrey: No dominant adenopathy or fluid collection. Esophagus not thickened. No perf oration. Pulmonary parenchyma: Bilateral upper lobe tree-in-bud opacities. Some air trapping noted in the low er lobes. No consolidation or dominant measurable mass. No architectural distortion. Pleura: No effusion or pneumothorax. Heart: The heart is not dilated. No coronary artery calcifications are seen. Aorta: Thoracic aorta non-dilated. Bones: Normal. Tubes, Catheters, and Lines: None ABDOMEN AND PELVIS: Abdomen: Celiac axis/mesenteric arteries: No evidence of occlusion or significant stenosis. Renal Arteries: No evidence of occlusion or significant stenosis. There are 2 arteries perfusing eac h kidney. Aorta: No evidence of occlusion or significant stenosis. No aneurysm or dissection. Pelvis: Iliac Arteries: No evidence of occlusion or significant stenosis. Common Femoral Arteries: No evidence of occlusion or significant stenosis. ABDOMEN: Liver: Normal density. No measurable mass. Gallbladder and Biliary Tract: No radiodense calculus or dilation. Pancreas: Normal density, no abnormal calcifications or inflammatory process. Spleen: Normal. Adrenals: No masses seen. Kidneys: Normal size, contour and axis. No radiodense stones or obstructive uropathy. No masses seen. Bowel: No obstruction or bowel wall thickening. Appendix is unremarkable. No abnormal bowel wall en hancement. Peritoneal Cavity: No ascites, collection or mesenteric inflammatory response. Lymph Nodes: Within normal limits. Bones: Unremarkable. Soft Tissues: Increased density in the subcutaneous fat of the right lateral abdomen. No focal colle ction. Findings may represent contusion. PELVIS: Bladder: Symmetric distention, no gross wall thickening. Reproductive Organs: Unremarkable as visualized. Lymph Nodes: Within normal limits. Bones: Within normal limits. IMPRESSION: Normal CT Angiogram of the chest, abdomen and pelvis. Bilateral upper lobe tree-in-bud opacities co uld be secondary to infectious or inflammatory causes. RADIATION DOSE DELIVERED: 996.74mGy.cm Total DLP DATA REPOSITORY: All CT scans at this facility are submitted to the National Radiology Data Registry (NRDR) Dose Index Registry (DIR) with the [employer] (ACR). RADIATION OPTIMIZATION: All CT scans at this facility use at least one of these dose optimization te chniques: automated exposure control; mA and/or kV adjustment per patient size (includes targeted exa ms where dose is matched to clinical indication); or iterative reconstruction.
[2024-06-15] MEDS: Normal Saline - Diluent 50 ML VIAL IJ (11:48)
[2024-06-15] MEDS: Omnipaque 350 MG/ML 500 ML BTL-Imaging package 100 ML IJ (11:49)
[2024-06-15 11:56] LABS: ALT 23 U/L (14-59); AST 19 U/L (15-37); Albumin 3.3 g/dL (3.4-5.0); Alkaline Phosphatase 89 U/L (46-116); Anion Gap 7.7 mmol/L (3-11); BUN 7 mg/dL (7-18); Bilirubin, Total 0.19 mg/dL (0.2-1.0); CO2 28.3 mmol/L (21.0-32.0); CREATININE 0.7 mg/dL (0.55-1.02); Calcium 9.4 mg/dL (8.5-10.1); Chloride 101 mmol/L (98-107); Estimated GFR 122.25 (mL/min/1.73m2); Glucose 96 mg/dL (74-106); Lipase 19 U/L (16-77); Magnesium 1.6 mg/dL (1.8-2.4); Potassium 3.6 mmol/L (3.5-5.1); Sodium 137 mmol/L (136-145); Total Protein 7.6 g/dL (6.4-8.2)
[2024-06-15 12:13] LABS: Procalcitonin < 0.1 ng/mL
== END 2024-06-15 12:32 | disposition home or self-care (01) ==
PROVIDERS: Emergency Provider Physician Assistant
DX: R11.10 Vomiting, unspecified (principal); E61.2 Magnesium deficiency; R10.13 Epigastric pain
CPT/HCPCS: 71275; 80053; 81025; 83690; 84145; 96361; 96374; 99285; 74174; 83605; 83735; 85025; 99284; J2405

== ENCOUNTER 2024-08-08 19:08 | Emergency (ER) | payer MEDICAID, SELFPAY ==
[2024-08-08 19:13] VITALS: BP 133/95; PULSE 101; RESP 16; TEMP 36.1; O2SAT 96
--- OUTSIDE RECORDS SUMMARY | 2024-08-08 19:41 | XMS_ITS | Clinical Summary ---
Author Organization [facility] Address [facility] [place] [address] Care Team Providers Care Chemical Process Engineer Name Role Phone Unknown Primary Care Provider [...] Health Maintenance Due Date Last Done Comments HIV screen 2015 Hepatitis C Screening 2015 Lipid Screening 2015 Hepatitis B vaccine (0-59 yrs) (1) 2016 Tetanus/Diphtheria/Pertussis Vaccines (1 - Tdap) 06/19 PAP Smear 2018 Covid-19 Vaccine (1 - 2022- season) 2024 Influenza (Flu) vaccine (1 o f 1 - Influenza standard series) 06/04/2024 Care Teams Chemical Process Engineer Relationship Specialty Start Date End Date Unknown None PCP - General 02/17/22
--- OUTSIDE RECORDS SUMMARY | 2024-08-08 19:41 | XMS_ITS | Encounter Summary ---
Author Organization [facility] Address [address] [place] [address] Care Team Providers Care Mortgage Manager Name Role Phone Unknown, Provider Primary Care Provider Unava ilable Encounter Details Date Type Department Care Team (Late st Contact Info) Description 01/08/2021 Lab Requisition [facility] Pathology & Laboratory Medicine - [facility] [address] [place] [address] Outr Resulting Lab, Provider Social History Tobacco [...] Outr Resulting Lab MICROBIOLOGY - GENERAL ORDERABLES [facility] [address] [place] [address] * COVID-19 TESTING (01/07/2021 12:30 EDT) COVID-19 rt-PCR Result Negative Negative 01/09/2021 13:59 EDT [facility] Comment: This test has not [...] was performed using the ruddy SARS-CoV-2 assay ([employer] on the Ruddy 6800 System Performing Lab Ruddy [address] [facility] Lab 01/09/2021 13:59 EDT [facility] Swab 01/07/2021 12:3 0 EDT 01/08/2021 15:40 EDT Provider Outr Resulting Lab MICROBIOLOGY - GENERAL ORDERABLES [facility] [address] [place] [address] documented in this encounter Visit Diagnoses Not on filedocumented in this encounter Care Teams Mortgage Manager Relationship Specialty Start Date End Date Unknown, Provider, PCP - General 09/03/15 documented as of this encounter
--- OUTSIDE RECORDS SUMMARY | 2024-08-08 19:41 | XMS_ITS | Encounter Summary ---
Author [facility] [place] [address] Care Team Providers Care Unit Secy Name Role Phone Alex Wagoner MD Primary Care Provider [phone] Reason for Visit * Reason Onset Date Comments Results 01/26/2012 Encounter Details Date Type Department Care Team (Late st Contact Info) Description 01/26/2012 Telephone Pediatric [place] [address] Raine Jeffries MD [facility] [address] [place] [address] Results Social History Tobacco Use Types Packs/Day [...] unspecified documented in this encounter Care Teams Unit Secy Relationship Specialty Start Date End Date Alex Wagoner MD [address] [place] [address] PCP - General 01/01/12 07/31/13 documented as of this encounter
--- OUTSIDE RECORDS SUMMARY | 2024-08-08 19:41 | XMS_ITS | Encounter Summary ---
Author Organization [facility] Address [facility] [place] [address] Care Team Providers Care Tassel Clipper Name Role Phone Yaw Becerra MD Primary Care Provider [phone] Encounter Details Date Type Department Care Team (Latest Contact Info) Description 08/16/2013 9:59 AM EST - 08/16/2013 11:59 PM [facility] Hospital [place] [address] CLINIC, Khadijah Greene MD [facility] [place] [address] Memory changes; Neurobehavioral disorder Discharge Disposition: Home [...] elsewhere documented in this encounter Care Teams Tassel Clipper Relationship Specialty Start Date End Date Yaw Becerra MD [address] [place] [address] PCP - General 08/01/13 02/16/22 documented as of this encounter
--- OUTSIDE RECORDS SUMMARY | 2024-08-08 19:41 | XMS_ITS | Encounter Summary ---
[place] [address] Care Team Providers Care Sales And Marketing Director Name Role Phone Alex Wagoner MD Primary Care Provider [phone] Encounter Details Date Type Department Care Team (Latest Contact Info) Description 01/21/2012 2:31 PM EDT - 01/21/2012 5:30 PM EDT Hospital En[place] [address] Murali Tinoco MD [facility] DR [place] [address] Discharge Disposition: Home Social History Tobacco Use [...] occur please notify your MD. Please call [phone] before 5pm with problems, questions or concerns. After 5 pm call [phone] and ask to speak with the GI fellow education faculty member. Discharge instructions reviewed with patient who expresses understanding. * Attachments The following attachments cannot be sent through Care Everywhere. * ABDOMINAL PAIN: AFTER YOUR CHILD'S VISIT ([place]) * COLONOSCOPY IN CHILDREN: WHAT TO EXPECT AT HOME ([place]) * UPPER GI ENDOSCOPY IN CHILDREN: WHAT TO EXPECT AT HOME ([place]) documented in this encounter Medications at Time [...] 6:20 PM EDT) Surgical Pathology Report ? [facility] ? Provider: ?? EARNEST, ? Pt. Name: ?? CECLEIATOMYSHILO ?MURALI P ? Acc #: ?[id number] ?Pt. ? Col Date: ?? 01/21/2012 ? [...] Slides reviewed, microscopic description not recorded. ? [facility] ? Provider: ?? EARNEST, ? Pt. Name: ?? SHILO JON ?MURALI P ? Acc #: ?[id number] ?Pt. ? Col Date: ?? 01/21/2012 ? [...] - Labeled/Fixativ e: Proximal esophagus, formalin. ? [facility] ? Provider: ?? EARNEST, ? Pt. Name: ?? SHILO JON ?MURALI P ? Acc #: ?[id number] ?Pt. ? Col Date: ?? 01/21/2012 ? [...] YO vomiting, diarrhea, persistent, abdominal pain [facility] 01/21/2012 6:20 PM EDT Murali Tinoco MD PATHOLOGY/CYTOL OGY ORDERABLES Performing Organization Address [facility] Co de Phone Number [facility] * Specimen to Pathology (surgical or derm) (01/21/2012 3:43 PM EDT) AP Specimen 01/21/2012 3:43 PM EDT 01/21/2012 3:43 PM EDT Narrative CERNER MILLENNIUM - 01/21/2012 3:43 PM EDT Specimen requisition ordered. ??Separate Pathology report to follow Murali Tinoco MD PATHOLOGY/CYTOL OGY ORDERABLES Performing Organization Address [facility] Co de Phone Number [facility] * Specimen to Pathology (surgical or derm) (01/21/2012 3:43 PM EDT) AP Specimen 01/21/2012 3:43 PM EDT 01/21/2012 3:43 PM EDT Narrative NICHOLNER SHEYLAIUM - 01/21/2012 3:43 PM EDT Specimen requisition ordered. ??Separate Pathology report to follow Murali Tinoco MD PATHOLOGY/CYTOL OGY ORDERABLES Performing Organization Address [facility] Co de Phone Number ERNEST[facility] * Specimen to Pathology (surgical or derm) (01/21/2012 3:43 PM EDT) AP Specimen 01/21/2012 3:43 PM EDT 01/21/2012 3:43 PM EDT Narrative ERNESTINA CARRIONIUM - 01/21/2012 3:43 PM EDT Specimen requisition ordered. ??Separate Pathology report to follow uMrali Tinoco MD PATHOLOGY/CYTOL OGY ORDERABLES Performing Organization Address [facility] de Phone Number ERNESTINA SAAVED[facility] * Specimen to Pathology (surgical or derm) (01/21/2012 3:43 PM EDT) AP Specimen 01/21/2012 3:43 PM EDT 01/21/2012 3:43 PM EDT Narrative ERNESTINA CARRIONIUM - 01/21/2012 3:43 PM EDT Specimen requisition ordered. ??Separate Pathology report to follow Murali Tinoco MD PATHOLOGY/CYTOL OGY ORDERABLES Performing Organization Address [facility] Co de Phone Number ERNESTINA SAAVED[facility] * Specimen to Pathology (surgical or derm) (01/21/2012 3:43 PM EDT) AP Specimen 01/21/2012 3:43 PM EDT 01/21/2012 3:43 PM EDT Narrative ERNESTINA CARRIONIUM - 01/21/2012 3:43 PM EDT Specimen requisition ordered. ??Separate Pathology report to follow Murali Tinoco MD PATHOLOGY/CYTOL OGY ORDERABLES Performing Organization Address [facility] Co de Phone Number ERNESTINA SAAVEDRA * Specimen to Pathology (surgical or derm) (01/21/2012 3:43 PM EDT) AP Specimen 01/21/2012 3:43 PM EDT 01/21/2012 3:43 PM EDT Narrative ERNESTINA SAAVEDRA - 01/21/2012 3:43 PM EDT Specimen requisition ordered. ??Separate Pathology report to follow Murali Tinoco MD PATHOLOGY/CYTOL OGY ORDERABLES Performing Organization Address [facility] de Phone Number ERNESTINA SAAVED[facility] * Specimen to Pathology (surgical or derm) (01/21/2012 3:43 PM EDT) AP Specimen 01/21/2012 3:43 PM EDT 01/21/2012 3:43 PM EDT Narrative ERNESTINA SAAVEDRA - 01/21/2012 3:43 PM EDT Specimen requisition ordered. ??Separate Pathology report to follow Murali Tinoco MD PATHOLOGY/CYTOL OGY ORDERABLES Performing Organization Address [facility] de Phone Number ERNESTINA SAAVEDRA * Specimen to Pathology (surgical or derm) (01/21/2012 3:43 PM EDT) AP Specimen 01/21/2012 3:43 PM EDT 01/21/2012 3:43 PM EDT Narrative ERNESTINA SAAVEDRA - 01/21/2012 3:43 PM EDT Specimen requisition ordered. ??Separate Pathology report to follow Murali Tinoco MD PATHOLOGY/CYTOL OGY ORDERABLES Performing Organization Address [facility] de Phone Number ERNESTINA SAAVEDRA [...] within the normal ranges. Test performed by [facility], [address] [place] [address] Specimen from unspecified body site obtained by biopsy (specimen) 01/21/2012 3:30 PM EDT 01/21/2012 4:26 PM EDT Narrative Resulting Agency Comment Spec In Lab Murali Tinoco MD LAB SEND OUT OR DERABLES Performing Organization Address City/State/[facility] Co mo Phone Number [facility] * PEDIATRIC UPPER GI ENDOSCOPY (01/21/2012 3:14 PM EDT) Pediatric Upper Gi Endo [facility] Endoscopy Patient Name: Shilo Jon ? Procedure Date: 01/21/2012 3:14 PM ? Date of : 1995 ? Age: 16 ? Order #: [id number] ? Procedure: ? Pediatric Upper GI Endoscopy Indications: ? persistent abdominal pain, vomiting, ? and diarrhea Providers: ? Murali Tinoco MD, Marvin Hill ? , RN, Ana Martines, Lead Network Engineer Referring MD: ?Alex Wagoner MD Medicines: ? [...] COLONOSCOPY (01/21/2012 3:13 PM EDT) Pediatric Colonoscopy [facility] Endoscopy Patient Name: Shilo Jon ? Procedure Date: 01/21/2012 3:13 PM ? Date of : 1995 ? Age: 16 ? Order #: [id number] ? Procedure: ? Pediatric Colonoscopy Indications: ? persistent abdominal pain, vomiting, ? and diarrhea. Providers: ? Murali Tinoco MD, Marvin Hill ? , RN, Ana Martines, Lead Network Engineer Referring MD: ?Alex Wagoner MD Medicines: ? [...] RN) documented in this encounter Care Teams Sales And Marketing Director Relationship Specialty Start Date End Date Alex Wagoner MD [address] [place] [address] PCP - General 01/01/12 07/31/13 documented as of this encounter
--- OUTSIDE RECORDS SUMMARY | 2024-08-08 19:41 | XMS_ITS | Encounter Summary ---
Author Organization [facility] Address [address] [place] [address] Care Team Providers Care Chief Of Anesthesiology Name Role Phone Unknown, Provider Primary Care Provider Unava ilable Encounter Details Date Type Department Care Team (Late st Contact Info) Description 01/17/2020 Lab Requisition [facility] Pathology & [place] [address] Unknown, Provider, Social History Tobacco Use Types [...] gonorrhoeae Result Negative Negative 01/19/2020 12:51 EDT [facility] Chlamydia trachomatis Result Negative Negative 01/19/2020 12:51 EDT [facility] Swab ENTIRE WALL OF CERVIX / Unknown 01/17/2020 10:30 EDT 01/17/2020 17:18 EDT Provider Unknown MICROBIOLOGY - GENER AL ORDERABLES [facility] [address] [place] [address] documented in this encounter Visit Diagnoses Not on filedocumented in this encounter Care Teams Chief Of Anesthesiology Relationship Specialty Start Date End Date Unknown, Provider, PCP - General 09/03/15 documented as of this encounter
--- OUTSIDE RECORDS SUMMARY | 2024-08-08 19:41 | XMS_ITS | Encounter Summary ---
Author Organization [facility] [place] [address] Care Team Providers Care Supervisor Ski Production Name Role Phone Alex Wagoner MD Primary Care Provider [phone] Encounter Details Date Type Department Care Team (Late st Contact Info) Description 01/21/2012 3:15 PM EDT - 01/21/2012 4:15 PM EDT Surgery [place] [address] Murali Tinoco MD [facility] PEDIATRIC [place] [address] PEDIATRIC COLONOSCOPY (WRVU 3.26) Social History Tobacco [...] occur please notify your MD. Please call [phone] before 5pm with problems, questions or concerns. After 5 pm call [phone] and ask to speak with the GI fellow verification clerk. Discharge instructions reviewed with patient who expresses understanding. * Attachments The following attachments cannot be sent through Care Everywhere. * ABDOMINAL PAIN: AFTER YOUR CHILD'S VISIT ([place]) * COLONOSCOPY IN CHILDREN: WHAT TO EXPECT AT HOME ([place]) * UPPER GI ENDOSCOPY IN CHILDREN: WHAT TO EXPECT AT HOME ([place]) documented in this encounter Medications at Time [...] 6:20 PM EDT) Surgical Pathology Report ? [facility] ? Provider: ?? EARNEST, ? Pt. Name: ?? SHILO JON ?MURALI P ? Acc #: ?[id number] ?Pt. ? Col Date: ?? 01/21/2012 ? [...] Slides reviewed, microscopic description not recorded. ? [facility] ? Provider: ?? EARNEST, ? Pt. Name: ?? SHILO JON ?MURALI P ? Acc #: ?[id number] ?Pt. ? Col Date: ?? 01/21/2012 ? [...] - Labeled/Fixativ e: Proximal esophagus, formalin. ? [facility] ? Provider: ?? EARNEST, ? Pt. Name: ?? SHILO JON ?MURALI Moss ? Acc #: ?[id number] ?Pt. ? Col Date: ?? 01/21/2012 ? [...] MD PATHOLOGY/CYTOL OGY ORDERABLES Performing Organization Address [facility] Co de Phone Number [facility] * Specimen to Pathology (surgical or derm) (01/21/2012 3:43 PM EDT) AP Specimen 01/21/2012 3:43 PM EDT 01/21/2012 3:43 PM EDT Narrative CERNER MILLENNIUM - 01/21/2012 3:43 PM EDT Specimen requisition ordered. ??Separate Pathology report to follow Murali Tinoco MD PATHOLOGY/CYTOL [place] ORDERABLES Performing Organization Address [facility] Co de Phone Number [facility] * Specimen to Pathology (surgical or derm) (01/21/2012 3:43 PM EDT) AP Specimen 01/21/2012 3:43 PM EDT 01/21/2012 3:43 PM EDT Narrative ERNESTINA CARRIONIUM - 01/21/2012 3:43 PM EDT Specimen requisition ordered. ??Separate Pathology report to follow Murali Tinoco MD PATHOLOGY/CYTOL OGY ORDERABLES Performing Organization Address [facility] Co de Phone Number ERNESTINA SAAVEDRA * Specimen to Pathology (surgical or derm) (01/21/2012 3:43 PM EDT) AP Specimen 01/21/2012 3:43 PM EDT 01/21/2012 3:43 PM EDT Narrative ERNESTINA CARRIONIUM - 01/21/2012 3:43 PM EDT Specimen requisition ordered. ??Separate Pathology report to follow Murali Tinoco MD PATHOLOGY/CYTOL OGY ORDERABLES Performing Organization Address [facility] de Phone Number ERNESTINA SAAVEDRA * Specimen to Pathology (surgical or derm) (01/21/2012 3:43 PM EDT) AP Specimen 01/21/2012 3:43 PM EDT 01/21/2012 3:43 PM EDT Narrative ERNESTINA CARRIONIUM - 01/21/2012 3:43 PM EDT Specimen requisition ordered. ??Separate Pathology report to follow Murali Tinoco MD PATHOLOGY/CYTOL OGY ORDERABLES Performing Organization Address [facility] Co de Phone Number ERNESTINA SAAVEDRA * Specimen to Pathology (surgical or derm) (01/21/2012 3:43 PM EDT) AP Specimen 01/21/2012 3:43 PM EDT 01/21/2012 3:43 PM EDT Narrative ERNESTINA CARRIONIUM - 01/21/2012 3:43 PM EDT Specimen requisition ordered. ??Separate Pathology report to follow Murali Tinoco MD PATHOLOGY/CYTOL OGY ORDERABLES Performing Organization Address [facility] Co de Phone Number ERNESTINA SAAVEDRA * Specimen to Pathology (surgical or derm) (01/21/2012 3:43 PM EDT) AP Specimen 01/21/2012 3:43 PM EDT 01/21/2012 3:43 PM EDT Narrative ERNESTINA SAAVEDRA - 01/21/2012 3:43 PM EDT Specimen requisition ordered. ??Separate Pathology report to follow Murali Tinoco MD PATHOLOGY/CYTOL OGY ORDERABLES Performing Organization Address [facility] de Phone Number ERNESTINA SAAVEDRA * Specimen to Pathology (surgical or derm) (01/21/2012 3:43 PM EDT) AP Specimen 01/21/2012 3:43 PM EDT 01/21/2012 3:43 PM EDT Narrative ERNESTINA SAAVEDRA - 01/21/2012 3:43 PM EDT Specimen requisition ordered. ??Separate Pathology report to follow Murali Tinoco MD PATHOLOGY/CYTOL OGY ORDERABLES Performing Organization Address [facility] de Phone Number ERNESTINA SAAVEDRA * Specimen to Pathology (surgical or derm) (01/21/2012 3:43 PM EDT) AP Specimen 01/21/2012 3:43 PM EDT 01/21/2012 3:43 PM EDT Narrative ERNESTINA SAAVEDRA - 01/21/2012 3:43 PM EDT Specimen requisition ordered. ??Separate Pathology report to follow Murali Tinoco MD PATHOLOGY/CYTOL OGY ORDERABLES Performing Organization Address [facility] de Phone Number ERNESTINA SAAVEDRA * Disaccharidase Panel, Biopsy (01/21/2012 3:30 PM EDT) Disaccharidase Biopsy (UMD) See Note [facility] Comment: Disaccharidase Panel and Glucoamylase ? Patient [...] within the normal ranges. Test performed by [facility], [address] [place] [address] Specimen from unspecified body site obtained by biopsy (specimen) 01/21/2012 3:30 PM EDT 01/21/2012 4:26 PM EDT Narrative Resulting Agency Comment Spec In Lab Murali Tinoco MD LAB SEND OUT OR DERABLES CERNER MILLENNIUM * PEDIATRIC UPPER GI ENDOSCOPY (01/21/2012 3:14 PM EDT) Pediatric Upper Gi Endo [facility] Endoscopy Patient Name: Shilo Jon ? Procedure Date: 01/21/2012 3:14 PM ? Date of : 1995 ? Age: 16 ? Order #: [id number] ? Procedure: ? Pediatric Upper GI Endoscopy Indications: ? persistent abdominal pain, vomiting, ? and diarrhea Providers: ? Murali Tinoco MD, Marvin Hill ? , RN, Ana Martines, Frame Trimmer Referring MD: ?Alex Wagoner MD Medicines: ? [...] COLONOSCOPY (01/21/2012 3:13 PM EDT) Pediatric Colonoscopy [facility] Endoscopy Patient Name: Shilo Jon ? Procedure Date: 01/21/2012 3:13 PM ? Date of : 1995 ? Age: 16 ? Order #: [id number] ? Procedure: ? Pediatric Colonoscopy Indications: ? persistent abdominal pain, vomiting, ? and diarrhea. Providers: ? Murali Tinoco MD, Marvin Hill ? , NIKIA, Ana Martines, Frame Trimmer Referring MD: ?Alex Wagoner MD Medicines: ? [...] RN) documented in this encounter Care Teams Supervisor Ski Production Relationship Specialty Start Date End Date Aelx Wagoner MD [address] [place] [address] PCP - General 01/01/12 07/31/13 documented as of this encounter
--- OUTSIDE RECORDS SUMMARY | 2024-08-08 19:41 | XMS_ITS | Encounter Summary ---
Author Organization [facility] Address [address] [place] [address] Care Team Providers Care Diagnostic Radiologic Technologist Name Role Phone Unavailable Primary Care Provider Unavailabl e Encounter Details Date Type Department Care Team (Latest Contact Info) Description 08/25/2015 13:21 EST - 08/25/2015 23:59 EST Hospital Encounter [facility] [address] [place] [address] Unknown, Provider, MD Discharge Disposition: Home or Self Care Social History Tobacco Use Types Packs/Day Years Used Date Smoking Tobacco: Never Assessed Sex and Gender Information Value Date Recorded Sex Assigned at Not on file Gender Identity Not on file Sexual Orientation Not on file documented as of this encounter Discharge Disposition Disposition Code Departure Means Destination Home or Self Prison documented in this encounter Plan of Treatment Not on file documented as of this encounter Visit Diagnoses Not on filedocumented in this encounter
--- OUTSIDE RECORDS SUMMARY | 2024-08-08 19:41 | XMS_ITS | Encounter Summary ---
Author Organization [facility] Address [address] [place] [address] Care Team Providers Care Instructor Private Name Role Phone Unknown, Provider MD Primary Care Provider Unava ilable Encounter Details Date Type Department Care Team (Late st Contact Info) Description 10/05/2019 Lab Requisition [facility] Pathology & [place] [address] Unknown, Provider, Social History Tobacco Use Types [...] 4th Generation Negative Negative 10/06/2019 10:11 EST [facility] Comment: If acute HIV-1 infection is suspected in a high risk ??patient, submit plasma specimen for HIV-1 RNA quantitation test. Fourth Generation assay performed on the Siemens Centaur. Blood VENOUS BLOOD / Unknown 10/05/2019 8:40 EST 10/05/2019 21:06 EST Provider Unknown IMMUNOLOGY AND SEROL OGKaz ORDERABLES [facility] [address] [place] [address] documented in this encounter Visit Diagnoses Not on filedocumented in this encounter Care Teams Instructor Private Relationship Specialty Start Date End Date Unknown, Provider, PCP - General 09/03/15 documented as of this encounter
--- OUTSIDE RECORDS SUMMARY | 2024-08-08 19:41 | XMS_ITS | Encounter Summary ---
Author Organization [facility] Address [address] [place] [address] Care Team Providers Care Complementary Health Therapists Name Role Phone Unknown, Provider Primary Care Provider Unava ilable Encounter Details Date Type Department Care Team (Late st Contact Info) Description 12/08/2018 Results Only [facility] [phone] Rob Vitale, READING RECOVERY TEACHER [address] [place] [id number] Social History Tobacco Use Types Packs/Day Years [...] ? NIMISHA JON ? Accession #: ? [id number] : ? 1995 (Age: 23) ??F ?Collect [...] Report Date: ??12/13/2018 10:33 End of Report [facility] 12/08/2018 12/09/2018 Rob Vitale APRN PATHOLOGY ORDERAB LES [facility] [address] [place] [address] documented in this encounter Visit Diagnoses Not on filedocumented in this encounter Care Teams Complementary Health Therapists Relationship Specialty Start Date End Date Unknown, Provider, PCP - General 09/03/15 documented as of this encounter
--- OUTSIDE RECORDS SUMMARY | 2024-08-08 19:41 | XMS_ITS | Clinical Summary ---
Author Organization [facility] Address [address] [place] [address] Care Team Providers Care Lock Stitch Channeler Name Role Phone Unknown, Provider Primary Care Provider Unava ilable Social History Tobacco Use Types Packs/Day Years [...] - 19+ 3-dose series) 06/19 COVID-19 Vaccine ( season) 2024 Care Teams Lock Stitch Channeler Relationship Specialty Start Date End Date Unknown, Provider, PCP - General 09/03/15
--- OUTSIDE RECORDS SUMMARY | 2024-08-08 19:41 | XMS_ITS | Encounter Summary ---
Author Organization [facility] [place] [address] Care Team Providers Care Looseleaf Binder Coverer Name Role Phone Humberto Marquis MD Primary Care Provider [phone] Reason for Visit * Reason Comments Memory Loss Encounter Details Date Type Department Care Team (Latest Contact Info) Description 08/03/2013 12:45 PM EDT Office [place] [address] Khadijah Moon MD [facility] [place] [address] Neurobehavioral disorder (Primary Dx); Memory changes; Spells; [...] 08/03/2013 1:0 4 PM EDT Growth Chart: [facility] (Girls, 2- 20 Years) documented in this [...] She was hospitalized for prolonged period at [facility], had septic shock, three episodes of cardiopulmonary [...] medical history indicates she was a full-term infant without difficulty. Growth and development proceeded normally. She was hospitalized overnight for the meningococcal meningitis and also at [facility] for psychiatric reasons. SHE HAS NO ALLERGIES [...] Referring Provider: [place] [address] Hours of Sleep: 2 ??P.C.: 8AM Sleep Deprived: Y ??Location: Date of Study: 08/16/13 ??Tech: SR Patient History: Behavioral problems. Sleep: Obtained Photic Driving: Y Hyperventillation: Y ? If Hyperventillated ??Effort Given: P [facility] Department of Neurology EEG REPORT Patient: ??Nimisha Olivo ??[id number] Date of Recordin08/16/13 Interpreting Physician: Dr. Konstantin [...] channel digitized electroencephalogram was performed in the [facility] Clinical Neurophysiology Laboratory. The 10/20 international [...] advised. Mary Ferguson MD Neurophysiology Fellow Pager [phone] NEURO ATTENDING EEG NOTE: ?? I attest [...] [address] / [place] [address] Procedure Note Konstantin Harris MD - 08/16/2013 9:47 AM EST Name:Nimisha Olivo Test #: 13 - [id number] Age: 18 y.o. Referring Provider: Humberto Marquis MD [address] [place] [address] Hours of Sleep: 2 P.C.: 8AM Sleep Deprived: Y Location: OP Date of Study: 08/16/13 Tech: SR Patient History: Behavioral problems. Sleep: Obtained Photic Driving: Y Hyperventillation: Y If Hyperventillated Effort Given: P [facility] Department of Neurology EEG REPORT Patient: Nimisha Olivo [id number] Date of Recordin08/16/13 Interpreting Physician: Dr. Konstantin [...] digitized electroencephalogram was performed in the [facility] Clinical Neurophysiology Laboratory. The 10/20 internationalsystem [...] advised. Mary Ferguson MD Neurophysiology Fellow Pager [phone] NEURO ATTENDING EEG NOTE: I attest that I have read the entire EEGrecord, completely; reviewed it with the Neurology Fellow Dr. Ferguson;directed the composition of the above report; and concur with thedocumentation. If suspicion for seizure persists, the sensitivity of thetest may be increased by obtaining a prolonged sleep recording. Gustabo Harris MD Copy HUMBERTO MARQUIS MD [address] [place] [address] / [facility] [id number] Khadijah Moon MD NEUROLOGY ORDERABLES documented in [...] site documented in this encounter Care Teams Looseleaf Binder Coverer Relationship Specialty Start Date End Date Humberto Marquis MD [address] [place] [address] PCP - General 08/01/13 02/16/22 documented as of this encounter
--- OUTSIDE RECORDS SUMMARY | 2024-08-08 19:41 | XMS_ITS | Encounter Summary ---
[place] [address] Care Team Providers Care Cna Per Diem Name Role Phone Yaw Becerra MD Primary Care Provider [phone] Reason for Visit * Reason Onset Date Comments Results 08/17/2013 MRI Encounter Details Date Type Department Care Team (Late st Contact Info) Description 08/17/2013 Telephone [place] [phone] Karen Strauss, RN Results (MRI) Social History [...] on filedocumented in this encounter Care Teams Cna Per Diem Relationship Specialty Start Date End Date Yaw Becerra MD [address] [place] [address] PCP - General 08/01/13 02/16/22 documented as of this encounter
--- OUTSIDE RECORDS SUMMARY | 2024-08-08 19:41 | XMS_ITS | Referral Summary ---
Author Organization [facility] Address [address] [place] [address] Care Team Providers Care Tractor Engine Mechanic Name Role Phone Unknown, Provider MD Primary Care Provider Unava ilable Social History [...] of Treatment Not on file Care Teams Tractor Engine Mechanic Relationship Specialty Start Date End Date Unknown, Provider, PCP - General 09/03/15
--- OUTSIDE RECORDS SUMMARY | 2024-08-08 19:41 | XMS_ITS | Encounter Summary ---
Author Organization [facility] Address [address] [place] [address] Care Team Providers Care Chronic Manager Name Role Phone Unknown, Provider Primary Care Provider Unava ilable Encounter Details Date Type Department Care Team (Late st Contact Info) Description 11/26/2020 Lab Requisition [facility] Pathology & Laboratory Medicine - [facility] [address] [place] [address] Outr Resulting Lab, Provider Social History Tobacco [...] Priority Date/Time Associated Diagnosis Comments ZZCOVID-19 TEST [facility] LAB PCR Today 11/25/2020 14:45 EST COVID-19 TESTING Routine 11/25/2020 14:4 5 EST documented in this encounter Results * COVID-19 TEST [facility] LAB PCR (11/25/2020 14:45 EST) Swab ENTIRE NASOPHARYNX / Unknown 11/25/2020 14:45 EST 11/26/2020 16:18 EST Provider Outr Resulting Lab MICROBIOLOGY - GENERAL ORDERABLES [facility] [address] [place] [address] * COVID-19 TESTING (11/25/2020 14:45 EST) COVID-19 rt-PCR Result Negative Negative 11/28/2020 14:18 EST [facility] Comment:This is an appended report. These results have been appended to a previously preliminary verified report. Performing Lab [place] [facility] Lab 11/28/2020 14:18 EST [facility] Comment:This is an updated r esult. Previous result was [facility] on 11/27/2020 at 1249 EST Swab 11/25/2020 14:4 5 EST 11/26/2020 16:18 EST Provider Outr Resulting Lab MICROBIOLOGY - GENERAL ORDERABLES [facility] [address] [place] [address] documented in this encounter Visit Diagnoses Not on filedocumented in this encounter Care Teams Chronic Manager Relationship Specialty Start Date End Date Unknown, Provider, PCP - General 09/03/15 documented as of this encounter
--- OUTSIDE RECORDS SUMMARY | 2024-08-08 19:41 | XMS_ITS | Encounter Summary ---
[place] [address] Care Team Providers Care Slitter Cut Off Operator Name Role Phone Yaw Becerra MD Primary Care Provider [phone] Encounter Details Date Type Department Care Team (Late st Contact Info) Description 02/07/2021 2:00 PM EDT Notes [place] [address] Social History Tobacco Use Types Packs/Day Years [...] Fabiola Kim - 02/07/2021 2:00 PM EDTSummary: [facility]- B[facility] Patient attended the Intro to B[facility]ric [facility] for [facility] program on 02/07/2021 documented in this encounter Plan of Treatment Not on file documented as of this encounter Visit Diagnoses Not on filedocumented in this encounter Care Teams Slitter Cut Off Operator Relationship Specialty Start Date End Date Yaw Becerra MD [address] [place] [address] PCP - General 08/01/13 02/16/22 documented as of this encounter
--- OUTSIDE RECORDS SUMMARY | 2024-08-08 19:41 | XMS_ITS | Encounter Summary ---
Author Organization [facility] Address [address] [place] [address] Care Team Providers Care Plane Captain Name Role Phone Unknown, Provider Primary Care Provider Unava ilable Encounter Details Date Type Department Care Team (Late st Contact Info) Description 08/25/2015 Historical Results Only [facility] [place] Radiology Results [address] [place], [place] [address] Amrita Comer PA [address] [place], [place] [id number] Social History Tobacco Use Types Packs/Day Years [...] lumbar ? ligaments; Additional info: Fell onto [facility] exam id and ? description: Ls [...] MD ? CC: ? Transcribed Date/Time: 08/25/2015 (8663) ? Probation Supervisor: ? Printed Date/Time: 03/15/2019 (1132) ? PAGE 1 ? Signed Report ? Procedure Note Oliver Bustamante T - 08/09/2019 EXAM: RADIOLOGY/LUMBAR SPINE 2 OR 3 VIEWS EX. D/ (1724) CLINICAL INFORMATION: FELL ONTO MOBILE EXAM: XR Lumbar Spine, 2 or 3 Views. CLINICAL HISTORY: The patient is a 20 years old, female; Injury or trauma; Initial encounter; Contusion and sprain or strain, lumbar ligaments; Additional info: Fell onto [facility] exam id and description: Ls lumbar [...] Oliver Bustamante MD CC: Transcribed Date/Time: 08/25/2015 (8139) Probation Supervisor: Printed Date/Time: 03/15/2019 (8106) PAGE 1 Signed Report Amrita PETERSON IMPoonam DIAGNOSTIC IMAGI NG ORDERABLES documented in this encounter Visit Diagnoses Not on filedocumented in this encounter Care Teams Plane Captain Relationship Specialty Start Date End Date Unknown, Provider, PCP - General 09/03/15 documented as of this encounter
--- OUTSIDE RECORDS SUMMARY | 2024-08-08 19:41 | XMS_ITS | Encounter Summary ---
[place] [address] Care Team Providers Care Guide Alpine Name Role Phone Humberto Marquis MD Primary Care Provider [phone] Reason for Visit * Reason Comments Procedure OP EEG Encounter Details Date Type Department Care Team (Latest Contact Info) Description 08/16/2013 8:30 AM EST Procedure [place] [address] CLINIC, Humberto Wright MD [address] [place] [address] [place], [place] [id number] Memory changes; Neurobehavioral disorder; Diarrhea; Nausea; Behavior [...] Harris MD - 08/17/2013 12:53 PM EST [facility] Department of Neurology EEG REPORT Patient: Nimisha Olivo [id number] Date of Recordin08/16/13 Interpreting Physician: Dr. Konstantin [...] channel digitized electroencephalogram was performed in the [facility] Clinical Neurophysiology Laboratory. The 10/20 international system [...] advised. Mary Ferguson MD Neurophysiology Fellow Pager [phone] NEURO ATTENDING EEG NOTE: I attest that I have read the entire EEG record, completely; reviewed it with the Neurology Fellow Dr. Ferguson; directed the composition of the above report; and concur with the documentation. If suspicion for seizure persists, the sensitivity of the test may be increased by obtaining a prolonged sleep recording. Gustabo Harris MD Copy HUMBERTO MARQUIS MD [address] [place], [place] [address] [facility] [address] documented in this encounter Progress Notes * Konstantin Harris MD - 08/17/2013 12:53 PM EST [facility] Department of Neurology EEG REPORT Patient: Nimisha Olivo [id number] Date of Recordin08/16/13 Interpreting Physician: Dr. Konstantin [...] channel digitized electroencephalogram was performed in the [facility] Clinical Neurophysiology Laboratory. The 10/20 international system [...] advised. Mary Ferguson MD Neurophysiology Fellow Pager [phone] NEURO ATTENDING EEG NOTE: I attest that [...] MD [address] / [place] [address] documented in this encounter Procedure Notes * Konstantin Harris MD - 08/16/2013 9:47 AM ESTAssociated Order(s): EEG AWAKE OR ASLEEP Procedure(s): EEG INNC. RECORDING AWAKE AND ASLEEP, W. HYPERVENT/PHOTIC STIMU PRFM Pre-Procedure Diagnose(s): Memory changes; Neurobehavioral disorder; Spells Post-Procedure Diagnose(s): Memory changes; Neurobehavioral disorder; Spells Name:Nimisha Olivo Test #: 13 - 2110 Age: 18 y.o. Referring Provider: Humberto Marquis MD [address] [place] [address] Hours of Sleep: 2 P.C.: 8AM Sleep Deprived: Y Location: OP Date of Study: 08/16/13 Tech: SR Patient History: Behavioral problems. Sleep: Obtained Photic Driving: Y Hyperventillation: Y If Hyperventillated Effort Given: P [facility] Department of Neurology EEG REPORT Patient: Nimisha Olivo [id number] Date of Recordin08/16/13 Interpreting Physician: Dr. Konstantin [...] channel digitized electroencephalogram was performed in the [facility] Clinical Neurophysiology Laboratory. The 10/20 international system [...] advised. Mary Ferguson MD Neurophysiology Fellow Pager [phone] NEURO ATTENDING EEG NOTE: I attest that [...] MD [address] [place] [address] documented in this encounter Plan of Treatment [...] MD [address] [place] [address] Hours of Sleep: 2 ??P.C.: 8AM Sleep Deprived: Y ??Location: Date of Study: 08/16/13 ??Tech: SR Patient History: Behavioral problems. Sleep: Obtained Photic Driving: Y Hyperventillation: Y ? If Hyperventillated ??Effort Given: P [facility] Department of Neurology EEG REPORT Patient: ??Nimisha Olivo ??[id number] Date of Recordin08/16/13 Interpreting Physician: Dr. Konstantin [...] channel digitized electroencephalogram was performed in the [facility] Clinical Neurophysiology Laboratory. The 10/20 international system [...] advised. Mary Ferguson MD Neurophysiology Fellow Pager [phone] NEURO ATTENDING EEG NOTE: ?? I attest [...] [address] / [place] [address] Procedure Note Konstantin Harris MD - 08/16/2013 9:47 AM EST Name:Nimisha Olivo Test #: 13 - 2110 Age: 18 y.o. Referring Provider: Humberto Marquis MD [address] [place] [address] Hours of Sleep: 2 P.C.: 8AM Sleep Deprived: Y Location: OP Date of Study: 08/16/13 Tech: SR Patient History: Behavioral problems. Sleep: Obtained Photic Driving: Y Hyperventillation: Y If Hyperventillated Effort Given: P [facility] Department of Neurology EEG REPORT Patient: Nimisha Olivo [id number] Date of Recordin08/16/13 Interpreting Physician: Dr. Konstantin [...] channel digitized electroencephalogram was performed in the [facility] Clinical Neurophysiology Laboratory. The 10/20 internationalsystem of [...] advised. Mary Ferguson MD Neurophysiology Fellow Pager [phone] NEURO ATTENDING EEG NOTE: I attest that I have read the entire EEGrecord, completely; reviewed it with the Neurology Fellow Dr. Ferguson;directed the composition of the above report; and concur with thedocumentation. If suspicion for seizure persists, the sensitivity of thetest may be increased by obtaining a prolonged sleep recording. Gustabo Harris MD Copy HUMBERTO MARQUIS MD [address] / [place] [address] Khadijah Moon MD NEUROLOGY ORDERABLES documented in [...] site documented in this encounter Care Teams Guide Alpine Relationship Specialty Start Date End Date Humberto Marquis MD [address] [place] [address] PCP - General 08/01/13 02/16/22 documented as of this encounter
--- OUTSIDE RECORDS SUMMARY | 2024-08-08 19:41 | XMS_ITS | Encounter Summary ---
Author Organization [facility] [place] [address] Care Team Providers Care Clinical Team Lead Name Role Phone Yaw Becerra MD Primary Care Provider [phone] Reason for Visit * Reason Comments Follow-up Encounter Details Date Type Department Care Team (Latest Contact Info) Description 08/29/2013 9:15 AM EST Office [place] [address] Khadijah Moon MD [facility] [place] [address] Spells; Behavior disorder; History of meningococcal meningitis; [...] 08/29/2013 9:2 2 AM EST Growth Chart: [facility] (Girls, 2- 20 Years) documented in [...] lump documented in this encounter Care Teams Clinical Team Lead Relationship Specialty Start Date End Date Yaw Becerra MD [address] [place] [address] PCP - General 08/01/13 02/16/22 documented as of this encounter
--- OUTSIDE RECORDS SUMMARY | 2024-08-08 19:41 | XMS_ITS | Encounter Summary ---
[place] [address] Care Team Providers Care Field Pipelines Supervisor Name Role Phone Alex Wagoner MD Primary Care Provider [phone] Encounter Details Date Type Department Care Team (Late st Contact Info) Description 01/21/2012 3:15 PM EDT Anesthesia [place] [address] Pricilla Baxter MD [facility] [place] [address] Gabi Sanchez CRNA [facility] [place] [address] Anesthesia Record Procedure Summary Procedure Name Responsible [...] with patient and mother. Plan discussed with FILLER SIFTER HELPER. documented in this encounter Miscellaneous Notes * Addendum Note - Leta Melo - 01/22/2012 11:16 AM EDT Addendum created 01/22/12 1116 by Leta Melo Modules edited:Anesthesia Events, Anesthesia Responsible Staff documented in this encounter Plan of Treatment Not on file documented as of this encounter Visit Diagnoses Not on filedocumented in this encounter Care Teams Field Pipelines Supervisor Relationship Specialty Start Date End Date Alex Wagoner MD [address] [place] [address] PCP - General 01/01/12 07/31/13 documented as of this encounter
--- OUTSIDE RECORDS SUMMARY | 2024-08-08 19:42 | XMS_ITS | Encounter Summary ---
[place] [address] Care Team Providers Care Church Organist Name Role Phone Alex Wagoner MD Primary Care Provider [phone] Reason for Visit * Reason Onset Date Comments Follow-up 01/04/2012 Encounter Details Date Type Department Care Team (Late st Contact Info) Description 01/04/2012 Telephone Pediatric [place] [address] Raine Jeffries MD [facility] DR PEDIATR[place] [address] Follow-up Social History Tobacco Use Types Packs/Day [...] on filedocumented in this encounter Care Teams Church Organist Relationship Specialty Start Date End Date Alex Wagoner MD [address] [place] [address] PCP - General 01/01/12 07/31/13 documented as of this encounter
--- OUTSIDE RECORDS SUMMARY | 2024-08-08 19:42 | XMS_ITS | Encounter Summary ---
Author Organization [facility] Address [facility] [place] [address] Care Team Providers Care Commercial Sewing Instructor Name Role Phone Alex Wagoner MD Primary Care Provider [phone] Encounter Details Date Type Department Care Team (Latest Contact Info) Description 01/01/2012 10:45 AM EDT - 01/01/2012 11:59 PM EDT Hospital Encounter XRay at [address] [place] [address] CLINIC, Raine Casey MD [facility] [place]ATR[place] [address] Nausea; Diarrhea Discharge Disposition: Home Social History [...] Diarrhea documented in this encounter Care Teams Commercial Sewing Instructor Relationship Specialty Start Date End Date Alex Wagoner MD [address] [place] [address] PCP - General 01/01/12 07/31/13 documented as of this encounter
--- OUTSIDE RECORDS SUMMARY | 2024-08-08 19:42 | XMS_ITS | Encounter Summary ---
[place] [address] Care Team Providers Care Online Marketing Director Name Role Phone Alex Wagoner MD Primary Care Provider [phone] Reason for Visit * Reason Comments Emesis x 3 weeks Abdominal Pain right sided Encounter Details Date Type Department Care Team (Latest Contact Info) Description 01/01/2012 10:00 AM EDT Office Visit Pediatric [place] [address] Raine Jeffries MD [facility] [place] [address] Vomiting (Primary Dx); Nausea; Diarrhea; Abdominal pain [...] up appointment in ___8__ weeks. Pediatric Gastroenterology [phone] Shantell Singh, RN Nurse Coordinator [phone] documented in this encounter Progress Notes * Raine Jeffries MD - 01/01/2012 10:35 AM EDT 01/01/12 It was my pleasure to consult on and examine Nimisha Olivo at the [facility] at the request of [...] Depression-dx at 16yr Obesity Hospitalized-12/22/11-dehydration [facility] to [facility]ation [...] oz). 99.09% of growth percentile based on zcokub-gze-phj. 8.50% of growth percentile based on mdzkrzv-zsp-rnh. Body mass index is 40.78 kg/(m^2). 99.45% [...] ES * IgA (01/01/2012 10:52 AM EDT) [facility] IgA 245 47 - 249 mg/dL [facility] Blood specimen (specimen) 01/01/2012 10:52 AM EDT 01/01/2012 11:00 AM EDT Narrative Resulting Agency Comment Spec In Lab Raine Jeffries MD CHEMISTRY ORDER KOFI Performing Organization Address [facility] de Phone Number [facility] * Tissue transglutaminase, IgA (01/01/2012 10:52 AM EDT) Pathologist [facility] TTG IgA Ab <4.0 <=3.9 u/ml [facility] Comment: Result Interpretation: Negative: ?<4 U/mL [...] MD CHEMISTRY ORDER KOFI Performing Organization Address City/[facility]/ZIP Co de Phone Number ERNESTINA SAAVEDRA * T4, free (01/01/2012 10:52 AM EDT) Free T4 1.06 0.90 - 1.60 ng/dL [facility]ST[facility] SAAVED[facility] Blood specimen (specimen) 01/01/2012 10:52 AM EDT 01/01/2012 11:00 AM EDT Narrative Resulting Agency Comment Spec In Lab Raine Jeffries MD CHEMISTRY ORDER KOFI Performing Organization Address City/[facility] [[email or web address]] Co de Phone Number ERNESTINA SAAVEDRA documented in this encounter Visit Diagnoses Diagnosis Vomiting- Primary Vomiting alone Nausea Nausea alone Diarrhea Abdominal pain Abdominal pain, unspecified site Nausea Nausea alone Diarrhea documented in this encounter Care Teams Online Marketing Director Relationship Specialty Start Date End Date Alex Wagoner MD [address] [place] [address] PCP - General 01/01/12 07/31/13 documented as of this encounter
--- OUTSIDE RECORDS SUMMARY | 2024-08-08 19:42 | XMS_ITS | Encounter Summary ---
Author Organization [facility] [place] [address] Care Team Providers Care Deputy Program Manager Name Role Phone Alex Wagoner MD Primary Care Provider [phone] Reason for Visit * Reason Onset Date Comments Results 01/13/2012 Encounter Details Date Type Department Care Team (Late st Contact Info) Description 01/13/2012 Telephone Pediatric [place] [address] Murali Tinoco MD [facility] DR PEDIATRIC [place] [address] Results Social History Tobacco Use Types Packs/Day [...] on filedocumented in this encounter Care Teams Deputy Program Manager Relationship Specialty Start Date End Date Alex Wagoner MD [address] [place] [address] PCP - General 01/01/12 07/31/13 documented as of this encounter
--- OUTSIDE RECORDS SUMMARY | 2024-08-08 19:42 | XMS_ITS | Encounter Summary ---
Author Organization [facility] [place] [address] Care Team Providers Care Liner Machine Operator Name Role Phone Alex Wagoner MD Primary Care Provider [phone] Encounter Details Date Type Department Care Team (Latest Contact Info) Description 01/12/2012 9:26 AM EDT - 01/12/2012 11:59 PM EDT Hospital Encounter [place] [address] CLINIC, Raine Casey MD [facility] [address] PEDIATRIC [place] [address] Abdominal pain Discharge Disposition: Home Social History [...] site documented in this encounter Care Teams Liner Machine Operator Relationship Specialty Start Date End Date Alex Wagoner MD [address] [place] [address] PCP - General 01/01/12 07/31/13 documented as of this encounter
--- OUTSIDE RECORDS SUMMARY | 2024-08-08 19:42 | XMS_ITS | Encounter Summary ---
[place] [address] Care Team Providers Care Xerox Machine Assembler Name Role Phone Alex Wagoner MD Primary Care Provider [phone] Reason for Visit * Reason Comments Follow-up Accompanied by mom ( Gabi). Encounter Details Date Type Department Care Team (Latest Contact Info) Description 01/06/2012 11:30 AM EDT Follow-Up [place] [address] Raine Jeffries MD [facility] DR PEDIATRIC [place] [address] Abdominal pain (Primary Dx); Early satiety; Nausea; [...] 99.87% 01/05 11:38 AM EDT Growth Chart: [facility] (Girls, 2- 20 Years) documented in this [...] call the following numbers: Wednesday-Wednesday 8:00am-5:00pm: Office [phone], or nurse [phone]. After hours or on weekends: [phone] and ask for the Pediatric Color Mixer senior director of global commercial technology solutions. documented in this encounter Progress Notes * Raine Jeffries MD - 01/06/2012 12:17 PM EDT 01/06/12 Nimisha Olivo is a 16 y.o. 6 m.o. female who is seen for a follow-up of abdominal pain, vomiting,nausea at the [facility]. She was last seen [...] 94.7kg) 99.13% of growth percentile based on xfligr-bru-fqq. 8.45% of growth percentile based on nwncjoj-jiu-qvj. Body mass index is 41.09 kg/(m^2). 99.46% [...] site documented in this encounter Care Teams Xerox Machine Assembler Relationship Specialty Start Date End Date Alex Wagoner MD [address] [place] [address] PCP - General 01/01/12 07/31/13 documented as of this encounter
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
== END 2024-08-08 19:33 | disposition home or self-care (01) ==
LOC: ER 19:40
PROVIDERS: Emergency Provider Emergency Medicine
DX: K08.89 Other specified disorders of teeth and supporting structures (principal); K04.7 Periapical abscess without sinus
CPT/HCPCS: 99283

== ENCOUNTER 2025-01-29 18:44 | Outpatient (REF) | payer MEDICAID, SELFPAY | END 2025-01-29 18:45 | disposition home or self-care (01) | LOC: LBN 18:44 | PROVIDERS: Visit Provider Obstetrics & Gynecology | DX: R30.0 Dysuria (principal); Z31.9 Encounter for procreative management, unspecified | CPT/HCPCS: 87086 ==

== ENCOUNTER 2025-02-05 14:59 | Outpatient (CLI) | payer MEDICAID, SELFPAY ==
[2025-02-05 16:09] LABS: HCG Quant, Pregnancy 151 mIU/mL (1-3); TSH (W/Ref FT4) 0.88 uIU/mL (0.36-3.74)
[2025-02-05 22:12] LABS: FSH 0.4 mIU/mL (See Note)
[2025-02-07 18:32] LABS: Antimullerian Hormone 2.2 ng/mL (0.89-9.9)
== END 2025-02-05 15:00 | disposition home or self-care (01) ==
LOC: LBO 14:59
PROVIDERS: Visit Provider Obstetrics & Gynecology
DX: Z31.9 Encounter for procreative management, unspecified (principal); N97.9 Female infertility, unspecified
CPT/HCPCS: 36415; 83001; 83520; 84443; 84702

== ENCOUNTER 2025-04-04 04:17 | Outpatient (CLI) | payer MEDICAID, SELFPAY ==
[2025-04-04 15:54] LABS: Abs Immature Grans 0.04 10^3/uL (0.0-0.06); HCT 38.0 % (36.0-46.0); HGB 12.9 g/dL (11.2-15.7); Immature Grans % 0.3 %; MCH 28.7 pg (27.0-33.0); MCHC 33.9 % (32.0-36.0); MCV 84 fL (80-95); MPV 9.7 fL (8.0-11.0); Platelet Count 274 10^3/uL (130-400); RBC 4.50 10^6/uL (3.93-5.22); RDW 13.5 % (11.7-14.6); RDW-SD 42.0 fL; WBC 12.74 10^3/uL (4.4-10.8)
[2025-04-04 16:11] LABS: Hemoglobin A1C 5.6 % (<5.7)
[2025-04-04 17:02] LABS: TSH (W/Ref FT4) 0.55 uIU/mL (0.36-3.74)
[2025-04-04 18:04] LABS: Lab Add On Test DONE
[2025-04-04 18:16] LABS: ALT 56 U/L (14-59); AST 78 U/L (15-37); Albumin 3.2 g/dL (3.4-5.0); Alkaline Phosphatase 94 U/L (46-116); Anion Gap 10.4 mmol/L (3-11); BUN 4 mg/dL (7-18); Bilirubin, Total 0.7 mg/dL (0.2-1.0); CO2 25.6 mmol/L (21.0-32.0); Calcium 9.5 mg/dL (8.5-10.1); Chloride 104 mmol/L (98-107); Estimated GFR 131.75 (mL/min/1.73m2); Glucose 94 mg/dL (74-106); Potassium 3.0 mmol/L (3.5-5.1); Sodium 140 mmol/L (136-145); Total Protein 7.3 g/dL (6.4-8.2)
[2025-04-04 23:34] LABS: Hepatitis C Ab w Rflx HCV PCR Negative (Negative)
[2025-04-04 23:36] LABS: HIV-1/2 Ag & Ab Screen Negative (Negative)
[2025-04-05 11:25] LABS: Rubella IgG Ab (UVM) Negative (See Note)
[2025-04-08 14:14] LABS: Syphilis IgG w/Reflex Nonreactive (Nonreactive)
== END 2025-04-04 04:18 | disposition home or self-care (01) ==
LOC: LBO 04:17
PROVIDERS: Visit Provider Advanced Practice Midwife
DX: Z34.91 Encounter for supervision of normal pregnancy, unspecified, first trimester (principal)
CPT/HCPCS: 36415; 80053; 81220; 81222; 86787; 86803; 86850; 86900; 86901; 87340; 87389; 83036; 84443; 85025; 86762; 86780

== ENCOUNTER 2025-04-04 15:59 | Outpatient (REF) | payer MEDICAID, SELFPAY ==
--- NOTE | 2025-04-04 14:00 | PAPFT_PTH ---
PATIENT: Nimisha Olivo LOC: [facility] U#:[id number] AGE/SX: 29/F ROOM: RE04/04/[address]: Nuria Palmer CNM : 1995 BED: DIS: 04/04/2025 SPEC #: [id number] RECD: 04/04/25 18:33 STATUS: ASHLEIGH REQ #: [id number] LUL: 04/04/25 14:[address]: Nuria Palmer DEPT: [facility] Cytology RECD BY: Genevieve Gonzalez ENTERED: 04/04/25 18:33 SP TYPE: PAPFT OTHR DR: Unknown,Unknown Tissues: 1 - CX/ENDOCX FOR PAP SMEARS Procedures: PAP THIN PREP/UVM Screening HPV DNA PROBE Comments: [id number] (HPV 16 & 18/45) (CHLAMYDIA/GC)
[2025-04-05 12:14] LABS: Chlamydia Result Negative (Negative); GC Result Negative (Negative)
== END 2025-04-04 16:00 | disposition home or self-care (01) ==
LOC: LBN 15:59
PROVIDERS: Visit Provider Advanced Practice Midwife
DX: Z34.91 Encounter for supervision of normal pregnancy, unspecified, first trimester (principal); Z12.4 Encounter for screening for malignant neoplasm of cervix
CPT/HCPCS: 80307; 80348; 87491; 87591; 88142; 87086; 87480; 87510; 87624; 87660

== ENCOUNTER 2025-04-18 02:24 | Outpatient (CLI) | payer MEDICAID, SELFPAY ==
--- NOTE | 2025-04-18 13:45 | DI.US_ITS ---
Exam(s) US OB 1ST TRIMESTER EXAM: US OB 1ST TRIMESTER CLINICAL HISTORY: CONFIRM IUP,? UTERINE FIBROID DISPLACING GESTATION,z34.90. COMPARISON: US US PELVIS TRANSVAGINAL from 01/24/2020 TECHNIQUE: Transabdominal Transvaginal first trimester obstetrical ultrasound performed. FINDINGS: Sonographic images demonstrate a single intrauterine gestation. A pole are seen. Sonographically assessed gestational age based upon crown-rump length of 8 cm is: 13 weeks 6 days Estimated date of delivery based on this ultrasound is: 10/18/2025 Estimated date of delivery based upon LMP: 10/18/2025 heart rate motion is Dopplered at: 138 bpm. No free fluid identified. The ovaries were not visualized on this examination. anatomy is not adequately visualized on this examination. Pelvic Measurments Uterus: 13.6 long by 7.8 AP by 10.6 transverse cm. No obvious fibroids were identified on this examination. IMPRESSION: Single live intrauterine gestation as above. Estimated gestational age is 13 weeks 6 days. DATA REPOSITORY:
== END 2025-04-18 02:44 ==
PROVIDERS: PCP Nurse Practitioner Family; Visit Provider Obstetrics & Gynecology
DX: Z32.01 Encounter for pregnancy test, result positive (principal)
CPT/HCPCS: 76801

== ENCOUNTER 2025-05-16 14:14 | Outpatient (CLI) | payer MEDICAID, SELFPAY ==
[2025-05-16 15:34] LABS: ALT 24 U/L (14-59); AST 17 U/L (15-37); Albumin 2.6 g/dL (3.4-5.0); Alkaline Phosphatase 86 U/L (46-116); Anion Gap 6.1 mmol/L (3-11); BUN 4 mg/dL (7-18); Bilirubin, Total 0.3 mg/dL (0.2-1.0); CO2 27.9 mmol/L (21.0-32.0); Calcium 9.4 mg/dL (8.5-10.1); Chloride 103 mmol/L (98-107); Estimated GFR 131.75 (mL/min/1.73m2); Glucose 90 mg/dL (74-106); Potassium 3.8 mmol/L (3.5-5.1); Sodium 137 mmol/L (136-145); Total Protein 6.8 g/dL (6.4-8.2)
[2025-05-16 18:33] LABS: Cannabinoids THC Positive (Negative); METHADONE URINE SCREEN Negative (Negative)
[2025-05-17 12:23] LABS: Fentanyl Scr w/Rfx Confirm Positive ng/mL (<1)
[2025-05-18 09:28] LABS: Norfentanyl Confirmation >200 ng/mL (<10)
[2025-05-21 13:13] LABS: AFP 36.3 ng/mL; Prev Pregnancy w/NTD No; RECOMMENDED FOLLOW UP None.
== END 2025-05-16 14:15 | disposition home or self-care (01) ==
LOC: LBO 14:15
PROVIDERS: Advanced Practice Midwife; Visit Provider Advanced Practice Midwife
DX: R74.8 Abnormal levels of other serum enzymes; Z34.91 Encounter for supervision of normal pregnancy, unspecified, first trimester
CPT/HCPCS: 36415; 80053; 80307; 80348; 80354; 82105

== ENCOUNTER 2025-07-31 01:23 | Outpatient (CLI) | payer MEDICAID, SELFPAY ==
[2025-07-31 14:56] LABS: HCT 35.5 % (36.0-46.0); HGB 11.9 g/dL (11.2-15.7); MCH 28.5 pg (27.0-33.0); MCHC 33.5 % (32.0-36.0); MCV 85 fL (80-95); MPV 9.2 fL (8.0-11.0); Platelet Count 275 10^3/uL (130-400); RBC 4.17 10^6/uL (3.93-5.22); RDW 13.4 % (11.7-14.6); RDW-SD 42.2 fL; WBC 13.54 10^3/uL (4.4-10.8)
[2025-07-31 16:00] LABS: Glucose,1 Hr (Glucola) 78 mg/dL (80-140)
[2025-07-31 16:11] LABS: ALT 13 U/L (14-59); AST 13 U/L (15-37); Albumin 2.1 g/dL (3.4-5.0); Alkaline Phosphatase 117 U/L (46-116); Anion Gap 11.0 mmol/L (3-11); BUN 1 mg/dL (7-18); Bilirubin, Total 0.1 mg/dL (0.2-1.0); CO2 22.0 mmol/L (21.0-32.0); Calcium 8.7 mg/dL (8.5-10.1); Chloride 107 mmol/L (98-107); Estimated GFR 138.17 (mL/min/1.73m2); Glucose 77 mg/dL (74-106); Potassium 3.2 mmol/L (3.5-5.1); Sodium 140 mmol/L (136-145); Total Protein 6.3 g/dL (6.4-8.2)
== END 2025-07-31 01:24 | disposition home or self-care (01) ==
LOC: LBO 01:23
PROVIDERS: Advanced Practice Midwife; Visit Provider Advanced Practice Midwife
DX: R74.8 Abnormal levels of other serum enzymes (principal); Z34.90 Encounter for supervision of normal pregnancy, unspecified, unspecified trimester
CPT/HCPCS: 36415; 80053; 82950; 85027

== ENCOUNTER 2025-07-31 14:55 | Outpatient (REF) | payer MEDICAID, SELFPAY ==
[2025-07-31 17:05] LABS: Cannabinoids THC Positive (Negative); METHADONE URINE SCREEN Positive (Negative)
== END 2025-07-31 14:56 | disposition home or self-care (01) ==
LOC: LBN 14:55
PROVIDERS: Visit Provider Advanced Practice Midwife
DX: Z34.92 Encounter for supervision of normal pregnancy, unspecified, second trimester (principal)
CPT/HCPCS: 80307; 80348

== ENCOUNTER → 2025-09-05 01:06 | Outpatient (CLI) | payer MEDICAID, SELFPAY ==
--- NOTE | 2025-09-05 14:30 | DI.US_ITS ---
Exam(s) US OB FRANCES WEIGHT EXAM: US OB FRANCES WEIGHT CLINICAL HISTORY: growth and FRANCES,DRUG USE,OPOID DEPENDENCE,Z34.90,f11.20,o99.322. TECHNIQUE: Transabdominal obstetrical ultrasound was performed. COMPARISON: US US OB 1ST TRIMESTER from 04/18/2025 FINDINGS: There is a single viable intrauterine gestation with cardiac activity identified-128 bpm The fetus is presently in cephalic position . Amniotic fluid: There is a normal amount of amniotic fluid with an FRANCES of 21.7cm. Placental location: The placenta is posterior grade 2-3,with no evidence of placenta previa. Dating parameters place this at approximately 33 weeks and 1 day gestational age, implying PAULA of October 23, 2025. BPD measures 33 weeks and 5 days HC measures 32 weeks and 5 days AC measures 34 weeks and 0 days FL measures 32 weeks and 1 day Estimated weight is 2168 gm-4 pounds 12 ounces Fetus is at the 27th percentile on the Hadlock scale. IMPRESSION:: Viable 3rd trimester gestation, as described above. Fetus is at the 27th percentile on the Hadlock scale. DATA REPOSITORY:
== END ==
PROVIDERS: Visit Provider Advanced Practice Midwife
DX: F19.10 Other psychoactive substance abuse, uncomplicated; O99.323 Drug use complicating pregnancy, third trimester; F11.20 Opioid dependence, uncomplicated; Z34.93 Encounter for supervision of normal pregnancy, unspecified, third trimester
CPT/HCPCS: 76816

== ENCOUNTER 2025-09-13 09:46 | Outpatient (CLI) | payer MEDICAID, SELFPAY ==
[2025-09-13 15:09] VITALS: BP 120/76; PULSE 80; TEMP 36.6
[2025-09-13 15:45] VITALS: BP 120/76; PULSE 80
--- NOTE | 2025-09-13 16:34 | PDOC.NST_ITS ---
Date of service: 09/13/25 Time of Service: 16:34 NST Evaluation Reason for NST Reasons for Nonstress Test: OTHER, SEE COMMENT Reason for NST Other: High BMI, BRUCE Gestational Age Gestational Age in Weeks and Days: 35 Weeks and 0Days Test and Monitor Explained Test/Monitor Explained: Test Explained, Monitor Explained and Patient Verbalized Understanding Vital Signs Blood Pressure: 120/76 Pulse: 80 Temperature: 97.9 F NST Information Date on Monitor: 09/13/25 Time on Monitor: 15:05 Date off Monitor: 09/13/25 Time off Monitor: 15:47 Total Time on Monitor: 42 NST Interventions: PO Hydration Contraction Frequency: 0 NST Evaluation Patient States Movement: Present FHR Baseline: 125 Variability: Moderate 6-25 bpm Accelerations: 15x15 Decelerations: None NST Results: Reactive Note Ultrasound Done: N/A. NST Note Note: [place] 36 wk [place] [facility] [place] Reviewed and Verified by: Nuria Palmer
[2025-09-13 16:35] VITALS: BP 120/76; PULSE 80; TEMP 36.6
== END 2025-09-13 15:50 ==
LOC: BCD 09:46 → OBS 15:07
PROVIDERS: Visit Provider Advanced Practice Midwife
DX: Z3A.35 35 weeks gestation of pregnancy (principal); O99.323 Drug use complicating pregnancy, third trimester; O99.213 Obesity complicating pregnancy, third trimester
CPT/HCPCS: 59025